=== PATIENT | female | born 1965 | race Caucasian/White ===

== ENCOUNTER 2024-08-25 13:52 | Inpatient (IN) | payer OTHER, SELFPAY ==
[2024-08-25 14:20] VITALS: BP 184/93; PULSE 92; RESP 19; TEMP 37.2; O2SAT 96
[2024-08-25 14:23] VITALS: BP 184/93; PULSE 92; RESP 20; TEMP 37.2; O2SAT 96
--- NOTE | 2024-08-25 16:59 | PC.ADMIT ---
Patient was admitted onto the unit at 14:12 on a 12b from [facility] for treatment of schizoaffective disorder. Patient initially was admitted to [facility] after reporting she had fallen at her long term (per assessment, unclear if this is true) but was notably experiencing psychosis and has not been compliant with her medications while at the long term. Per report from nurses at [facility], patient has refused all medications and has received IM Zyprexa x2 since being at their facility. Upon admission assessment, patient is occasionally oriented to self and that she is in the hospital, other times states My name is not Kate, it's jaleesa! . She presents as labile, with disorganized thought process and is nonsensical at times. When attempting to ask admission questions, patient states I'm not answering anything without my oracle manager! Stop asking me questions, it's in my chart which is probably full of lies! . Patient allowed vitals to be taken but refused to be weighed and began yelling at nurses to bring her to her room during admission assessment. Skin check completed with another nurse; patient has right leg amputation with a red rash covering the right thigh above the amputation site, along with multiple scratches on her left leg and dry, flaky skin to her bilateral arms. Patient has a prosthetic leg which she uses at home, but was given a wheelchair on the unit and has been placed on 5 minute checks.
--- NOTE | 2024-08-25 17:20 | PC.NURSE ---
Patient has refused to answer if she has received the Flu vaccine as of yet for this year, but declined when offered to her today.
[2024-08-25 20:00] VITALS: BP 183/88; PULSE 83; RESP 16; TEMP 36.6; O2SAT 96
[2024-08-26 08:00] VITALS: BP 100/56; PULSE 82; RESP 18; TEMP 36.6; O2SAT 96
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
--- NOTE | 2024-08-26 12:42 | P.CONHOSP_ITS ---
History of Present Illness Data of Consult Service Date: 08/26/24 Primary Care Provider: None Physician HPI Reason for consult: Admission H&P Pt is a 59-year-old female with a PMH significant for?HTN, spn-aemwuao-ozecumjdz type 2 diabetes, peripheral neuropathy, right AKA, GERD, and schizoaffective disorder who is admitted to [facility] for psychosis. Patient lives in a penitentiary and apparently has been noncompliant with medications and self dialogue eating for the past 2 weeks. Patient initially presented with all-over body pain secondary to fall at penitentiary, but patient was observed by staff to be sitting comfortably outside and did not fall. ED imaging negative for acute subluxation or fracture.. Medical consult for admission H&P. ?Patient seen and evaluated in her room where she appears actively psychotic and manic, initially stating her name is Joceline before eventually arriving at [facility]. Patient noted to become agitated at times during interview. Patient particularly worried about getting her correct dose of melatonin at night and gabapentin 3 times a day. Complains of chronic headache, peripheral neuropathy, and back pain, otherwise has no acute medical complaints. Review of Systems Review of Systems: Chronic headache, peripheral neuropathy, and back pain Otherwise no acute medical complaints [facility] Medical History (Updated 08/26/24 @ 14:05 by GRIFFIN Singer) Peripheral neuropathy GERD (gastroesophageal reflux disease) HTN (hypertension) Non-insulin dependent type 2 diabetes mellitus Social History Household Members: Other Household Members Other:: [facility] Housing: Other Housing Other:: [facility] Patient Tobacco Use Status: Never used Tobacco Use of substances other than those prescribed or required for medical reasons: Refusing to respond Currently Displaying Signs/Symptoms of Drug Intoxication Withdrawal: No Any prior treatment program specific to substance use: No Do you feel safe in your current relationship?: No Current Relationship Spiritual Healthcare Practices: refusing to answer [facility] Practices: refusing to answer Advance Directives: No Advance Directives Information Provided: No Do you have thoughts of harming others: None Do you have a plan to hurt others: No Plan Recently lost weight without trying: Unsure How much weight loss: Unsure Eating poorly because of decreased appetite: No Nutrition screen score: 4 Nutrition Risks: No Nutritional Risk Patient : No : No Meds Allergies Allergy/AdvReac Type Severity Reaction Status Date / Time nut - unspecified Allergy Unknown Verified 08/25/24 15:31 Active Medications: Current Medications Acetaminophen (Acetaminophen 325 Mg Tablet) 650 mg PO Q6H PRN PRN Reason: Headache/Pain Mild Scale (1-3) Al Hydroxide/Mg Hydroxide (Magnesium Hydrox/Alum Hydrox 30 Ml Oral.Susp) 30 ml PO Q6H PRN PRN Reason: Heartburn/Nausea Docusate Sodium (Docusate Sodium 100 Mg Capsule) 100 mg PO BID PRN PRN Reason: Constipation Gabapentin (Gabapentin 100 Mg Capsule) 200 mg PO BEDTIME [facility] Last Admin: 08/25/24 21:24 Dose: Not Given Gabapentin (Gabapentin 100 Mg Capsule) 200 mg PO TID PRN PRN Reason: malissa/anxiety Hydroxyzine HCl (Hydroxyzine Hcl 25 Mg Tablet) 25 mg PO Q6H PRN PRN Reason: Anxiety Magnesium Hydroxide (Milk Of Magnesia 30 Ml Oral.Susp) 30 ml PO DAILY PRN PRN Reason: Constipation Melatonin (Melatonin 3 Mg Tablet) 3 mg PO BEDTIME MRX1 [facility] Last Admin: 08/25/24 23:24 Dose: Not Given Nifedipine (Nifedipine Er 30 Mg Tab.Er.24) 30 mg PO DAILY [facility]; Protocol Last Admin: 08/26/24 09:00 Dose: Not Given Olanzapine (Olanzapine Odt 10 Mg Tab.Rapdis) 10 mg TRANSLINGU BEDTIME [facility] Last Admin: 08/25/24 21:24 Dose: Not Given Olanzapine (Olanzapine 5 Mg Tablet) 5 mg PO Q4H PRN PRN Reason: psychosis Omeprazole (Omeprazole 20 Mg Capsule.Dr) 20 mg PO BID@0630,1630 PRN PRN Reason: GERD Oxybutynin Chloride (Oxybutynin Chloride Er 5 Mg Tab.Er.24) 5 mg PO BEDTIME [facility] Last Admin: 08/25/24 21:24 Dose: Not Given Senna (Sennosides 8.6 Mg Tablet) 17.2 mg PO BEDTIME PRN PRN Reason: Constipation Home Medications ?Medication ?Instructions ?Recorded ?Confirmed ?Last Taken ?Type Colace 100 mg PO 2XD PRN Constipation 08/25/24 08/25/24 Unknown History Ditropan XL 10 mg PO BEDTIME 08/25/24 08/25/24 Unknown History Dulera 2 inhalation BID 08/25/24 Unknown History Januvia 50 mg PO DAILY 08/25/24 08/25/24 Unknown History MagOx 400 mg PO 1XD 08/25/24 08/25/24 Unknown History Nifedical XL 30 mg PO 1XD 08/25/24 08/25/24 Unknown History Protonix 20 mg PO DAILY 08/25/24 08/25/24 Unknown History Prozac 40 mg PO DAILY 08/25/24 08/25/24 Unknown History Senokot 17.2 mg PO BEDTIME PRN Constipation 08/25/24 08/25/24 Unknown History calcium carbonate 1,000 mg 2XD PRN Heartburn 08/25/24 08/25/24 Unknown History gabapentin 300 mg PO 3XD 08/25/24 08/25/24 Unknown History metformin 500 mg PO BID 08/25/24 08/25/24 Unknown History olanzapine 15 mg PO BEDTIME 08/25/24 08/25/24 Unknown History trazodone 50 mg PO BEDTIME 08/25/24 08/25/24 Unknown History Physical Exam Vital Signs and Narrative: Vital Signs: Last Vital Signs Temp 97.9 F 08/26/24 08:00 Pulse 82 08/26/24 08:00 Resp 18 08/26/24 08:00 BP 100/56 L 08/26/24 08:00 Pulse Ox 96 08/26/24 08:00 O2 Del Method Room Air 08/26/24 08:00 General: Alert, in no acute distress Resp: CTA bilaterally CVS: S1, S2, RRR GI: +BS, NT, no distention Skin: Warm, dry Neuro: Cranial nerves II-XII grossly intact bilaterally. Motor grossly intact bilaterally Extremities: No edema. Right AKA Psych: Actively manic, psychotic Assessment and Plan (1) Medical clearance for psychiatric admission: Status: Acute Plan Pt is a 59-year-old female with a PMH significant for?HTN, jyh-hyutkyj-prhsxuaoy type 2 diabetes, peripheral neuropathy, right AKA, GERD, and schizoaffective disorder who is admitted to [facility] for psychosis. Patient lives in a penitentiary and apparently has been noncompliant with medications and self dialogue eating for the past 2 weeks. Patient initially presented with all-over body pain secondary to fall at penitentiary, but patient was observed by staff to be sitting comfortably outside and did not fall. ED imaging negative for acute subluxation or fracture.. Medical consult for admission H&P. Mood disorder Plan as per Psychiatry HTN Initially hypertensive up to Continue nifedipine Pap-qjiavjq-ifxwyppnp type 2 diabetes Continue Januvia, metformin Encouraged diabetic diet and diabetic snacking Peripheral neuropathy Continue gabapentin GERD Continue PPI Thank you for allowing us to participate in the care of this patient. Signing off at this time. Please re-consult if any acute complaints or issues arise.
[2024-08-26 20:00] VITALS: BP 164/75; PULSE 84; RESP 18; TEMP 36.8; O2SAT 98
[2024-08-26] MEDS: Melatonin 3 MG TABLET PO (21:23)
--- NOTE | 2024-08-27 08:15 | P.PNPSI_ITS ---
Subjective Subjective Date of Service: 08/27/24 Reason For Visit: Schizoaffective Subjective Notes: Section 12B Interim History: The nursing staff reported that overnight she took only melatonin she wants to be called jaleesa and she had outburst she slept on and off. On admission she had a foul-smelling urine and she has not allowed to have blood work or UA. On interview the patient is grossly psychotic with labile mood. Mental Status Exam Mental Status Exam Patient Appearance: Appropriate Patient Orientation: Person Level of Consciousness: Awake Patient Behavior: Guarded and Restless Affect Description: Labile Ability to Follow Directions: Poor Speech Pattern: Impoverished Hallucinations: Auditory Delusions: Paranoid Ideation and Ideas of Reference Thought Process: Distracted Thought Content: positive for [place] and positive for Poverty of Content Judgement: Poor Diagnostics Vital Signs (24Hr): Vital Signs - 24 hr 08/26/24 20:00 Temperature 98.2 F Pulse Rate 84 Respiratory Rate 18 Blood Pressure 164/75 H Pulse Oximetry 98 Oxygen Delivery Method Room Air Medications Medications Current Medications Acetaminophen (Acetaminophen 325 Mg Tablet) 650 mg PO Q6H PRN PRN Reason: Headache/Pain Mild Scale (1-3) Al Hydroxide/Mg Hydroxide (Magnesium Hydrox/Alum Hydrox 30 Ml Oral.Susp) 30 ml PO Q6H PRN PRN Reason: Heartburn/Nausea Docusate Sodium (Docusate Sodium 100 Mg Capsule) 100 mg PO BID PRN PRN Reason: Constipation Gabapentin (Gabapentin 100 Mg Capsule) 200 mg PO BEDTIME [facility] Last Admin: 08/26/24 22:07 Dose: Not Given Gabapentin (Gabapentin 100 Mg Capsule) 200 mg PO TID PRN PRN Reason: malissa/anxiety Hydroxyzine HCl (Hydroxyzine Hcl 25 Mg Tablet) 25 mg PO Q6H PRN PRN Reason: Anxiety Magnesium Hydroxide (Milk Of Magnesia 30 Ml Oral.Susp) 30 ml PO DAILY PRN PRN Reason: Constipation Melatonin (Melatonin 3 Mg Tablet) 3 mg PO BEDTIME MRX1 [facility] Last Admin: 08/26/24 22:09 Dose: Not Given Nifedipine (Nifedipine Er 30 Mg Tab.Er.24) 30 mg PO DAILY [facility]; Protocol Last Admin: 08/26/24 09:00 Dose: Not Given Olanzapine (Olanzapine Odt 10 Mg Tab.Rapdis) 10 mg TRANSLINGU BEDTIME [facility] Last Admin: 08/26/24 22:08 Dose: Not Given Olanzapine (Olanzapine 5 Mg Tablet) 5 mg PO Q4H PRN PRN Reason: psychosis Omeprazole (Omeprazole 20 Mg Capsule.Dr) 20 mg PO BID@0630,1630 PRN PRN Reason: GERD Oxybutynin Chloride (Oxybutynin Chloride Er 5 Mg Tab.Er.24) 5 mg PO BEDTIME [facility] Last Admin: 08/26/24 22:08 Dose: Not Given Senna (Sennosides 8.6 Mg Tablet) 17.2 mg PO BEDTIME PRN PRN Reason: Constipation Allergies Allergies Allergy/AdvReac Type Severity Reaction Status Date / Time nut - unspecified Allergy Unknown Verified 08/25/24 15:31 Assessment & Plan Assessment & Plan (1) Schizoaffective disorder: Status: Acute Code(s): F25.9 - Schizoaffective disorder, unspecified Plan The patient is an elderly female with a past history of schizoaffective disorder, resident of a long-term who was admitted to the emergency room of a local hospital for exacerbation of psychosis. The patient remains grossly psychotic unable to provide any information. Plan 1. Gather collateral information. 2. Continue section 12 B. 3. We will try to gather her medication reconciliation form. On the meantime she has Zyprexa p.r.n. that it seems that it was effective as per report of the emergency room. 4. Continue 15 minute checks Reason for continued inpatient stay Substantial Risk for: inability to function, rapid decompensation and med/psych decompensation Time Spent With Patient Time: Total time managing care of this patient today __20__ minutes.
[2024-08-27 20:00] VITALS: BP 154/74; PULSE 78; RESP 18; TEMP 36.8; O2SAT 95
[2024-08-27] MEDS: Gabapentin 100 MG CAPSULE 200 MG PO (22:20)
[2024-08-27] MEDS: Melatonin 3 MG TABLET PO (22:20)
[2024-08-27] MEDS: Ibuprofen 800 MG TABLET PO (23:00)
[2024-08-28 08:36] VITALS: BP 144/78; PULSE 76; RESP 12; TEMP 36.3; O2SAT 96
[2024-08-28] MEDS: Ibuprofen 800 MG TABLET PO (09:48)
--- NOTE | 2024-08-28 13:05 | P.PNPSI_ITS ---
Subjective Subjective Date of Service: 08/28/24 Reason For Visit: Schizoaffective Subjective Notes: Section 7 and Section 8 Interim History: The nursing staff reported the patient refused all medications and care she was seen self dialogue in noncompliant and very explosive at times. The occupational therapist reported that she was doing fair on a group and suddenly she got angry and broke her walker. Today she requested her magnesium on other medications, she agreed to have blood work today. We are filing for Section 7 and 8. On interview the patient denies new symptoms she is pleasant cooperative but unpredictable. Today we get the role years order and we are putting the IM backup. Mental Status Exam Mental Status Exam Patient Appearance: Appropriate (On wheelchair, amputated) and Unkempt Patient Orientation: Person Level of Consciousness: Awake Patient Behavior: Guarded Mood Description: Withdrawn Affect Description: Labile Patient Cognition Impaired: Yes Ability to Follow Directions: Fair Speech Pattern: Clear Hallucinations: Auditory Delusions: Paranoid Ideation and Ideas of Reference Thought Process: Distracted and Slowed Thinking Thought Content: positive for [place], positive for [place] and positive for Per[place] Judgement: Poor Diagnostics Vital Signs (24Hr): Vital Signs - 24 hr 08/27/24 20:00 08/28/24 08:36 Temperature 98.2 F 97.4 F Pulse Rate 78 76 Respiratory Rate 18 12 Blood Pressure 154/74 H 144/78 H Pulse Oximetry 95 96 Oxygen Delivery Method Room Air Room Air Medications Medications Current Medications Acetaminophen (Acetaminophen 325 Mg Tablet) 650 mg PO Q6H PRN PRN Reason: Headache/Pain Mild Scale (1-3) Al Hydroxide/Mg Hydroxide (Magnesium Hydrox/Alum Hydrox 30 Ml Oral.Susp) 30 ml PO Q6H PRN PRN Reason: Heartburn/Nausea Docusate Sodium (Docusate Sodium 100 Mg Capsule) 100 mg PO BID PRN PRN Reason: Constipation Gabapentin (Gabapentin 100 Mg Capsule) 200 mg PO BEDTIME [facility] Last Admin: 08/27/24 22:20 Dose: 200 mg Gabapentin (Gabapentin 100 Mg Capsule) 200 mg PO TID PRN PRN Reason: malissa/anxiety Hydroxyzine HCl (Hydroxyzine Hcl 25 Mg Tablet) 25 mg PO Q6H PRN PRN Reason: Anxiety Ibuprofen (Ibuprofen 800 Mg Tablet) 800 mg PO Q8H PRN PRN Reason: Pain, Severe (Pain Scale 7-10) Last Admin: 08/28/24 09:48 Dose: 800 mg Magnesium Hydroxide (Milk Of Magnesia 30 Ml Oral.Susp) 30 ml PO DAILY PRN PRN Reason: Constipation Melatonin (Melatonin 3 Mg Tablet) 3 mg PO BEDTIME MRX1 [facility] Last Admin: 08/27/24 22:34 Dose: Not Given Nifedipine (Nifedipine Er 30 Mg Tab.Er.24) 30 mg PO DAILY [facility]; Protocol Last Admin: 08/28/24 09:05 Dose: Not Given Olanzapine (Olanzapine Odt 10 Mg Tab.Rapdis) 10 mg TRANSLINGU BEDTIME [facility] Last Admin: 08/27/24 22:22 Dose: Not Given Olanzapine (Olanzapine 5 Mg Tablet) 5 mg PO Q4H PRN PRN Reason: psychosis Olanzapine (Olanzapine 10 Mg Vial) 10 mg IM BEDTIME PRN PRN Reason: refusal of PO Zyprexa Omeprazole (Omeprazole 20 Mg Capsule.Dr) 20 mg PO BID@0630,1630 PRN PRN Reason: GERD Oxybutynin Chloride (Oxybutynin Chloride Er 5 Mg Tab.Er.24) 5 mg PO BEDTIME [facility] Last Admin: 08/27/24 22:22 Dose: Not Given Senna (Sennosides 8.6 Mg Tablet) 17.2 mg PO BEDTIME PRN PRN Reason: Constipation Allergies Allergies Allergy/AdvReac Type Severity Reaction Status Date / Time nut - unspecified Allergy Unknown Verified 08/25/24 15:31 Assessment & Plan Assessment & Plan (1) Schizoaffective disorder: Status: Acute Code(s): F25.9 - Schizoaffective disorder, unspecified Plan The patient is an elderly female with a past history of schizoaffective disorder, resident of a senior care who was admitted to the emergency room of a local hospital for exacerbation of psychosis. The patient remains grossly psychotic unable to provide any information. Plan 1. Gather collateral information. 2. Continue section 12 B. we have to filed for Section 7 and 8 on August 28 3. We will try to gather her medication reconciliation form. On the meantime she has Zyprexa p.r.n. that it seems that it was effective as per report of the emergency room. 4. Continue 15 minute checks. 5. We got her role years order and we are going to put IM backup. Reason for continued inpatient stay Substantial Risk for: inability to function, rapid decompensation and med/psych decompensation Time Spent With Patient Time: Total time managing care of this patient today _20___ minutes.
[2024-08-28] MEDS: Melatonin 3 MG TABLET PO (20:47)
[2024-08-29] MEDS: Gabapentin 100 MG CAPSULE 200 MG PO (19:58)
[2024-08-29] MEDS: Melatonin 3 MG TABLET PO (19:58)
[2024-08-29] MEDS: OLANZapine ODT 10 MG TAB.RAPDIS TRANSLINGU (19:59)
[2024-08-29 20:00] VITALS: BP 181/89; PULSE 75; RESP 16; TEMP 37.1; O2SAT 96
[2024-08-29] MEDS: oxyBUTYnin chloride ER 5 MG TAB.ER.24 PO (20:00)
--- NOTE | 2024-08-29 20:00 | P.PNPSI_ITS ---
Subjective Subjective Date of Service: 08/29/24 Reason For Visit: Schizoaffective Subjective Notes: Section 7 Interim History: pt pleasant in [place] with some periods of reactivity talking about magnesium, has been refusing vital signs and medication Mental Status Exam Mental Status Exam Patient Appearance: Appropriate (On wheelchair, amputated) and Unkempt Patient Orientation: Person Level of Consciousness: Awake Patient Behavior: Guarded Mood Description: Labile and Apprehensive Affect Description: Labile Patient Cognition Impaired: Yes Ability to Follow Directions: Fair Speech Pattern: Clear Hallucinations: Auditory Delusions: Paranoid Ideation and Ideas of Reference Thought Process: Distracted Thought Content: positive for [place], positive for Circumstantial and positive for Perseveration Judgement: Poor Judgement and Insight: No insight into illness need for tx Medications Medications Current Medications Acetaminophen (Acetaminophen 325 Mg Tablet) 650 mg PO Q6H PRN PRN Reason: Headache/Pain Mild Scale (1-3) Al Hydroxide/Mg Hydroxide (Magnesium Hydrox/Alum Hydrox 30 Ml Oral.Susp) 30 ml PO Q6H PRN PRN Reason: Heartburn/Nausea Docusate Sodium (Docusate Sodium 100 Mg Capsule) 100 mg PO BID PRN PRN Reason: Constipation Gabapentin (Gabapentin 100 Mg Capsule) 200 mg PO BEDTIME [facility] Last Admin: 08/28/24 20:52 Dose: Not Given Gabapentin (Gabapentin 100 Mg Capsule) 200 mg PO TID PRN PRN Reason: malissa/anxiety Hydroxyzine HCl (Hydroxyzine Hcl 25 Mg Tablet) 25 mg PO Q6H PRN PRN Reason: Anxiety Ibuprofen (Ibuprofen 800 Mg Tablet) 800 mg PO Q8H PRN PRN Reason: Pain, Severe (Pain Scale 7-10) Last Admin: 08/28/24 09:48 Dose: 800 mg Magnesium Hydroxide (Milk Of Magnesia 30 Ml Oral.Susp) 30 ml PO DAILY PRN PRN Reason: Constipation Melatonin (Melatonin 3 Mg Tablet) 3 mg PO BEDTIME MRX1 [facility] Last Admin: 08/28/24 23:57 Dose: Not Given Nifedipine (Nifedipine Er 30 Mg Tab.Er.24) 30 mg PO DAILY [facility]; Protocol Last Admin: 08/29/24 08:36 Dose: Not Given Olanzapine (Olanzapine Odt 10 Mg Tab.Rapdis) 10 mg TRANSLINGU BEDTIME [facility] Last Admin: 08/28/24 20:52 Dose: Not Given Olanzapine (Olanzapine 5 Mg Tablet) 5 mg PO Q4H PRN PRN Reason: psychosis Olanzapine (Olanzapine 10 Mg Vial) 10 mg IM BEDTIME PRN PRN Reason: refusal of PO Zyprexa Omeprazole (Omeprazole 20 Mg Capsule.Dr) 20 mg PO BID@0630,1630 PRN PRN Reason: GERD Oxybutynin Chloride (Oxybutynin Chloride Er 5 Mg Tab.Er.24) 5 mg PO BEDTIME [facility] Last Admin: 08/28/24 20:47 Dose: Not Given Senna (Sennosides 8.6 Mg Tablet) 17.2 mg PO BEDTIME PRN PRN Reason: Constipation Allergies Allergies Allergy/AdvReac Type Severity Reaction Status Date / Time nut - unspecified Allergy Unknown Verified 08/25/24 15:31 Assessment & Plan Assessment & Plan (1) Schizoaffective disorder: Status: Acute Code(s): F25.9 - Schizoaffective disorder, unspecified Plan The patient is an elderly female with a past history of schizoaffective disorder, [facility] who was admitted to the emergency room of a local hospital for exacerbation of psychosis. The patient remains grossly psychotic unable to provide any information. Plan 1. Gather collateral information. 2. Continue section 12 B. we have to filed for Section 7 and 8 on August 28 3. We will try to gather her medication reconciliation form. On the meantime she has Zyprexa p.r.n. that it seems that it was effective as per report of the emergency room. 4. Continue 15 minute checks. 5. We got her role years order and we are going to put IM backup. Reason for continued inpatient stay Substantial Risk for: inability to function and rapid decompensation Time Spent With Patient Time: Total time managing care of this patient today ____ minutes.
[2024-08-29] MEDS: Ibuprofen 800 MG TABLET PO (21:20)
[2024-08-30 08:05] VITALS: BP 181/89; PULSE 75; RESP 18; TEMP 37.1; O2SAT 96
--- NOTE | 2024-08-30 11:57 | HO.PSYCHPN ---
Subjective Subjective Date of Service: 08/30/24 Reason For Visit: Schizoaffective Subjective Notes: Section 7 and Section 8 Interim History: The nursing staff reported the patient refused vital signs yesterday. She had been nonsensical irritable unpredictable behavior. Last night she took her medications. Today on interview she was pleasant and cooperative with me she requested her magnesium back time ordering it. Apparently she has refused blood work. Mental Status Exam Mental Status Exam Patient Appearance: Appropriate Patient Orientation: Person and Situation Level of Consciousness: Awake and Appropriate Patient Behavior: Guarded and Passive Mood Description: Withdrawn Affect Description: Constricted Patient Cognition Impaired: Yes Ability to Follow Directions: Good Speech Pattern: Clear Hallucinations: Auditory Delusions: Paranoid Ideation and Ideas of Reference Thought Process: Distracted and Slowed Thinking Thought Content: positive for [place] and positive for Poverty of Content Judgement: Poor Diagnostics Vital Signs (24Hr): Vital Signs - 24 hr 08/29/24 20:00 Temperature 98.8 F Pulse Rate 75 Respiratory Rate 16 Blood Pressure 181/89 H Pulse Oximetry 96 Oxygen Delivery Method Room Air Medications Medications Current Medications Acetaminophen (Acetaminophen 325 Mg Tablet) 650 mg PO Q6H PRN PRN Reason: Headache/Pain Mild Scale (1-3) Al Hydroxide/Mg Hydroxide (Magnesium Hydrox/Alum Hydrox 30 Ml Oral.Susp) 30 ml PO Q6H PRN PRN Reason: Heartburn/Nausea Docusate Sodium (Docusate Sodium 100 Mg Capsule) 100 mg PO BID PRN PRN Reason: Constipation Gabapentin (Gabapentin 100 Mg Capsule) 200 mg PO BEDTIME [facility] Last Admin: 08/29/24 19:58 Dose: 200 mg Gabapentin (Gabapentin 100 Mg Capsule) 200 mg PO TID PRN PRN Reason: malissa/anxiety Hydroxyzine HCl (Hydroxyzine Hcl 25 Mg Tablet) 25 mg PO Q6H PRN PRN Reason: Anxiety Ibuprofen (Ibuprofen 800 Mg Tablet) 800 mg PO Q8H PRN PRN Reason: Pain, Severe (Pain Scale 7-10) Last Admin: 08/29/24 21:20 Dose: 800 mg Magnesium Hydroxide (Milk Of Magnesia 30 Ml Oral.Susp) 30 ml PO DAILY PRN PRN Reason: Constipation Melatonin (Melatonin 3 Mg Tablet) 3 mg PO BEDTIME MRX1 [facility] Last Admin: 08/29/24 23:27 Dose: Not Given Nifedipine (Nifedipine Er 30 Mg Tab.Er.24) 30 mg PO DAILY [facility]; Protocol Last Admin: 08/30/24 09:26 Dose: Not Given Olanzapine (Olanzapine Odt 10 Mg Tab.Rapdis) 10 mg TRANSLINGU BEDTIME [facility] Last Admin: 08/29/24 19:59 Dose: 10 mg Olanzapine (Olanzapine 5 Mg Tablet) 5 mg PO Q4H PRN PRN Reason: psychosis Olanzapine (Olanzapine 10 Mg Vial) 10 mg IM BEDTIME PRN PRN Reason: refusal of PO Zyprexa Omeprazole (Omeprazole 20 Mg Capsule.Dr) 20 mg PO BID@0630,1630 PRN PRN Reason: GERD Oxybutynin Chloride (Oxybutynin Chloride Er 5 Mg Tab.Er.24) 5 mg PO BEDTIME [facility] Last Admin: 08/29/24 20:00 Dose: 5 mg Senna (Sennosides 8.6 Mg Tablet) 17.2 mg PO BEDTIME PRN PRN Reason: Constipation Allergies Allergies Allergy/AdvReac Type Severity Reaction Status Date / Time nut - unspecified Allergy Unknown Verified 08/25/24 15:31 Assessment & Plan Assessment & Plan (1) Schizoaffective disorder: Status: Acute Code(s): F25.9 - Schizoaffective disorder, unspecified Plan The patient is an elderly female with a past history of schizoaffective disorder, resident of a nursing home who was admitted to the emergency room of a local hospital for exacerbation of psychosis. The patient remains grossly psychotic unable to provide any information. Plan 1. Gather collateral information. 2. Continue section 12 B. we have to filed for Section 7 and 8 on August 28 3. We will try to gather her medication reconciliation form. On the meantime she has Zyprexa p.r.n. that it seems that it was effective as per report of the emergency room. 4. Continue 15 minute checks. 5. We got her Ont[facility] order and we are going to put IM backup. Reason for continued inpatient stay Substantial Risk for: inability to function, rapid decompensation and med/psych decompensation Time Spent With Patient Time: Total time managing care of this patient today __20__ minutes.
[2024-08-30] MEDS: OLANZapine ODT 10 MG TAB.RAPDIS TRANSLINGU (19:51)
[2024-08-30] MEDS: Gabapentin 100 MG CAPSULE 200 MG PO (19:52)
[2024-08-30] MEDS: Magnesium Oxide 400 MG TABLET PO (19:53)
[2024-08-30 20:00] VITALS: BP 149/77; PULSE 86; TEMP 36.6; O2SAT 92
[2024-08-30] MEDS: Ibuprofen 800 MG TABLET PO (22:04)
[2024-08-31 08:00] VITALS: BP 165/89; PULSE 82; RESP 20; TEMP 36.6; O2SAT 95
--- NOTE | 2024-08-31 12:57 | P.PNPSI_ITS ---
Subjective Subjective Date of Service: 08/31/24 Reason For Visit: Schizoaffective Subjective Notes: Section 7 Interim History: Patient on a section 7 did take olanzapine refusing point of care refused blood pressure medication not overly aggressive Mental Status Exam Mental Status Exam Patient Appearance: Appropriate Patient Orientation: Person and Situation Level of Consciousness: Awake and Appropriate Patient Behavior: Guarded and Passive Mood Description: Withdrawn and Flat Affect Description: Constricted Patient Cognition Impaired: Yes Ability to Follow Directions: Good Speech Pattern: Clear Hallucinations: Auditory Delusions: Paranoid Ideation and Ideas of Reference Thought Process: Distracted and Slowed Thinking Thought Content: positive for [place] and positive for Poverty of Content Judgement: Poor Diagnostics Vital Signs (24Hr): Vital Signs - 24 hr 08/30/24 20:00 08/31/24 08:00 Temperature 98 F 97.8 F Pulse Rate 86 82 Respiratory Rate 20 Blood Pressure 149/77 H 165/89 H Pulse Oximetry 92 95 Oxygen Delivery Method Room Air Room Air Medications Medications Current Medications Acetaminophen (Acetaminophen 325 Mg Tablet) 650 mg PO Q6H PRN PRN Reason: Headache/Pain Mild Scale (1-3) Al Hydroxide/Mg Hydroxide (Magnesium Hydrox/Alum Hydrox 30 Ml Oral.Susp) 30 ml PO Q6H PRN PRN Reason: Heartburn/Nausea Docusate Sodium (Docusate Sodium 100 Mg Capsule) 100 mg PO BID PRN PRN Reason: Constipation Gabapentin (Gabapentin 100 Mg Capsule) 200 mg PO BEDTIME [facility] Last Admin: 08/30/24 19:52 Dose: 200 mg Gabapentin (Gabapentin 100 Mg Capsule) 200 mg PO TID PRN PRN Reason: malissa/anxiety Hydroxyzine HCl (Hydroxyzine Hcl 25 Mg Tablet) 25 mg PO Q6H PRN PRN Reason: Anxiety Ibuprofen (Ibuprofen 800 Mg Tablet) 800 mg PO Q8H PRN PRN Reason: Pain, Severe (Pain Scale 7-10) Last Admin: 08/30/24 22:04 Dose: 800 mg Magnesium Hydroxide (Milk Of Magnesia 30 Ml Oral.Susp) 30 ml PO DAILY PRN PRN Reason: Constipation Magnesium Oxide (Magnesium Oxide 400 Mg Tablet) 400 mg PO BEDTIME [facility] Last Admin: 08/30/24 19:53 Dose: 400 mg Melatonin (Melatonin 3 Mg Tablet) 3 mg PO BEDTIME MRX1 [facility] Last Admin: 08/30/24 22:10 Dose: Not Given Nifedipine (Nifedipine Er 30 Mg Tab.Er.24) 30 mg PO DAILY [facility]; Protocol Last Admin: 08/31/24 08:38 Dose: Not Given Olanzapine (Olanzapine Odt 10 Mg Tab.Rapdis) 10 mg TRANSLINGU BEDTIME [facility] Last Admin: 08/30/24 19:51 Dose: 10 mg Olanzapine (Olanzapine 5 Mg Tablet) 5 mg PO Q4H PRN PRN Reason: psychosis Olanzapine (Olanzapine 10 Mg Vial) 10 mg IM BEDTIME PRN PRN Reason: refusal of PO Zyprexa Omeprazole (Omeprazole 20 Mg Capsule.Dr) 20 mg PO BID@0630,1630 PRN PRN Reason: GERD Oxybutynin Chloride (Oxybutynin Chloride Er 5 Mg Tab.Er.24) 5 mg PO BEDTIME [facility] Last Admin: 08/30/24 19:56 Dose: Not Given Senna (Sennosides 8.6 Mg Tablet) 17.2 mg PO BEDTIME PRN PRN Reason: Constipation Allergies Allergies Allergy/AdvReac Type Severity Reaction Status Date / Time nut - unspecified Allergy Unknown Verified 08/25/24 15:31 Assessment & Plan Assessment & Plan (1) Schizoaffective disorder: Status: Acute Code(s): F25.9 - Schizoaffective disorder, unspecified Plan The patient is an elderly female with a past history of schizoaffective disorder, resident of a [facility] who was admitted to the emergency room of a local hospital for exacerbation of psychosis. The patient remains grossly psychotic unable to provide any information. Plan 1. Gather collateral information. 2. Continue section 12 B. we have to filed for Section 7 and 8 on August 28 3. We will try to gather her medication reconciliation form. On the meantime she has Zyprexa p.r.n. that it seems that it was effective as per report of the emergency room. 4. Continue 15 minute checks. 5. We got her Ontiver[facility] order and we are going to put IM backup. 08/31/2024 Continue olanzapine with IM backup monitor blood pressure and blood sugar Informed Consent: does not understand Reason for continued inpatient stay Substantial Risk for: inability to function and rapid decompensation Time Spent With Patient Time: Total time managing care of this patient today ____ minutes.
--- NOTE | 2024-08-31 12:58 | P.PNPSI_ITS ---
Subjective Subjective Reason For Visit: Schizoaffective Diagnostics Vital Signs (24Hr): Vital Signs - 24 hr 08/30/24 20:00 08/31/24 08:00 Temperature 98 F 97.8 F Pulse Rate 86 82 Respiratory Rate 20 Blood Pressure 149/77 H 165/89 H Pulse Oximetry 92 95 Oxygen Delivery Method Room Air Room Air Medications Medications Current Medications Acetaminophen (Acetaminophen 325 Mg Tablet) 650 mg PO Q6H PRN PRN Reason: Headache/Pain Mild Scale (1-3) Al Hydroxide/Mg Hydroxide (Magnesium Hydrox/Alum Hydrox 30 Ml Oral.Susp) 30 ml PO Q6H PRN PRN Reason: Heartburn/Nausea Docusate Sodium (Docusate Sodium 100 Mg Capsule) 100 mg PO BID PRN PRN Reason: Constipation Gabapentin (Gabapentin 100 Mg Capsule) 200 mg PO BEDTIME [facility] Last Admin: 08/30/24 19:52 Dose: 200 mg Gabapentin (Gabapentin 100 Mg Capsule) 200 mg PO TID PRN PRN Reason: malissa/anxiety Hydroxyzine HCl (Hydroxyzine Hcl 25 Mg Tablet) 25 mg PO Q6H PRN PRN Reason: Anxiety Ibuprofen (Ibuprofen 800 Mg Tablet) 800 mg PO Q8H PRN PRN Reason: Pain, Severe (Pain Scale 7-10) Last Admin: 08/30/24 22:04 Dose: 800 mg Magnesium Hydroxide (Milk Of Magnesia 30 Ml Oral.Susp) 30 ml PO DAILY PRN PRN Reason: Constipation Magnesium Oxide (Magnesium Oxide 400 Mg Tablet) 400 mg PO BEDTIME [facility] Last Admin: 08/30/24 19:53 Dose: 400 mg Melatonin (Melatonin 3 Mg Tablet) 3 mg PO BEDTIME MRX1 [facility] Last Admin: 08/30/24 22:10 Dose: Not Given Nifedipine (Nifedipine Er 30 Mg Tab.Er.24) 30 mg PO DAILY [facility]; Protocol Last Admin: 08/31/24 08:38 Dose: Not Given Olanzapine (Olanzapine Odt 10 Mg Tab.Rapdis) 10 mg TRANSLINGU BEDTIME [facility] Last Admin: 08/30/24 19:51 Dose: 10 mg Olanzapine (Olanzapine 5 Mg Tablet) 5 mg PO Q4H PRN PRN Reason: psychosis Olanzapine (Olanzapine 10 Mg Vial) 10 mg IM BEDTIME PRN PRN Reason: refusal of PO Zyprexa Omeprazole (Omeprazole 20 Mg Capsule.Dr) 20 mg PO BID@0630,1630 PRN PRN Reason: GERD Oxybutynin Chloride (Oxybutynin Chloride Er 5 Mg Tab.Er.24) 5 mg PO BEDTIME [facility] Last Admin: 08/30/24 19:56 Dose: Not Given Senna (Sennosides 8.6 Mg Tablet) 17.2 mg PO BEDTIME PRN PRN Reason: Constipation Allergies Allergies Allergy/AdvReac Type Severity Reaction Status Date / Time nut - unspecified Allergy Unknown Verified 08/25/24 15:31 Assessment & Plan Assessment & Plan (1) Schizoaffective disorder: Status: Acute Code(s): F25.9 - Schizoaffective disorder, unspecified Plan The patient is an elderly female with a past history of schizoaffective disorder, [facility] [place] [facility] who was admitted to the emergency room of a local hospital for exacerbation of psychosis. The patient remains grossly psychotic unable to provide any information. Plan 1. Gather collateral information. 2. Continue section 12 B. we have to filed for Section 7 and 8 on August 28 3. We will try to gather her medication reconciliation form. On the meantime she has Zapoorvaa p.r.n. that it seems that it was effective as per report of the emergency room. 4. Continue 15 minute checks. 5. We got her Ontiver[facility] order and we are going to put IM backup. Time Spent With Patient Time: Total time managing care of this patient today ____ minutes.
[2024-08-31] MEDS: Ibuprofen 800 MG TABLET PO (15:32)
[2024-08-31 19:59] VITALS: BP 166/107; PULSE 74; TEMP 36.8; O2SAT 97
[2024-08-31] MEDS: OLANZapine ODT 10 MG TAB.RAPDIS TRANSLINGU (20:44)
[2024-08-31] MEDS: Gabapentin 100 MG CAPSULE 200 MG PO (20:46)
[2024-08-31] MEDS: Magnesium Oxide 400 MG TABLET PO (20:46)
[2024-09-01] MEDS: Ibuprofen 800 MG TABLET PO (06:51)
[2024-09-01 07:05] LABS: Glucose, Whole Blood 141 mg/dL (60-115)
[2024-09-01 08:00] VITALS: BP 145/92; PULSE 80; RESP 18; TEMP 36.1; O2SAT 97
[2024-09-01 09:58] VITALS: BP 137/63
[2024-09-01 19:35] VITALS: BP 161/77; PULSE 77; RESP 18; TEMP 37.1; O2SAT 96
[2024-09-01 19:56] LABS: Glucose, Whole Blood 118 mg/dL (60-115)
[2024-09-01] MEDS: Gabapentin 100 MG CAPSULE 200 MG PO (20:04)
[2024-09-01] MEDS: Magnesium Oxide 400 MG TABLET PO (20:05)
[2024-09-01] MEDS: OLANZapine ODT 10 MG TAB.RAPDIS TRANSLINGU (20:05)
--- NOTE | 2024-09-01 20:58 | P.PNPSI_ITS ---
Subjective Subjective Date of Service: 09/01/24 Reason For Visit: Schizoaffective Subjective Notes: Section 7 Interim History: Patient on a section 7 does take olanzapine 10 mg bedtime refusing point of care refused blood pressure medication not overly aggressive somewhat isolative. Remains with psychotic preoccupation Medication Compliance: Intermittent Mental Status Exam Mental Status Exam Patient Appearance: Appropriate Patient Orientation: Person and Situation Level of Consciousness: Awake and Appropriate Patient Behavior: Appropriate Behavior Comments: Very talkative about elements of her life and music not wanting to engage regar ding treatment issues Mood Description: Withdrawn and Anxious Affect Description: Constricted and Apprehensive Patient Cognition Impaired: Yes Ability to Follow Directions: Good Speech Pattern: Clear Hallucinations: Auditory Delusions: Paranoid Ideation and Ideas of Reference Thought Process: Distracted and Rumination Thought Content: positive for [place], negative for Circumstantial, positive for Thought Blocking, negative for Suicidal Ideation or negative for Homicidal Ideation Judgement: Poor Diagnostics Vital Signs (24Hr): Vital Signs - 24 hr 09/01/24 08:00 09/01/24 09:58 09/01/24 19:35 Temperature 97.0 F 98.7 F Pulse Rate 80 77 Respiratory Rate 18 18 Blood Pressure 145/92 H 137/63 161/77 H Pulse Oximetry 97 96 Oxygen Delivery Method Room Air Room Air Labs Labs: Laboratory Results - last 48 hr 09/01/24 09/01/24 06:56 19:47 POC Glucose 141 H 118 H Medications Medications Current Medications Acetaminophen (Acetaminophen 325 Mg Tablet) 650 mg PO Q6H PRN PRN Reason: Headache/Pain Mild Scale (1-3) Al Hydroxide/Mg Hydroxide (Magnesium Hydrox/Alum Hydrox 30 Ml Oral.Susp) 30 ml PO Q6H PRN PRN Reason: Heartburn/Nausea Docusate Sodium (Docusate Sodium 100 Mg Capsule) 100 mg PO BID PRN PRN Reason: Constipation Gabapentin (Gabapentin 100 Mg Capsule) 200 mg PO BEDTIME [facility] Last Admin: 09/01/24 20:04 Dose: 200 mg Gabapentin (Gabapentin 100 Mg Capsule) 200 mg PO TID PRN PRN Reason: malissa/anxiety Hydroxyzine HCl (Hydroxyzine Hcl 25 Mg Tablet) 25 mg PO Q6H PRN PRN Reason: Anxiety Ibuprofen (Ibuprofen 800 Mg Tablet) 800 mg PO Q8H PRN PRN Reason: Pain, Severe (Pain Scale 7-10) Last Admin: 09/01/24 06:51 Dose: 800 mg Magnesium Hydroxide (Milk Of Magnesia 30 Ml Oral.Susp) 30 ml PO DAILY PRN PRN Reason: Constipation Magnesium Oxide (Magnesium Oxide 400 Mg Tablet) 400 mg PO BEDTIME [facility] Last Admin: 09/01/24 20:05 Dose: 400 mg Melatonin (Melatonin 3 Mg Tablet) 3 mg PO BEDTIME MRX1 [facility] Last Admin: 09/01/24 20:06 Dose: Not Given Nifedipine (Nifedipine Er 30 Mg Tab.Er.24) 30 mg PO DAILY [facility]; Protocol Last Admin: 09/01/24 09:58 Dose: Not Given Olanzapine (Olanzapine Odt 10 Mg Tab.Rapdis) 10 mg TRANSLINGU BEDTIME [facility] Last Admin: 09/01/24 20:05 Dose: 10 mg Olanzapine (Olanzapine 5 Mg Tablet) 5 mg PO Q4H PRN PRN Reason: psychosis Olanzapine (Olanzapine 10 Mg Vial) 10 mg IM BEDTIME PRN PRN Reason: refusal of PO Zyprexa Omeprazole (Omeprazole 20 Mg Capsule.Dr) 20 mg PO BID@0630,1630 PRN PRN Reason: GERD Oxybutynin Chloride (Oxybutynin Chloride Er 5 Mg Tab.Er.24) 5 mg PO BEDTIME [facility] Last Admin: 09/01/24 20:07 Dose: Not Given Senna (Sennosides 8.6 Mg Tablet) 17.2 mg PO BEDTIME PRN PRN Reason: Constipation Allergies Allergies Allergy/AdvReac Type Severity Reaction Status Date / Time nut - unspecified Allergy Unknown Verified 08/25/24 15:31 Assessment & Plan Assessment & Plan (1) Schizoaffective disorder: Status: Acute Code(s): F25.9 - Schizoaffective disorder, unspecified Plan The patient is an elderly female with a past history of schizoaffective disorder, resident of a [facility] who was admitted to the emergency room of a local hospital for exacerbation of psychosis. The patient remains grossly psychotic unable to provide any information. Plan 1. Gather collateral information. 2. Continue section 12 B. we have to filed for Section 7 and 8 on August 28 3. We will try to gather her medication reconciliation form. On the meantime she has Zyprexa p.r.n. that it seems that it was effective as per report of the emergency room. 4. Continue 15 minute checks. 5. We got her Ontiver[facility] order and we are going to put IM backup. 08/31/2024 Continue olanzapine with IM backup monitor blood pressure and blood sugar Informed Consent: does not understand and further education needed Reason for continued inpatient stay Substantial Risk for: inability to function and med/psych decompensation Time Spent With Patient Time: Total time managing care of this patient today ____ minutes.
--- NOTE | 2024-09-02 07:34 | HO.PSYCHPN ---
Subjective Subjective Date of Service: 09/02/24 Reason For Visit: Schizoaffective Subjective Notes: Ontiveros Order and Conditional Voluntary Interim History: Nursing staff reported the patient wants to be called jaleesa, she had been visible in the unit irritable labile denies any symptoms. Her fasting blood sugar at night was 118 but she refused today in the morning. She took her Zyprexa and slept well. On interview the patient denies new symptoms looks confused but redirectable. Mental Status Exam Mental Status Exam Patient Appearance: Appropriate Patient Orientation: Person and Situation Level of Consciousness: Awake and Appropriate Patient Behavior: Guarded Mood Description: Calm and Constricted Affect Description: Withdrawn Patient Cognition Impaired: Yes Ability to Follow Directions: Fair Speech Pattern: Clear Hallucinations: None Delusions: Paranoid Ideation and Ideas of Reference Thought Process: Distracted and Slowed Thinking Thought Content: positive for [place], positive for [place], positive for Poverty of Content and positive for Thought Blocking Judgement: Poor Diagnostics Vital Signs (24Hr): Vital Signs - 24 hr 09/01/24 08:00 09/01/24 09:58 09/01/24 19:35 Temperature 97.0 F 98.7 F Pulse Rate 80 77 Respiratory Rate 18 18 Blood Pressure 145/92 H 137/63 161/77 H Pulse Oximetry 97 96 Oxygen Delivery Method Room Air Room Air Labs 09/02/24 09:08 09/02/24 09:08 Labs: Laboratory Results - last 48 hr 09/01/24 09/01/24 06:56 19:47 POC Glucose 141 H 118 H Medications Medications Current Medications Acetaminophen (Acetaminophen 325 Mg Tablet) 650 mg PO Q6H PRN PRN Reason: Headache/Pain Mild Scale (1-3) Al Hydroxide/Mg Hydroxide (Magnesium Hydrox/Alum Hydrox 30 Ml Oral.Susp) 30 ml PO Q6H PRN PRN Reason: Heartburn/Nausea Docusate Sodium (Docusate Sodium 100 Mg Capsule) 100 mg PO BID PRN PRN Reason: Constipation Gabapentin (Gabapentin 100 Mg Capsule) 200 mg PO BEDTIME FAHAD Last Admin: 09/01/24 20:04 Dose: 200 mg Gabapentin (Gabapentin 100 Mg Capsule) 200 mg PO TID PRN PRN Reason: malissa/anxiety Hydroxyzine HCl (Hydroxyzine Hcl 25 Mg Tablet) 25 mg PO Q6H PRN PRN Reason: Anxiety Ibuprofen (Ibuprofen 800 Mg Tablet) 800 mg PO Q8H PRN PRN Reason: Pain, Severe (Pain Scale 7-10) Last Admin: 09/01/24 06:51 Dose: 800 mg Magnesium Hydroxide (Milk Of Magnesia 30 Ml Oral.Susp) 30 ml PO DAILY PRN PRN Reason: Constipation Magnesium Oxide (Magnesium Oxide 400 Mg Tablet) 400 mg PO BEDTIME FAHAD Last Admin: 09/01/24 20:05 Dose: 400 mg Melatonin (Melatonin 3 Mg Tablet) 3 mg PO BEDTIME MRX1 FAHAD Last Admin: 09/01/24 22:31 Dose: Not Given Nifedipine (Nifedipine Er 30 Mg Tab.Er.24) 30 mg PO DAILY FAHAD; Protocol Last Admin: 09/01/24 09:58 Dose: Not Given Olanzapine (Olanzapine Odt 10 Mg Tab.Rapdis) 10 mg TRANSLINGU BEDTIME FAHAD Last Admin: 09/01/24 20:05 Dose: 10 mg Olanzapine (Olanzapine 5 Mg Tablet) 5 mg PO Q4H PRN PRN Reason: psychosis Olanzapine (Olanzapine 10 Mg Vial) 10 mg IM BEDTIME PRN PRN Reason: refusal of PO Zyprexa Omeprazole (Omeprazole 20 Mg Capsule.Dr) 20 mg PO BID@0630,1630 PRN PRN Reason: GERD Oxybutynin Chloride (Oxybutynin Chloride Er 5 Mg Tab.Er.24) 5 mg PO BEDTIME FAHAD Last Admin: 09/01/24 20:07 Dose: Not Given Senna (Sennosides 8.6 Mg Tablet) 17.2 mg PO BEDTIME PRN PRN Reason: Constipation Allergies Allergies Allergy/AdvReac Type Severity Reaction Status Date / Time nut - unspecified Allergy Unknown Verified 08/25/24 15:31 Assessment & Plan Assessment & Plan (1) Schizoaffective disorder: Status: Acute Code(s): F25.9 - Schizoaffective disorder, unspecified Plan The patient is an elderly female with a past history of schizoaffective disorder, resident of a custodial who was admitted to the emergency room of a local hospital for exacerbation of psychosis. The patient remains grossly psychotic unable to provide any information. Plan 1. Gather collateral information. 2. Continue section 12 B. we have to filed for Section 7 and 8 on August 28 3. We will try to gather her medication reconciliation form. On the meantime she has Zyprexa p.r.n. that it seems that it was effective as per report of the emergency room. 4. Continue 15 minute checks. 5. We got her Ontiveros order and we are going to put IM backup. Reason for continued inpatient stay Substantial Risk for: inability to function, rapid decompensation and med/psych decompensation Time Spent With Patient Time: Total time managing care of this patient today __20__ minutes.
[2024-09-02 08:00] VITALS: BP 132/91; PULSE 83; RESP 16; TEMP 36.7; O2SAT 95
[2024-09-02] MEDS: Ibuprofen 800 MG TABLET PO ×2 (08:38→17:08)
[2024-09-02 08:39] VITALS: BP 132/91
[2024-09-02] MEDS: Gabapentin 100 MG CAPSULE 200 MG PO ×2 (08:39→20:02)
[2024-09-02] MEDS: NIFEdipine ER 30 MG TAB.ER.24 PO (08:39)
[2024-09-02 09:11] LABS: MANUAL DIFF FLAG NO
[2024-09-02 09:14] LABS: Basophils Percent Auto 0.8 % (0-2); Eosinophils Absolute Auto 0.2 X10*3/uL (0.0-0.4); Eosinophils Percent Auto 4.2 % (0-4); Hematocrit 40.1 % (37.0-47.0); Hemoglobin 13.5 g/dl (12.0-16.0); Imm Gran Abs Auto 0.01 X10*3/uL (0.00-0.03); Imm Gran Pct Auto 0.2 % (0.0-0.4); Lymphocytes Absolute Auto 2.2 X10*3/uL (1.2-4.9); Lymphocytes Percent Auto 43.1 % (20-40); Mean Corpuscular HGB Conc 33.7 g/dl (31.0-35.0); Mean Corpuscular Volume 86.1 fL (80.0-98.0); Mean Platelet Volume 9.5 fL (9.4-12.3); Monocytes Absolute Auto 0.5 X10*3/uL (0.1-1.2); Monocytes Percent Auto 9.2 % (2-11); Neutrophils Absolute Auto 2.1 x10*3/uL (2.0-8.3); Neutrophils Percent Auto 42.5 % (45-73); Platelet Count 160 X10*3/uL (160-400); Red Blood Count 4.66 X10*6/uL (4.20-5.50)
[2024-09-02 09:35] LABS: Alanine Aminotransferase 26 U/L (0-31); Albumin Level 3.7 g/dL (3.5-5.0); Alkaline Phosphatase 70 U/L (39-117); Anion Gap 10 (12-20); Aspartate Amino Transferase 26 U/L (5-31); Bilirubin Total 0.3 mg/dL (0.0-1.0); Blood Urea Nitrogen 23 mg/dL (9-16); Calcium 9.4 mg/dL (8.4-10.2); Carbon Dioxide 26 mmol/L (22-29); Chloride 109 mmol/L (96-108); Estimated Glomerular Filt Rate > 60; Glucose Fasting 153 mg/dL (60-99); Potassium 3.7 mmol/L (3.3-5.1); Sodium 141 mmol/L (135-145); Total Protein 6.9 g/dL (6.5-8.0)
[2024-09-02 09:38] LABS: Estimated Average Glucose 111 mg/dL; Hemoglobin A1C 125.4197 umol/L; Hemoglobin A1c % 5.5 % (<6.0); Total Hemoglobin (HGBA1C) 3462.5513 umol/L
[2024-09-02 09:43] LABS: Cholesterol 154 mg/dL (<200); HDL Cholesterol 34 mg/dL (>40); LDL Cholesterol Calculated 92 mg/dL (<100); Triglycerides 143 mg/dL (<150)
[2024-09-02 09:57] LABS: Free T4 (Free Thyroxine) 1.03 ng/dL (0.71-1.85); Thyroid Stimulating Hormone 1.43 uIU/mL (0.32-4.0)
[2024-09-02 10:09] LABS: Folate 7.6 ng/mL (> or = 4.0); Vitamin B12 384 pg/mL (200-900)
[2024-09-02 20:00] VITALS: BP 143/82; PULSE 85; TEMP 36.2; O2SAT 97
[2024-09-02 20:01] LABS: Glucose, Whole Blood 118 mg/dL (60-115)
[2024-09-02] MEDS: Melatonin 3 MG TABLET PO (20:02)
[2024-09-02] MEDS: OLANZapine ODT 10 MG TAB.RAPDIS TRANSLINGU (20:02)
[2024-09-02] MEDS: Magnesium Oxide 400 MG TABLET PO (20:02)
[2024-09-03] MEDS: Ibuprofen 800 MG TABLET PO (09:04)
--- NOTE | 2024-09-03 10:41 | P.PNPSI_ITS ---
Subjective Subjective Date of Service: 09/03/24 Reason For Visit: Schizoaffective Subjective Notes: [facility] Order and Conditional Voluntary Interim History: The nursing staff reported the patient had been cooperative, she had been taking medications and meals she had been responding to internal stimuli. The social worker school reported that she will contact the [facility]dc to get more information. On interview the patient reports that she is feeling fine very pleasant and cooperative but she can be unpredictable at times. Mental Status Exam Mental Status Exam Patient Appearance: Appropriate Patient Orientation: Person and Situation Level of Consciousness: Awake and Appropriate Patient Behavior: Guarded and Passive Mood Description: Withdrawn Affect Description: Constricted Patient Cognition Impaired: Yes Ability to Follow Directions: Good Speech Pattern: Clear Hallucinations: None Delusions: Not Present Thought Process: Distracted and Slowed Thinking Thought Content: positive for [place] and positive for Poverty of Content Judgement: Fair Diagnostics Vital Signs (24Hr): Vital Signs - 24 hr 09/02/24 20:00 Temperature 97.1 F Pulse Rate 85 Blood Pressure 143/82 H Pulse Oximetry 97 Oxygen Delivery Method Room Air Labs 09/02/24 09:08 09/02/24 09:08 Labs: Laboratory Results - last 48 hr 09/01/24 09/02/24 09/02/24 19:47 09:08 19:50 WBC 5.0 RBC 4.66 Hgb 13.5 Hct 40.1 MCV 86.1 MCH 29.0 MCHC 33.7 RDW 14.0 Plt Count 160 MPV 9.5 Immature Gran % (Auto) 0.2 Neut % (Auto) 42.5 L Lymph % (Auto) 43.1 H [place] % (Auto) 9.2 Eos % (Auto) 4.2 H Baso % (Auto) 0.8 Lymph # (Auto) 2.2 [place] # (Auto) 0.5 Eos # (Auto) 0.2 Baso # (Auto) 0.0 Abs Immat Gran (auto) 0.01 Absolute Neuts (auto) 2.1 Absolute Nucleated RBC 0.000 Nucleated RBC % (auto) 0.0 Sodium 141 Potassium 3.7 Chloride 109 H Carbon Dioxide 26 Anion Gap 10 L BUN 23 H Creatinine 0.72 Estim Creat Clear Calc TNP Estimated GFR > 60 POC Glucose 118 H 118 H Fasting Glucose 153 H Estimat Average Glucose 111 Hemoglobin A1c % 5.5 Calcium 9.4 Total Bilirubin 0.3 AST 26 ALT 26 Alkaline Phosphatase 70 Total Protein 6.9 Albumin 3.7 Triglycerides 143 Cholesterol 154 LDL Cholesterol, Calc 92 HDL Cholesterol 34 L Vitamin B12 384 Folate 7.6 TSH 1.43 Free T4 1.03 Medications Medications Current Medications Acetaminophen (Acetaminophen 325 Mg Tablet) 650 mg PO Q6H PRN PRN Reason: Headache/Pain Mild Scale (1-3) Al Hydroxide/Mg Hydroxide (Magnesium Hydrox/Alum Hydrox 30 Ml Oral.Susp) 30 ml PO Q6H PRN PRN Reason: Heartburn/Nausea Docusate Sodium (Docusate Sodium 100 Mg Capsule) 100 mg PO BID PRN PRN Reason: Constipation Gabapentin (Gabapentin 100 Mg Capsule) 200 mg PO BEDTIME FAHAD Last Admin: 09/02/24 20:02 Dose: 200 mg Gabapentin (Gabapentin 100 Mg Capsule) 200 mg PO TID PRN PRN Reason: malissa/anxiety Last Admin: 09/02/24 08:39 Dose: 200 mg Hydroxyzine HCl (Hydroxyzine Hcl 25 Mg Tablet) 25 mg PO Q6H PRN PRN Reason: Anxiety Ibuprofen (Ibuprofen 800 Mg Tablet) 800 mg PO Q8H PRN PRN Reason: Pain, Severe (Pain Scale 7-10) Last Admin: 09/03/24 09:04 Dose: 800 mg Magnesium Hydroxide (Milk Of Magnesia 30 Ml Oral.Susp) 30 ml PO DAILY PRN PRN Reason: Constipation Magnesium Oxide (Magnesium Oxide 400 Mg Tablet) 400 mg PO BEDTIME [facility] Last Admin: 09/02/24 20:02 Dose: 400 mg Melatonin (Melatonin 3 Mg Tablet) 3 mg PO BEDTIME MRX1 [facility] Last Admin: 09/02/24 22:59 Dose: Not Given Nifedipine (Nifedipine Er 30 Mg Tab.Er.24) 30 mg PO DAILY FAHAD; Protocol Last Admin: 09/03/24 08:34 Dose: Not Given Olanzapine (Olanzapine Odt 10 Mg Tab.Rapdis) 10 mg TRANSLINGU BEDTIME FAHAD Last Admin: 09/02/24 20:02 Dose: 10 mg Olanzapine (Olanzapine 5 Mg Tablet) 5 mg PO Q4H PRN PRN Reason: psychosis Olanzapine (Olanzapine 10 Mg Vial) 10 mg IM BEDTIME PRN PRN Reason: refusal of PO Zyprexa Omeprazole (Omeprazole 20 Mg Capsule.Dr) 20 mg PO BID@0630,1630 PRN PRN Reason: GERD Oxybutynin Chloride (Oxybutynin Chloride Er 5 Mg Tab.Er.24) 5 mg PO BEDTIME FAHAD Last Admin: 09/02/24 20:07 Dose: Not Given Senna (Sennosides 8.6 Mg Tablet) 17.2 mg PO BEDTIME PRN PRN Reason: Constipation Allergies Allergies Allergy/AdvReac Type Severity Reaction Status Date / Time nut - unspecified Allergy Unknown Verified 08/25/24 15:31 Assessment & Plan Assessment & Plan (1) Schizoaffective disorder: Status: Acute Code(s): F25.9 - Schizoaffective disorder, unspecified Plan The patient is an elderly female with a past history of schizoaffective disorder, resident of a fdc who was admitted to the emergency room of a local hospital for exacerbation of psychosis. The patient remains grossly psychotic unable to provide any information. Plan 1. Gather collateral information. 2. Continue section 12 B. we have to filed for Section 7 and 8 on August 28 3. We will try to gather her medication reconciliation form. On the meantime she has Zapoorvaa p.r.n. that it seems that it was effective as per report of the emergency room. 4. Continue 15 minute checks. 5. We got her Ontiver[facility] order and we are going to put IM backup. Reason for continued inpatient stay Substantial Risk for: inability to function, rapid decompensation and med/psych decompensation Time Spent With Patient Time: Total time managing care of this patient today _20___ minutes.
[2024-09-03 20:00] VITALS: PULSE 94; RESP 16; TEMP 36.9; O2SAT 96
[2024-09-03] MEDS: OLANZapine ODT 10 MG TAB.RAPDIS TRANSLINGU (20:24)
[2024-09-03] MEDS: Magnesium Oxide 400 MG TABLET PO (20:24)
[2024-09-03] MEDS: Gabapentin 100 MG CAPSULE 200 MG PO (20:25)
[2024-09-03 20:35] LABS: Glucose, Whole Blood 153 mg/dL (60-115)
--- NOTE | 2024-09-04 07:50 | P.PNPSI_ITS ---
Subjective Subjective Date of Service: 09/04/24 Reason For Visit: Schizoaffective Subjective Notes: [place] Order, Section 7 and Section 8 Interim History: The nursing staff reported the patient had been more pleasant in the afternoon. His fasting blood sugars a night was 133 and today in the morning she refused it. She slept 8 hours. On interview the patient denies new symptoms she states that she is feeling much better. Mental Status Exam Mental Status Exam Patient Appearance: Appropriate Patient Orientation: Person and Situation Level of Consciousness: Awake and Appropriate Patient Behavior: Guarded and Passive Mood Description: Withdrawn Affect Description: Constricted Patient Cognition Impaired: Yes Ability to Follow Directions: Fair Speech Pattern: Clear Hallucinations: None Delusions: Paranoid Ideation and Ideas of Reference Thought Process: Distracted and Slowed Thinking Thought Content: positive for [place] and positive for Poverty of Content Judgement: Fair Diagnostics Vital Signs (24Hr): Vital Signs - 24 hr 09/03/24 20:00 Temperature 98.4 F Pulse Rate 94 Respiratory Rate 16 Pulse Oximetry 96 Oxygen Delivery Method Room Air Labs 09/02/24 09:08 09/02/24 09:08 Labs: Laboratory Results - last 48 hr 09/02/24 09/02/24 09/03/24 09:08 19:50 20:23 WBC 5.0 RBC 4.66 Hgb 13.5 Hct 40.1 MCV 86.1 MCH 29.0 MCHC 33.7 RDW 14.0 Plt Count 160 MPV 9.5 Immature Gran % (Auto) 0.2 Neut % (Auto) 42.5 L Lymph % (Auto) 43.1 H [place] % (Auto) 9.2 Eos % (Auto) 4.2 H Baso % (Auto) 0.8 Lymph # (Auto) 2.2 [place] # (Auto) 0.5 Eos # (Auto) 0.2 Baso # (Auto) 0.0 Abs Immat Gran (auto) 0.01 Absolute Neuts (auto) 2.1 Absolute Nucleated RBC 0.000 Nucleated RBC % (auto) 0.0 Sodium 141 Potassium 3.7 Chloride 109 H Carbon Dioxide 26 Anion Gap 10 L BUN 23 H Creatinine 0.72 Estim Creat Clear Calc TNP Estimated GFR > 60 POC Glucose 118 H 153 H Fasting Glucose 153 H Estimat Average Glucose 111 Hemoglobin A1c % 5.5 Calcium 9.4 Total Bilirubin 0.3 AST 26 ALT 26 Alkaline Phosphatase 70 Total Protein 6.9 Albumin 3.7 Triglycerides 143 Cholesterol 154 LDL Cholesterol, Calc 92 HDL Cholesterol 34 L Vitamin B12 384 Folate 7.6 TSH 1.43 Free T4 1.03 Medications Medications Current Medications Acetaminophen (Acetaminophen 325 Mg Tablet) 650 mg PO Q6H PRN PRN Reason: Headache/Pain Mild Scale (1-3) Al Hydroxide/Mg Hydroxide (Magnesium Hydrox/Alum Hydrox 30 Ml Oral.Susp) 30 ml PO Q6H PRN PRN Reason: Heartburn/Nausea Docusate Sodium (Docusate Sodium 100 Mg Capsule) 100 mg PO BID PRN PRN Reason: Constipation Gabapentin (Gabapentin 100 Mg Capsule) 200 mg PO BEDTIME FAHAD Last Admin: 09/03/24 20:25 Dose: 200 mg Gabapentin (Gabapentin 100 Mg Capsule) 200 mg PO TID PRN PRN Reason: malissa/anxiety Last Admin: 09/02/24 08:39 Dose: 200 mg Hydroxyzine HCl (Hydroxyzine Hcl 25 Mg Tablet) 25 mg PO Q6H PRN PRN Reason: Anxiety Ibuprofen (Ibuprofen 800 Mg Tablet) 800 mg PO Q8H PRN PRN Reason: Pain, Severe (Pain Scale 7-10) Last Admin: 09/03/24 09:04 Dose: 800 mg Magnesium Hydroxide (Milk Of Magnesia 30 Ml Oral.Susp) 30 ml PO DAILY PRN PRN Reason: Constipation Magnesium Oxide (Magnesium Oxide 400 Mg Tablet) 400 mg PO BEDTIME FAHAD Last Admin: 09/03/24 20:24 Dose: 400 mg Melatonin (Melatonin 3 Mg Tablet) 3 mg PO BEDTIME MRX1 FAHAD Last Admin: 09/03/24 22:25 Dose: Not Given Nifedipine (Nifedipine Er 30 Mg Tab.Er.24) 30 mg PO DAILY FAHAD; Protocol Last Admin: 09/03/24 08:34 Dose: Not Given Olanzapine (Olanzapine Odt 10 Mg Tab.Rapdis) 10 mg TRANSLINGU BEDTIME FAHAD Last Admin: 09/03/24 20:24 Dose: 10 mg Olanzapine (Olanzapine 5 Mg Tablet) 5 mg PO Q4H PRN PRN Reason: psychosis Olanzapine (Olanzapine 10 Mg Vial) 10 mg IM BEDTIME PRN PRN Reason: refusal of PO Zyprexa Omeprazole (Omeprazole 20 Mg Capsule.Dr) 20 mg PO BID@0630,1630 PRN PRN Reason: GERD Oxybutynin Chloride (Oxybutynin Chloride Er 5 Mg Tab.Er.24) 5 mg PO BEDTIME FAHAD Last Admin: 09/03/24 21:17 Dose: Not Given Senna (Sennosides 8.6 Mg Tablet) 17.2 mg PO BEDTIME PRN PRN Reason: Constipation Allergies Allergies Allergy/AdvReac Type Severity Reaction Status Date / Time nut - unspecified Allergy Unknown Verified 08/25/24 15:31 Assessment & Plan Assessment & Plan (1) Schizoaffective disorder: Status: Acute Code(s): F25.9 - Schizoaffective disorder, unspecified Plan The patient is an elderly female with a past history of schizoaffective disorder, resident [facility] a [facility] who was admitted to the emergency room of a local hospital for exacerbation of psychosis. The patient remains grossly psychotic unable to provide any information on admission. Plan 1. Gather collateral information. 2. Continue section 12 B. we have to filed for Section 7 and 8 on August 28 3. We will try to gather her medication reconciliation form. On the meantime she has Zyprexa p.r.n. that it seems that it was effective as per report of the emergency room. 4. Continue 15 minute checks. 5. We got her Ontiveros order and we are going to put IM backup. So far the patient had been compliant with psychiatric treatment. Reason for continued inpatient stay Substantial Risk for: inability to function, rapid decompensation and med/psych decompensation Time Spent With Patient Time: Total time managing care of this patient today _20___ minutes.
[2024-09-04] MEDS: Ibuprofen 800 MG TABLET PO ×2 (09:00→20:20)
[2024-09-04 20:00] VITALS: BP 172/82; PULSE 84; RESP 18; TEMP 36.6; O2SAT 94
[2024-09-04] MEDS: Gabapentin 100 MG CAPSULE 200 MG PO (20:20)
[2024-09-04] MEDS: Magnesium Oxide 400 MG TABLET PO (20:20)
[2024-09-04] MEDS: Magnesium Hydrox/Alum Hydrox 30 ML ORAL.SUSP PO (20:21)
[2024-09-04] MEDS: OLANZapine ODT 10 MG TAB.RAPDIS 15 MG TRANSLINGU (20:21)
[2024-09-04] MEDS: Melatonin 3 MG TABLET PO ×2 (22:53)
[2024-09-05] MEDS: Ibuprofen 800 MG TABLET PO ×2 (06:45→20:02)
[2024-09-05 08:00] VITALS: RESP 16
--- NOTE | 2024-09-05 11:53 | HO.PSYCHPN ---
Subjective Subjective Date of Service: 09/05/24 Reason For Visit: Schizoaffective Subjective Notes: Section 7, Section 8 and Section 12B Interim History: Nursing staff reported the patient is less irritable, she slept 8 hours. On interview the patient denies new symptoms. Today we were skilled to have the hearing for the Section 7 and 8 but we are going to continue it and most likely discharge her early next week. Mental Status Exam Mental Status Exam Patient Appearance: Well Grooomed and Appropriate Patient Orientation: Person and Situation Level of Consciousness: Awake and Appropriate Patient Behavior: Guarded and Passive Mood Description: Withdrawn Affect Description: Constricted Patient Cognition Impaired: Yes Ability to Follow Directions: Good Speech Pattern: Clear Hallucinations: None Delusions: Paranoid Ideation and Ideas of Reference Thought Process: Distracted and Slowed Thinking Thought Content: positive for [place] and positive for Poverty of Content Judgement: Poor Diagnostics Vital Signs (24Hr): Vital Signs - 24 hr 09/04/24 20:00 09/05/24 08:00 Temperature 97.8 F Pulse Rate 84 Respiratory Rate 18 16 Blood Pressure 172/82 H Pulse Oximetry 94 Oxygen Delivery Method Room Air Labs 09/02/24 09:08 09/02/24 09:08 Labs: Laboratory Results - last 48 hr 09/03/24 20:23 POC Glucose 153 H Medications Medications Current Medications Acetaminophen (Acetaminophen 325 Mg Tablet) 650 mg PO Q6H PRN PRN Reason: Headache/Pain Mild Scale (1-3) Al Hydroxide/Mg Hydroxide (Magnesium Hydrox/Alum Hydrox 30 Ml Oral.Susp) 30 ml PO Q6H PRN PRN Reason: Heartburn/Nausea Last Admin: 09/04/24 20:21 Dose: 30 ml Docusate Sodium (Docusate Sodium 100 Mg Capsule) 100 mg PO BID PRN PRN Reason: Constipation Gabapentin (Gabapentin 100 Mg Capsule) 200 mg PO BEDTIME FAHAD Last Admin: 09/04/24 20:20 Dose: 200 mg Gabapentin (Gabapentin 100 Mg Capsule) 200 mg PO TID PRN PRN Reason: malissa/anxiety Last Admin: 09/02/24 08:39 Dose: 200 mg Hydroxyzine HCl (Hydroxyzine Hcl 25 Mg Tablet) 25 mg PO Q6H PRN PRN Reason: Anxiety Ibuprofen (Ibuprofen 800 Mg Tablet) 800 mg PO Q8H PRN PRN Reason: Pain, Severe (Pain Scale 7-10) Last Admin: 09/05/24 06:45 Dose: 800 mg Magnesium Hydroxide (Milk Of Magnesia 30 Ml Oral.Susp) 30 ml PO DAILY PRN PRN Reason: Constipation Magnesium Oxide (Magnesium Oxide 400 Mg Tablet) 400 mg PO BEDTIME FAHAD Last Admin: 09/04/24 20:20 Dose: 400 mg Melatonin (Melatonin 3 Mg Tablet) 3 mg PO BEDTIME MRX1 FAHAD Last Admin: 09/04/24 22:53 Dose: 3 mg Nifedipine (Nifedipine Er 30 Mg Tab.Er.24) 30 mg PO DAILY FAHAD; Protocol Last Admin: 09/05/24 10:03 Dose: Not Given Olanzapine (Olanzapine 5 Mg Tablet) 5 mg PO Q4H PRN PRN Reason: psychosis Olanzapine (Olanzapine 10 Mg Vial) 10 mg IM BEDTIME PRN PRN Reason: refusal of PO Zyprexa Olanzapine (Olanzapine Odt 10 Mg Tab.Rapdis) 15 mg TRANSLINGU BEDTIME FAHAD Last Admin: 09/04/24 20:21 Dose: 15 mg Omeprazole (Omeprazole 20 Mg Capsule.Dr) 20 mg PO BID@0630,1630 PRN PRN Reason: GERD Oxybutynin Chloride (Oxybutynin Chloride Er 5 Mg Tab.Er.24) 5 mg PO BEDTIME FAHAD Last Admin: 09/04/24 20:24 Dose: Not Given Senna (Sennosides 8.6 Mg Tablet) 17.2 mg PO BEDTIME PRN PRN Reason: Constipation Allergies Allergies Allergy/AdvReac Type Severity Reaction Status Date / Time nut - unspecified Allergy Unknown Verified 08/25/24 15:31 Assessment & Plan Assessment & Plan (1) Schizoaffective disorder: Status: Acute Code(s): F25.9 - Schizoaffective disorder, unspecified Plan The patient is an elderly female with a past history of schizoaffective disorder, resident of a senior care who was admitted to the emergency room of a local hospital for exacerbation of psychosis. The patient remains grossly psychotic unable to provide any information on admission. Plan 1. Gather collateral information. 2. Continue section 12 B. we have to filed for Section 7 and 8 on August 28, the case was continued for next week in the hopes of discharging her early next week. 3. We will try to gather her medication reconciliation form. On the meantime she has Christa p.r.n. that it seems that it was effective as per report of the emergency room. 4. Continue 15 minute checks. 5. We got her Ontiveros order and we are going to put IM backup. So far the patient had been compliant with psychiatric treatment. 6. Zyprexa was increased up to 15 mg p.o. q.h.s. on September 03. She started responding and she looks much better. Reason for continued inpatient stay Substantial Risk for: inability to function, rapid decompensation and med/psych decompensation Time Spent With Patient Time: Total time managing care of this patient today __20__ minutes.
[2024-09-05] MEDS: Gabapentin 100 MG CAPSULE 200 MG PO (19:58)
[2024-09-05] MEDS: OLANZapine ODT 10 MG TAB.RAPDIS 15 MG TRANSLINGU (19:58)
[2024-09-05] MEDS: Magnesium Oxide 400 MG TABLET PO (19:58)
[2024-09-05] MEDS: Magnesium Hydrox/Alum Hydrox 30 ML ORAL.SUSP PO (19:58)
[2024-09-05 20:00] VITALS: BP 165/84; PULSE 93; RESP 18; TEMP 36.7; O2SAT 96
[2024-09-05 20:06] LABS: Glucose, Whole Blood 147 mg/dL (60-115)
[2024-09-05] MEDS: Melatonin 3 MG TABLET PO (23:55)
--- NOTE | 2024-09-06 07:38 | HO.PSYCHPN ---
Subjective Subjective Date of Service: 09/06/24 Reason For Visit: Schizoaffective Subjective Notes: Section 7, Section 8 and Section 12B Interim History: The nursing staff reported the patient had been compliant with treatment. No changes in her mental status she was seen in the common areas. On interview the patient reports that she is feeling better, we are expecting to discharge her next Monday. Chronic psychotic irritable at times. Mental Status Exam Mental Status Exam Patient Appearance: Appropriate Patient Orientation: Person and Situation Level of Consciousness: Awake and Appropriate Patient Behavior: Guarded and Passive Mood Description: Withdrawn Affect Description: Constricted Patient Cognition Impaired: Yes Ability to Follow Directions: Good Speech Pattern: Clear Hallucinations: None Delusions: Ideas of Reference Thought Process: Distracted and Slowed Thinking Thought Content: positive for [place] and positive for Poverty of Content Judgement: Fair Diagnostics Vital Signs (24Hr): Vital Signs - 24 hr 09/05/24 08:00 09/05/24 20:00 Temperature 98.1 F Pulse Rate 93 Respiratory Rate 16 18 Blood Pressure 165/84 H Pulse Oximetry 96 Oxygen Delivery Method Room Air Labs 09/02/24 09:08 09/02/24 09:08 Labs: Laboratory Results - last 48 hr 09/05/24 20:01 POC Glucose 147 H Medications Medications Current Medications Acetaminophen (Acetaminophen 325 Mg Tablet) 650 mg PO Q6H PRN PRN Reason: Headache/Pain Mild Scale (1-3) Al Hydroxide/Mg Hydroxide (Magnesium Hydrox/Alum Hydrox 30 Ml Oral.Susp) 30 ml PO Q6H PRN PRN Reason: Heartburn/Nausea Last Admin: 09/05/24 19:58 Dose: 30 ml Docusate Sodium (Docusate Sodium 100 Mg Capsule) 100 mg PO BID PRN PRN Reason: Constipation Gabapentin (Gabapentin 100 Mg Capsule) 200 mg PO BEDTIME [facility] Last Admin: 09/05/24 19:58 Dose: 200 mg Gabapentin (Gabapentin 100 Mg Capsule) 200 mg PO TID PRN PRN Reason: malissa/anxiety Last Admin: 09/02/24 08:39 Dose: 200 mg Hydroxyzine HCl (Hydroxyzine Hcl 25 Mg Tablet) 25 mg PO Q6H PRN PRN Reason: Anxiety Ibuprofen (Ibuprofen 800 Mg Tablet) 800 mg PO Q8H PRN PRN Reason: Pain, Severe (Pain Scale 7-10) Last Admin: 09/05/24 20:02 Dose: 800 mg Magnesium Hydroxide (Milk Of Magnesia 30 Ml Oral.Susp) 30 ml PO DAILY PRN PRN Reason: Constipation Magnesium Oxide (Magnesium Oxide 400 Mg Tablet) 400 mg PO BEDTIME [facility] Last Admin: 09/05/24 19:58 Dose: 400 mg Melatonin (Melatonin 3 Mg Tablet) 3 mg PO BEDTIME MRX1 [facility] Last Admin: 09/05/24 23:55 Dose: 3 mg Nifedipine (Nifedipine Er 30 Mg Tab.Er.24) 30 mg PO DAILY [facility]; Protocol Last Admin: 09/05/24 10:03 Dose: Not Given Olanzapine (Olanzapine 5 Mg Tablet) 5 mg PO Q4H PRN PRN Reason: psychosis Olanzapine (Olanzapine 10 Mg Vial) 10 mg IM BEDTIME PRN PRN Reason: refusal of PO Zyprexa Olanzapine (Olanzapine Odt 10 Mg Tab.Rapdis) 15 mg TRANSLINGU BEDTIME [facility] Last Admin: 09/05/24 19:58 Dose: 15 mg Omeprazole (Omeprazole 20 Mg Capsule.Dr) 20 mg PO BID@0630,1630 PRN PRN Reason: GERD Oxybutynin Chloride (Oxybutynin Chloride Er 5 Mg Tab.Er.24) 5 mg PO BEDTIME [facility] Last Admin: 09/05/24 20:00 Dose: Not Given Senna (Sennosides 8.6 Mg Tablet) 17.2 mg PO BEDTIME PRN PRN Reason: Constipation Allergies Allergies Allergy/AdvReac Type Severity Reaction Status Date / Time nut - unspecified Allergy Unknown Verified 08/25/24 15:31 Assessment & Plan Assessment & Plan (1) Schizoaffective disorder: Status: Acute Code(s): F25.9 - Schizoaffective disorder, unspecified Plan The patient is an elderly female with a past history of schizoaffective disorder, resident of a custodial who was admitted to the emergency room of a local hospital for exacerbation of psychosis. The patient remains grossly psychotic unable to provide any information on admission. Plan 1. Gather collateral information. 2. Continue section 12 B. we have to filed for Section 7 and 8 on August 28, the case was continued for next week in the hopes of discharging her early next week. 3. We will try to gather her medication reconciliation form. On the meantime she has Zjamesrexa p.r.n. that it seems that it was effective as per report of the emergency room. 4. Continue 15 minute checks. 5. We got her Ontiveros order and we are going to put IM backup. So far the patient had been compliant with psychiatric treatment. 6. Zyprexa was increased up to 15 mg p.o. q.h.s. on September 03. She started responding and she looks much better. 7. We are expecting discharge next Monday to her custodial. Reason for continued inpatient stay Substantial Risk for: inability to function, rapid decompensation and med/psych decompensation Time Spent With Patient Time: Total time managing care of this patient today _20___ minutes.
[2024-09-06 09:36] VITALS: BP 183/86; PULSE 90; RESP 20; TEMP 36.6; O2SAT 97
[2024-09-06] MEDS: OLANZapine 5 MG TABLET PO (09:40)
[2024-09-06] MEDS: Ibuprofen 800 MG TABLET PO ×2 (09:40→20:22)
[2024-09-06] MEDS: NIFEdipine ER 30 MG TAB.ER.24 PO (09:41)
[2024-09-06] MEDS: Magnesium Oxide 400 MG TABLET PO ×2 (09:41→20:19)
[2024-09-06] MEDS: Magnesium Hydrox/Alum Hydrox 30 ML ORAL.SUSP PO (20:18)
[2024-09-06] MEDS: OLANZapine 10 MG VIAL IM (20:30)
[2024-09-06] MEDS: Gabapentin 100 MG CAPSULE 200 MG PO (20:36)
--- NOTE | 2024-09-07 07:59 | P.PNPSI_ITS ---
Subjective Subjective Date of Service: 09/07/24 Reason For Visit: Schizoaffective Subjective Notes: Section 7 Interim History: did require IM medication last night. Believes that she is here because she murdered somebody. With tag writer she is very guarded. Stated she did not know what her name was and made a comment that she committed murder. Was very clear she did not want to interact with tag writer. She clearly did know what her name was when she responded when other staff called her by this. Interaction did appear to be driven by paranoia and psychosis. Medication Compliance: Yes ( Court ordered) Side effects from medications: No Attending Groups: No Review of Systems Acute medical concerns: No Review of Systems Review of Systems Yes Unobtainable due to mental status Mental Status Exam Mental Status Exam Narrative: in wheelchair. Very irritable with tag writer and guarded. Stated she does not want know what her name was, however did respond when called by her name. Interaction did appear driven by psychosis and paranoia Diagnostics Vital Signs (24Hr): Vital Signs - 24 hr 09/06/24 09:36 Temperature 97.8 F Pulse Rate 90 Respiratory Rate 20 Blood Pressure 183/86 H Pulse Oximetry 97 Oxygen Delivery Method Room Air Labs 09/02/24 09:08 09/02/24 09:08 Labs: Laboratory Results - last 48 hr 09/05/24 20:01 POC Glucose 147 H Medications Medications Current Medications Acetaminophen (Acetaminophen 325 Mg Tablet) 650 mg PO Q6H PRN PRN Reason: Headache/Pain Mild Scale (1-3) Al Hydroxide/Mg Hydroxide (Magnesium Hydrox/Alum Hydrox 30 Ml Oral.Susp) 30 ml PO Q6H PRN PRN Reason: Heartburn/Nausea Last Admin: 09/06/24 20:18 Dose: 30 ml Docusate Sodium (Docusate Sodium 100 Mg Capsule) 100 mg PO BID PRN PRN Reason: Constipation Gabapentin (Gabapentin 100 Mg Capsule) 200 mg PO BEDTIME [facility] Last Admin: 09/06/24 20:36 Dose: 200 mg Gabapentin (Gabapentin 100 Mg Capsule) 200 mg PO TID PRN PRN Reason: malissa/anxiety Last Admin: 09/02/24 08:39 Dose: 200 mg Hydroxyzine HCl (Hydroxyzine Hcl 25 Mg Tablet) 25 mg PO Q6H PRN PRN Reason: Anxiety Ibuprofen (Ibuprofen 800 Mg Tablet) 800 mg PO Q8H PRN PRN Reason: Pain, Severe (Pain Scale 7-10) Last Admin: 09/06/24 20:22 Dose: 800 mg Magnesium Hydroxide (Milk Of Magnesia 30 Ml Oral.Susp) 30 ml PO DAILY PRN PRN Reason: Constipation Magnesium Oxide (Magnesium Oxide 400 Mg Tablet) 400 mg PO BID [facility] Last Admin: 09/06/24 20:19 Dose: 400 mg Melatonin (Melatonin 3 Mg Tablet) 3 mg PO BEDTIME MRX1 [facility] Last Admin: 09/06/24 22:15 Dose: Not Given Nifedipine (Nifedipine Er 30 Mg Tab.Er.24) 30 mg PO DAILY [facility]; Protocol Last Admin: 09/06/24 09:41 Dose: 30 mg Olanzapine (Olanzapine 5 Mg Tablet) 5 mg PO Q4H PRN PRN Reason: psychosis Last Admin: 09/06/24 09:40 Dose: 5 mg Olanzapine (Olanzapine 10 Mg Vial) 10 mg IM BEDTIME PRN PRN Reason: refusal of PO Zyprexa Last Admin: 09/06/24 20:30 Dose: 10 mg Olanzapine (Olanzapine Odt 10 Mg Tab.Rapdis) 15 mg TRANSLINGU BEDTIME [facility] Last Admin: 09/06/24 20:38 Dose: Not Given Omeprazole (Omeprazole 20 Mg Capsule.Dr) 20 mg PO BID@0630,1630 PRN PRN Reason: GERD Oxybutynin Chloride (Oxybutynin Chloride Er 5 Mg Tab.Er.24) 5 mg PO BEDTIME [facility] Last Admin: 09/06/24 20:39 Dose: Not Given Senna (Sennosides 8.6 Mg Tablet) 17.2 mg PO BEDTIME PRN PRN Reason: Constipation Allergies Allergies Allergy/AdvReac Type Severity Reaction Status Date / Time nut - unspecified Allergy Unknown Verified 08/25/24 15:31 Assessment & Plan Assessment & Plan (1) Schizoaffective disorder: Status: Acute Code(s): F25.9 - Schizoaffective disorder, unspecified Plan The patient is an elderly female with a past history of schizoaffective disorder, resident of a assisted who was admitted to the emergency room of a local hospital for exacerbation of psychosis. The patient remains grossly psychotic unable to provide any information on admission. Plan 1. Gather collateral information. 2. Continue section 12 B. we have to filed for Section 7 and 8 on August 28, the case was continued for next week in the hopes of discharging her early next week. 3. We will try to gather her medication reconciliation form. On the meantime she has Zyprexa p.r.n. that it seems that it was effective as per report of the emergency room. 4. Continue 15 minute checks. 5. We got her Ontiveros order and we are going to put IM backup. So far the patient had been compliant with psychiatric treatment. 6. Zyprexa was increased up to 15 mg p.o. q.h.s. on September 03. She started responding and she looks much better. 7. We are expecting discharge next Monday to her assisted. 09/07/2024: Continue medications In team working on appropriate disposition plan to ensure her ability to care for self with appropriate supports. Reason for continued inpatient stay Substantial Risk for: inability to function and rapid decompensation Time Spent With Patient Time: Total time managing care of this patient today ____ minutes.
[2024-09-07] MEDS: Ibuprofen 800 MG TABLET PO ×2 (14:35→20:16)
[2024-09-07 20:00] VITALS: BP 141/78; PULSE 87; RESP 16; TEMP 36.4; O2SAT 98
[2024-09-07] MEDS: Gabapentin 100 MG CAPSULE 200 MG PO (20:17)
[2024-09-07] MEDS: Magnesium Oxide 400 MG TABLET PO (20:18)
[2024-09-07] MEDS: OLANZapine 10 MG VIAL IM (20:27)
[2024-09-07 22:58] LABS: Glucose, Whole Blood 134 mg/dL (60-115)
--- NOTE | 2024-09-08 10:06 | P.PNPSI_ITS ---
Subjective Subjective Date of Service: 09/08/24 Reason For Visit: Schizoaffective Interim History: Requesting IM medications ie prefers same. Still believes that she is here because she murdered somebody and telling patients about her [place] [facility] status . With group underwriter she is very guarded and would not talk I wont say anything . Interaction did appear to be driven by paranoia and psychosis. Medication Compliance: Intermittent Side effects from medications: No Attending Groups: Intermittent Review of Systems Acute medical concerns: No Review of Systems Review of Systems Yes Unobtainable due to mental status Mental Status Exam Mental Status Exam Narrative: in wheelchair. Very irritable with group underwriter and guarded. Stated she would not talk with group underwriter. Over heard talking about her [place] [facility] status with other patients. No evidence of SI. Insight and judgment poor. Diagnostics Vital Signs (24Hr): Vital Signs - 24 hr 09/07/24 20:00 Temperature 97.5 F Pulse Rate 87 Respiratory Rate 16 Blood Pressure 141/78 H Pulse Oximetry 98 Oxygen Delivery Method Room Air Labs 09/02/24 09:08 09/02/24 09:08 Labs: Laboratory Results - last 48 hr 09/07/24 20:25 POC Glucose 134 H Medications Medications Current Medications Acetaminophen (Acetaminophen 325 Mg Tablet) 650 mg PO Q6H PRN PRN Reason: Headache/Pain Mild Scale (1-3) Al Hydroxide/Mg Hydroxide (Magnesium Hydrox/Alum Hydrox 30 Ml Oral.Susp) 30 ml PO Q6H PRN PRN Reason: Heartburn/Nausea Last Admin: 09/06/24 20:18 Dose: 30 ml Docusate Sodium (Docusate Sodium 100 Mg Capsule) 100 mg PO BID PRN PRN Reason: Constipation Gabapentin (Gabapentin 100 Mg Capsule) 200 mg PO BEDTIME [facility] Last Admin: 09/07/24 20:17 Dose: 200 mg Gabapentin (Gabapentin 100 Mg Capsule) 200 mg PO TID PRN PRN Reason: malissa/anxiety Last Admin: 09/02/24 08:39 Dose: 200 mg Hydroxyzine HCl (Hydroxyzine Hcl 25 Mg Tablet) 25 mg PO Q6H PRN PRN Reason: Anxiety Ibuprofen (Ibuprofen 800 Mg Tablet) 800 mg PO Q8H PRN PRN Reason: Pain, Severe (Pain Scale 7-10) Last Admin: 09/07/24 20:16 Dose: 800 mg Magnesium Hydroxide (Milk Of Magnesia 30 Ml Oral.Susp) 30 ml PO DAILY PRN PRN Reason: Constipation Magnesium Oxide (Magnesium Oxide 400 Mg Tablet) 400 mg PO BID [facility] Last Admin: 09/08/24 08:24 Dose: Not Given Melatonin (Melatonin 3 Mg Tablet) 3 mg PO BEDTIME MRX1 [facility] Last Admin: 09/07/24 22:00 Dose: Not Given Nifedipine (Nifedipine Er 30 Mg Tab.Er.24) 30 mg PO DAILY [facility]; Protocol Last Admin: 09/08/24 08:24 Dose: Not Given Olanzapine (Olanzapine 5 Mg Tablet) 5 mg PO Q4H PRN PRN Reason: psychosis Last Admin: 09/06/24 09:40 Dose: 5 mg Olanzapine (Olanzapine 10 Mg Vial) 10 mg IM BEDTIME PRN PRN Reason: refusal of PO Zyprexa Last Admin: 09/07/24 20:27 Dose: 10 mg Olanzapine (Olanzapine Odt 10 Mg Tab.Rapdis) 15 mg TRANSLINGU BEDTIME [facility] Last Admin: 09/07/24 20:30 Dose: Not Given Omeprazole (Omeprazole 20 Mg Capsule.Dr) 20 mg PO BID@0630,1630 PRN PRN Reason: GERD Oxybutynin Chloride (Oxybutynin Chloride Er 5 Mg Tab.Er.24) 5 mg PO BEDTIME [facility] Last Admin: 09/07/24 20:21 Dose: Not Given Senna (Sennosides 8.6 Mg Tablet) 17.2 mg PO BEDTIME PRN PRN Reason: Constipation Allergies Allergies Allergy/AdvReac Type Severity Reaction Status Date / Time nut - unspecified Allergy Unknown Verified 08/25/24 15:31 Assessment & Plan Assessment & Plan (1) Schizoaffective disorder: Status: Acute Code(s): F25.9 - Schizoaffective disorder, unspecified Plan The patient is an elderly female with a past history of schizoaffective disorder, resident of a [place] [facility] who was admitted to the emergency room of a local hospital for exacerbation of psychosis. The patient remains grossly psychotic unable to provide any information on admission. Plan 1. Gather collateral information. 2. Continue section 12 B. we have to filed for Section 7 and 8 on August 28, the case was continued for next week in the hopes of discharging her early next week. 3. We will try to gather her medication reconciliation form. On the meantime she has Zyprexa p.r.n. that it seems that it was effective as per report of the emergency room. 4. Continue 15 minute checks. 5. We got her Ontiveros order and we are going to put IM backup. So far the patient had been compliant with psychiatric treatment. 6. Zyprexa was increased up to 15 mg p.o. q.h.s. on September 03. She started responding and she looks much better. 7. We are expecting discharge next Monday to her [place] [facility]. 09/08/2024: Continue medications and team working on appropriate disposition plan to ensure her ability to care for self with appropriate supports. Reason for continued inpatient stay Substantial Risk for: inability to function and rapid decompensation Time Spent With Patient Time: Total time managing care of this patient today ____ minutes.
[2024-09-08] MEDS: Ibuprofen 800 MG TABLET PO ×2 (11:03→20:32)
[2024-09-08 20:00] VITALS: BP 167/85; PULSE 73; RESP 18; TEMP 36.9; O2SAT 97
[2024-09-08] MEDS: Gabapentin 100 MG CAPSULE 200 MG PO (20:32)
[2024-09-08] MEDS: OLANZapine ODT 10 MG TAB.RAPDIS 15 MG TRANSLINGU (20:32)
[2024-09-08] MEDS: Magnesium Oxide 400 MG TABLET PO (20:33)
[2024-09-08] MEDS: Melatonin 3 MG TABLET PO (20:34)
[2024-09-09 08:00] VITALS: RESP 16
--- NOTE | 2024-09-09 09:59 | PC.NURSE ---
Kate declined morning medicine, vital signs, and POC despite education and encouragement. Dr. Fish notified.
[2024-09-09] MEDS: Ibuprofen 800 MG TABLET PO ×2 (10:58→20:49)
[2024-09-09] MEDS: Magnesium Oxide 400 MG TABLET PO ×2 (14:28→20:50)
--- NOTE | 2024-09-09 14:43 | P.PNPSI_ITS ---
Subjective Subjective Date of Service: 09/09/24 Reason For Visit: Schizoaffective Subjective Notes: Ontiveros Order, Section 7 and Section 8 Guardianship: Yes Interim History: The nursing staff reported that she refused vital signs today in the morning. She had been compliant with medications as per court order. Today she wanted to have the Section 7 and 8 and we have a hearing, the pet food deboner committed her into the hospital. So far she remains psychotic tolerating the titration of Zyprexa we are increasing up to 20 mg tonight. Mental Status Exam Mental Status Exam Patient Appearance: Appropriate Patient Orientation: Person and Situation Level of Consciousness: Awake and Appropriate Patient Behavior: Guarded and Passive Mood Description: Withdrawn Affect Description: Constricted Patient Cognition Impaired: Yes Ability to Follow Directions: Good Speech Pattern: Clear Hallucinations: None Delusions: Not Present Thought Process: Distracted and Slowed Thinking Thought Content: positive for [place] and positive for Poverty of Content Judgement: Fair Diagnostics Vital Signs (24Hr): Vital Signs - 24 hr 09/08/24 20:00 09/09/24 08:00 Temperature 98.4 F Pulse Rate 73 Respiratory Rate 18 16 Blood Pressure 167/85 H Pulse Oximetry 97 Oxygen Delivery Method Room Air Labs 09/02/24 09:08 09/02/24 09:08 Labs: Laboratory Results - last 48 hr 09/07/24 20:25 POC Glucose 134 H Medications Medications Current Medications Acetaminophen (Acetaminophen 325 Mg Tablet) 650 mg PO Q6H PRN PRN Reason: Headache/Pain Mild Scale (1-3) Al Hydroxide/Mg Hydroxide (Magnesium Hydrox/Alum Hydrox 30 Ml Oral.Susp) 30 ml PO Q6H PRN PRN Reason: Heartburn/Nausea Last Admin: 09/06/24 20:18 Dose: 30 ml Docusate Sodium (Docusate Sodium 100 Mg Capsule) 100 mg PO BID PRN PRN Reason: Constipation Gabapentin (Gabapentin 100 Mg Capsule) 200 mg PO BEDTIME [facility] Last Admin: 09/08/24 20:32 Dose: 200 mg Gabapentin (Gabapentin 100 Mg Capsule) 200 mg PO TID PRN PRN Reason: malissa/anxiety Last Admin: 09/02/24 08:39 Dose: 200 mg Hydroxyzine HCl (Hydroxyzine Hcl 25 Mg Tablet) 25 mg PO Q6H PRN PRN Reason: Anxiety Ibuprofen (Ibuprofen 800 Mg Tablet) 800 mg PO Q8H PRN PRN Reason: Pain, Severe (Pain Scale 7-10) Last Admin: 09/09/24 10:58 Dose: 800 mg Magnesium Hydroxide (Milk Of Magnesia 30 Ml Oral.Susp) 30 ml PO DAILY PRN PRN Reason: Constipation Magnesium Oxide (Magnesium Oxide 400 Mg Tablet) 400 mg PO BID [facility] Last Admin: 09/09/24 14:28 Dose: 400 mg Melatonin (Melatonin 3 Mg Tablet) 3 mg PO BEDTIME MRX1 [facility] Last Admin: 09/08/24 21:32 Dose: Not Given Nifedipine (Nifedipine Er 30 Mg Tab.Er.24) 30 mg PO DAILY [facility]; Protocol Last Admin: 09/09/24 09:41 Dose: Not Given Olanzapine (Olanzapine 5 Mg Tablet) 5 mg PO Q4H PRN PRN Reason: psychosis Last Admin: 09/06/24 09:40 Dose: 5 mg Olanzapine (Olanzapine Odt 10 Mg Tab.Rapdis) 20 mg TRANSLINGU BEDTIME [facility] Olanzapine (Olanzapine 10 Mg Vial) 20 mg IM BEDTIME PRN PRN Reason: refusal of PO Zyprexa Omeprazole (Omeprazole 20 Mg Capsule.Dr) 20 mg PO BID@0630,1630 PRN PRN Reason: GERD Oxybutynin Chloride (Oxybutynin Chloride Er 5 Mg Tab.Er.24) 5 mg PO BEDTIME [facility] Last Admin: 09/08/24 20:36 Dose: Not Given Senna (Sennosides 8.6 Mg Tablet) 17.2 mg PO BEDTIME PRN PRN Reason: Constipation Allergies Allergies Allergy/AdvReac Type Severity Reaction Status Date / Time nut - unspecified Allergy Unknown Verified 08/25/24 15:31 Assessment & Plan Assessment & Plan (1) Schizoaffective disorder: Status: Acute Code(s): F25.9 - Schizoaffective disorder, unspecified Plan The patient is an elderly female with a past history of schizoaffective disorder, resident of a correction who was admitted to the emergency room of a local hospital for exacerbation of psychosis. The patient remains grossly psychotic unable to provide any information on admission. Plan 1. Gather collateral information. 2. Continue section 12 B. we have to filed for Section 7 and 8 on August 28, the case was continued for next week in the hopes of discharging her early next week. 3. We will try to gather her medication reconciliation form. On the meantime she has Zyprexa p.r.n. that it seems that it was effective as per report of the emergency room. 4. Continue 15 minute checks. 5. We got her Ontiveros order and we are going to put IM backup. So far the patient had been compliant with psychiatric treatment. 6. Zyprexa was increased up to 15 mg p.o. q.h.s. on September 03. She started responding and she looks much better. 7. We are expecting discharge next Monday to her correction. 09/08/2024: Continue medications and team working on appropriate disposition plan to ensure her ability to care for self with appropriate supports. Reason for continued inpatient stay Substantial Risk for: inability to function, rapid decompensation and med/psych decompensation Time Spent With Patient Time: Total time managing care of this patient today _20___ minutes.
[2024-09-09 20:00] VITALS: BP 178/79; PULSE 81; RESP 18; TEMP 36.1; O2SAT 94
[2024-09-09] MEDS: OLANZapine 10 MG VIAL 20 MG IM (20:45)
[2024-09-09] MEDS: Gabapentin 100 MG CAPSULE 200 MG PO (20:49)
[2024-09-09] MEDS: Magnesium Hydrox/Alum Hydrox 30 ML ORAL.SUSP PO (20:50)
[2024-09-09 21:34] LABS: Glucose, Whole Blood 139 mg/dL (60-115)
--- NOTE | 2024-09-10 10:50 | P.PNPSI_ITS ---
Subjective Subjective Date of Service: 09/10/24 Reason For Visit: Schizoaffective Subjective Notes: [facility] Order, Section 7 and Section 8 Interim History: The nursing staff reported the patient had been compliant with treatment as per court order. Yesterday she was committed here. On interview the patient denies new symptoms she looks upset. We are continue with the titration of Zyprexa. Mental Status Exam Mental Status Exam Patient Appearance: Appropriate and Unkempt Patient Orientation: Person and Situation Level of Consciousness: Awake and Appropriate Patient Behavior: Guarded and Passive Mood Description: Withdrawn Affect Description: Constricted Patient Cognition Impaired: Yes Ability to Follow Directions: Fair Speech Pattern: Clear Hallucinations: None Delusions: Paranoid Ideation and Ideas of Reference Thought Process: Distracted and Slowed Thinking Thought Content: positive for [place] and positive for Poverty of Content Judgement: Fair Diagnostics Vital Signs (24Hr): Vital Signs - 24 hr 09/09/24 20:00 Temperature 97 F Pulse Rate 81 Respiratory Rate 18 Blood Pressure 178/79 H Pulse Oximetry 94 Oxygen Delivery Method Room Air Labs 09/02/24 09:08 09/02/24 09:08 Labs: Laboratory Results - last 48 hr 09/09/24 20:42 POC Glucose 139 H Medications Medications Current Medications Acetaminophen (Acetaminophen 325 Mg Tablet) 650 mg PO Q6H PRN PRN Reason: Headache/Pain Mild Scale (1-3) Al Hydroxide/Mg Hydroxide (Magnesium Hydrox/Alum Hydrox 30 Ml Oral.Susp) 30 ml PO Q6H PRN PRN Reason: Heartburn/Nausea Last Admin: 09/09/24 20:50 Dose: 30 ml Docusate Sodium (Docusate Sodium 100 Mg Capsule) 100 mg PO BID PRN PRN Reason: Constipation Gabapentin (Gabapentin 100 Mg Capsule) 200 mg PO BEDTIME [facility] Last Admin: 09/09/24 20:49 Dose: 200 mg Gabapentin (Gabapentin 100 Mg Capsule) 200 mg PO TID PRN PRN Reason: malissa/anxiety Last Admin: 09/02/24 08:39 Dose: 200 mg Hydroxyzine HCl (Hydroxyzine Hcl 25 Mg Tablet) 25 mg PO Q6H PRN PRN Reason: Anxiety Ibuprofen (Ibuprofen 800 Mg Tablet) 800 mg PO Q8H PRN PRN Reason: Pain, Severe (Pain Scale 7-10) Last Admin: 09/09/24 20:49 Dose: 800 mg Magnesium Hydroxide (Milk Of Magnesia 30 Ml Oral.Susp) 30 ml PO DAILY PRN PRN Reason: Constipation Magnesium Oxide (Magnesium Oxide 400 Mg Tablet) 400 mg PO BID [facility] Last Admin: 09/10/24 10:24 Dose: Not Given Melatonin (Melatonin 3 Mg Tablet) 3 mg PO BEDTIME MRX1 [facility] Last Admin: 09/09/24 22:06 Dose: Not Given Nifedipine (Nifedipine Er 30 Mg Tab.Er.24) 30 mg PO DAILY [facility]; Protocol Last Admin: 09/10/24 10:24 Dose: Not Given Olanzapine (Olanzapine 5 Mg Tablet) 5 mg PO Q4H PRN PRN Reason: psychosis Last Admin: 09/06/24 09:40 Dose: 5 mg Olanzapine (Olanzapine Odt 10 Mg Tab.Rapdis) 20 mg TRANSLINGU BEDTIME [facility] Last Admin: 09/09/24 20:54 Dose: Not Given Olanzapine (Olanzapine 10 Mg Vial) 20 mg IM BEDTIME PRN PRN Reason: refusal of PO Zyprexa Last Admin: 09/09/24 20:45 Dose: 20 mg Omeprazole (Omeprazole 20 Mg Capsule.Dr) 20 mg PO BID@0630,1630 PRN PRN Reason: GERD Oxybutynin Chloride (Oxybutynin Chloride Er 5 Mg Tab.Er.24) 5 mg PO BEDTIME [facility] Last Admin: 09/09/24 20:55 Dose: Not Given Senna (Sennosides 8.6 Mg Tablet) 17.2 mg PO BEDTIME PRN PRN Reason: Constipation Allergies Allergies Allergy/AdvReac Type Severity Reaction Status Date / Time nut - unspecified Allergy Unknown Verified 08/25/24 15:31 Assessment & Plan Assessment & Plan (1) Schizoaffective disorder: Status: Acute Code(s): F25.9 - Schizoaffective disorder, unspecified Plan The patient is an elderly female with a past history of schizoaffective disorder, resident of a [place] [facility] [place] who was admitted to the emergency room of a local hospital for exacerbation of psychosis. The patient remains grossly psychotic unable to provide any information on admission. Plan 1. Gather collateral information. 2. Continue section 12 B. we have to filed for Section 7 and 8 on August 28, the case was continued for next week in the hopes of discharging her early next week Unfortunately, we went to court on 09/09 and she was committed. 3. We will try to gather her medication reconciliation form. On the meantime she has Zyprexa p.r.n. that it seems that it was effective as per report of the emergency room. 4. Continue 15 minute checks. 5. We got her [facility] order and we are going to put IM backup. So far the patient had been compliant with psychiatric treatment. 6. Zyprexa was increased up to 15 mg p.o. q.h.s. on September 03. She started responding and she looks much better. 7. We are expecting discharge next Monday to [place] [facility] [place]. Reason for continued inpatient stay Substantial Risk for: inability to function, rapid decompensation and med/psych decompensation Time Spent With Patient Time: Total time managing care of this patient today __20__ minutes.
[2024-09-10 11:01] VITALS: BP 151/85; PULSE 88; RESP 18; TEMP 36.6; O2SAT 95
[2024-09-10] MEDS: NIFEdipine ER 30 MG TAB.ER.24 PO (11:02)
[2024-09-10] MEDS: OLANZapine 5 MG TABLET PO (11:02)
[2024-09-10] MEDS: Magnesium Oxide 400 MG TABLET PO ×2 (11:02→20:48)
[2024-09-10] MEDS: Ibuprofen 800 MG TABLET PO ×2 (11:02→20:47)
[2024-09-10] MEDS: Magnesium Hydrox/Alum Hydrox 30 ML ORAL.SUSP PO (12:20)
[2024-09-10 20:00] VITALS: BP 150/80; PULSE 85; RESP 16; TEMP 36.9; O2SAT 97
[2024-09-10] MEDS: Gabapentin 100 MG CAPSULE 200 MG PO (20:48)
[2024-09-10] MEDS: OLANZapine ODT 10 MG TAB.RAPDIS 20 MG TRANSLINGU (20:48)
[2024-09-10] MEDS: Melatonin 3 MG TABLET PO ×2 (20:48→21:01)
[2024-09-11] MEDS: Ibuprofen 800 MG TABLET PO ×2 (05:08→14:42)
[2024-09-11 08:00] LABS: Glucose, Whole Blood 140 mg/dL (60-115)
[2024-09-11 08:03] VITALS: RESP 17
[2024-09-11] MEDS: Magnesium Hydrox/Alum Hydrox 30 ML ORAL.SUSP PO (09:43)
[2024-09-11] MEDS: Magnesium Oxide 400 MG TABLET PO ×3 (09:43→20:27)
[2024-09-11] MEDS: Acetaminophen 325 MG TABLET 650 MG PO (09:44)
--- NOTE | 2024-09-11 11:41 | P.PNPSI_ITS ---
Subjective Subjective Date of Service: 09/11/24 Reason For Visit: Schizoaffective Subjective Notes: [facility] Order, Section 7 and Section 8 Interim History: The nursing staff reported the patient had been a little less aggressive than yesterday, the staff reported that yesterday she stated that she wants to kill the [facility]. She took her medications as per court order. Today she attended the groups and she was less irritable. On interview the patient denies new symptoms, no over-sedation with increase of Zyprexa. Mental Status Exam Mental Status Exam Patient Appearance: Appropriate Patient Orientation: Person and Situation Level of Consciousness: Awake and Appropriate Patient Behavior: Guarded and Passive Mood Description: Calm Affect Description: Constricted Patient Cognition Impaired: Yes Ability to Follow Directions: Good Speech Pattern: Clear Hallucinations: None Delusions: Paranoid Ideation and Ideas of Reference Thought Process: Distracted and Slowed Thinking Thought Content: positive for [place] and positive for Poverty of Content Judgement: Fair Diagnostics Vital Signs (24Hr): Vital Signs - 24 hr 09/10/24 20:00 09/11/24 08:03 Temperature 98.4 F Pulse Rate 85 Respiratory Rate 16 17 Blood Pressure 150/80 H Pulse Oximetry 97 Oxygen Delivery Method Room Air Labs 09/02/24 09:08 09/02/24 09:08 Labs: Laboratory Results - last 48 hr 09/09/24 09/11/24 20:42 06:52 POC Glucose 139 H 140 H Medications Medications Current Medications Acetaminophen (Acetaminophen 325 Mg Tablet) 650 mg PO Q6H PRN PRN Reason: Headache/Pain Mild Scale (1-3) Last Admin: 09/11/24 09:44 Dose: 650 mg Al Hydroxide/Mg Hydroxide (Magnesium Hydrox/Alum Hydrox 30 Ml Oral.Susp) 30 ml PO Q6H PRN PRN Reason: Heartburn/Nausea Last Admin: 09/11/24 09:43 Dose: 30 ml Docusate Sodium (Docusate Sodium 100 Mg Capsule) 100 mg PO BID PRN PRN Reason: Constipation Gabapentin (Gabapentin 100 Mg Capsule) 200 mg PO BEDTIME [facility] Last Admin: 09/10/24 20:48 Dose: 200 mg Gabapentin (Gabapentin 100 Mg Capsule) 200 mg PO TID PRN PRN Reason: malissa/anxiety Last Admin: 09/02/24 08:39 Dose: 200 mg Hydroxyzine HCl (Hydroxyzine Hcl 25 Mg Tablet) 25 mg PO Q6H PRN PRN Reason: Anxiety Ibuprofen (Ibuprofen 800 Mg Tablet) 800 mg PO Q8H PRN PRN Reason: Pain, Severe (Pain Scale 7-10) Last Admin: 09/11/24 05:08 Dose: 800 mg Magnesium Hydroxide (Milk Of Magnesia 30 Ml Oral.Susp) 30 ml PO DAILY PRN PRN Reason: Constipation Magnesium Oxide (Magnesium Oxide 400 Mg Tablet) 400 mg PO BID [facility] Last Admin: 09/11/24 09:43 Dose: 400 mg Melatonin (Melatonin 3 Mg Tablet) 3 mg PO BEDTIME MRX1 [facility] Last Admin: 09/10/24 21:01 Dose: 3 mg Nifedipine (Nifedipine Er 30 Mg Tab.Er.24) 30 mg PO DAILY [facility]; Protocol Last Admin: 09/11/24 08:02 Dose: Not Given Olanzapine (Olanzapine 5 Mg Tablet) 5 mg PO Q4H PRN PRN Reason: psychosis Last Admin: 09/10/24 11:02 Dose: 5 mg Olanzapine (Olanzapine Odt 10 Mg Tab.Rapdis) 20 mg TRANSLINGU BEDTIME [facility] Last Admin: 09/10/24 20:48 Dose: 20 mg Olanzapine (Olanzapine 10 Mg Vial) 20 mg IM BEDTIME PRN PRN Reason: refusal of PO Zyprexa Last Admin: 09/09/24 20:45 Dose: 20 mg Omeprazole (Omeprazole 20 Mg Capsule.Dr) 20 mg PO BID@0630,1630 PRN PRN Reason: GERD Oxybutynin Chloride (Oxybutynin Chloride Er 5 Mg Tab.Er.24) 5 mg PO BEDTIME [facility] Last Admin: 09/10/24 20:51 Dose: Not Given Senna (Sennosides 8.6 Mg Tablet) 17.2 mg PO BEDTIME PRN PRN Reason: Constipation Allergies Allergies Allergy/AdvReac Type Severity Reaction Status Date / Time nut - unspecified Allergy Unknown Verified 08/25/24 15:31 Assessment & Plan Assessment & Plan (1) Schizoaffective disorder: Status: Acute Code(s): F25.9 - Schizoaffective disorder, unspecified Plan The patient is an elderly female with a past history of schizoaffective disorder, resident of a [facility] who was admitted to the emergency room of a local hospital for exacerbation of psychosis. The patient remains grossly psychotic unable to provide any information on admission. Plan 1. Gather collateral information. 2. Continue section 12 B. we have to filed for Section 7 and 8 on August 28, the case was continued for next week in the hopes of discharging her early next week Unfortunately, we went to court on 09/09 and she was committed. 3. We will try to gather her medication reconciliation form. On the meantime she has Zyprexa p.r.n. that it seems that it was effective as per report of the emergency room. 4. Continue 15 minute checks. 5. We got her [facility] order and we are going to put IM backup. So far the patient had been compliant with psychiatric treatment. 6. Zyprexa was increased up to 15 mg p.o. q.h.s. on September 03. She started responding and she looks much better. Her Zyprexa was increased up to 20 mg p.o. q.h.s. on September 10 due to exacerbation of psychosis Reason for continued inpatient stay Substantial Risk for: inability to function, rapid decompensation and med/psych decompensation Time Spent With Patient Time: Total time managing care of this patient today __20__ minutes.
[2024-09-11] MEDS: OLANZapine ODT 10 MG TAB.RAPDIS 20 MG TRANSLINGU (19:36)
[2024-09-12 06:24] LABS: Glucose, Whole Blood 106 mg/dL (60-115)
[2024-09-12] MEDS: Ibuprofen 800 MG TABLET PO (11:24)
--- NOTE | 2024-09-12 15:48 | HO.PSYCHPN ---
Subjective Subjective Date of Service: 09/12/24 Reason For Visit: Schizoaffective Subjective Notes: [facility] Order, Section 7 and Section 8 Interim History: The nursing staff reported that she has been compliant with medications as per court order, she was seen self-dialoguing. The OT has noticed that she is more clam and the SW will contact the residential for a reassessment. On interview, she denied new symptoms. Mental Status Exam Mental Status Exam Patient Appearance: Appropriate Patient Orientation: Person and Situation Level of Consciousness: Awake and Appropriate Patient Behavior: Guarded and Passive Mood Description: Withdrawn Affect Description: Constricted Patient Cognition Impaired: Yes Ability to Follow Directions: Good Speech Pattern: Clear Hallucinations: Auditory Delusions: Paranoid Ideation Thought Process: Distracted and Slowed Thinking Thought Content: positive for [place], positive for [place] and positive for Poverty of Content Judgement: Poor Diagnostics Labs 09/02/24 09:08 09/02/24 09:08 Labs: Laboratory Results - last 48 hr 09/11/24 09/12/24 06:52 05:35 POC Glucose 140 H 106 Medications Medications Current Medications Acetaminophen (Acetaminophen 325 Mg Tablet) 650 mg PO Q6H PRN PRN Reason: Headache/Pain Mild Scale (1-3) Last Admin: 09/11/24 09:44 Dose: 650 mg Al Hydroxide/Mg Hydroxide (Magnesium Hydrox/Alum Hydrox 30 Ml Oral.Susp) 30 ml PO Q6H PRN PRN Reason: Heartburn/Nausea Last Admin: 09/11/24 09:43 Dose: 30 ml Docusate Sodium (Docusate Sodium 100 Mg Capsule) 100 mg PO BID PRN PRN Reason: Constipation Gabapentin (Gabapentin 100 Mg Capsule) 200 mg PO BEDTIME [facility] Last Admin: 09/11/24 19:36 Dose: Not Given Gabapentin (Gabapentin 100 Mg Capsule) 200 mg PO TID PRN PRN Reason: malissa/anxiety Last Admin: 09/02/24 08:39 Dose: 200 mg Hydroxyzine HCl (Hydroxyzine Hcl 25 Mg Tablet) 25 mg PO Q6H PRN PRN Reason: Anxiety Ibuprofen (Ibuprofen 800 Mg Tablet) 800 mg PO Q8H PRN PRN Reason: Pain, Severe (Pain Scale 7-10) Last Admin: 09/12/24 11:24 Dose: 800 mg Magnesium Hydroxide (Milk Of Magnesia 30 Ml Oral.Susp) 30 ml PO DAILY PRN PRN Reason: Constipation Magnesium Oxide (Magnesium Oxide 400 Mg Tablet) 400 mg PO BID [facility] Last Admin: 09/12/24 08:41 Dose: Not Given Melatonin (Melatonin 3 Mg Tablet) 3 mg PO BEDTIME MRX1 [facility] Last Admin: 09/11/24 19:48 Dose: Not Given Nifedipine (Nifedipine Er 30 Mg Tab.Er.24) 30 mg PO DAILY [facility]; Protocol Last Admin: 09/12/24 08:41 Dose: Not Given Olanzapine (Olanzapine 5 Mg Tablet) 5 mg PO Q4H PRN PRN Reason: psychosis Last Admin: 09/10/24 11:02 Dose: 5 mg Olanzapine (Olanzapine Odt 10 Mg Tab.Rapdis) 20 mg TRANSLINGU BEDTIME [facility] Last Admin: 09/11/24 19:36 Dose: 20 mg Olanzapine (Olanzapine 10 Mg Vial) 20 mg IM BEDTIME PRN PRN Reason: refusal of PO Zyprexa Last Admin: 09/09/24 20:45 Dose: 20 mg Omeprazole (Omeprazole 20 Mg Capsule.Dr) 20 mg PO BID@0630,1630 PRN PRN Reason: GERD Oxybutynin Chloride (Oxybutynin Chloride Er 5 Mg Tab.Er.24) 5 mg PO BEDTIME [facility] Last Admin: 09/11/24 19:37 Dose: Not Given Senna (Sennosides 8.6 Mg Tablet) 17.2 mg PO BEDTIME PRN PRN Reason: Constipation Allergies Allergies Allergy/AdvReac Type Severity Reaction Status Date / Time nut - unspecified Allergy Unknown Verified 08/25/24 15:31 Assessment & Plan Assessment & Plan (1) Schizoaffective disorder: Status: Acute Code(s): F25.9 - Schizoaffective disorder, unspecified Plan The patient is an elderly female with a past history of schizoaffective disorder, resident of a residential who was admitted to the emergency room of a local hospital for exacerbation of psychosis. The patient remains grossly psychotic unable to provide any information on admission. Plan 1. Gather collateral information. 2. Continue section 12 B. we have to filed for Section 7 and 8 on August 28, the case was continued for next week in the hopes of discharging her early next week Unfortunately, we went to court on 09/09 and she was committed. 3. We will try to gather her medication reconciliation form. On the meantime she has Zyprexa p.r.n. that it seems that it was effective as per report of the emergency room. 4. Continue 15 minute checks. 5. We got her [facility] order and we are going to put IM backup. So far the patient had been compliant with psychiatric treatment. 6. Zyprexa was increased up to 15 mg p.o. q.h.s. on September 03. She started responding and she looks much better. Her Zyprexa was increased up to 20 mg p.o. q.h.s. on September 10 due to exacerbation of psychosis Reason for continued inpatient stay Substantial Risk for: inability to function, rapid decompensation and med/psych decompensation Time Spent With Patient Time: Total time managing care of this patient today __20__ minutes.
[2024-09-12 20:00] VITALS: BP 178/76; PULSE 81; RESP 16; TEMP 36.9; O2SAT 99
[2024-09-12] MEDS: Gabapentin 100 MG CAPSULE 200 MG PO (20:03)
[2024-09-12] MEDS: OLANZapine 10 MG VIAL 20 MG IM (20:03)
[2024-09-12] MEDS: Magnesium Oxide 400 MG TABLET PO (20:03)
[2024-09-13 06:55] LABS: Glucose, Whole Blood 112 mg/dL (60-115)
[2024-09-13 08:15] VITALS: BP 156/84; PULSE 78; RESP 16; TEMP 36.8; O2SAT 94
[2024-09-13] MEDS: Magnesium Hydrox/Alum Hydrox 30 ML ORAL.SUSP PO (09:17)
[2024-09-13] MEDS: Ibuprofen 800 MG TABLET PO ×2 (15:16→20:26)
--- NOTE | 2024-09-13 16:20 | HO.PSYCHPN ---
Subjective Subjective Date of Service: 09/13/24 Reason For Visit: Schizoaffective Subjective Notes: Conditional Voluntary Interim History: The nursing staff reported the patient had been seen talking to herself refused her vital signs. The health and social care teacher reported that we have next week a family meeting with her [facility] staff to see if she has improved. On interview the patient had been sedated at night. No changes in her mental status. Mental Status Exam Mental Status Exam Patient Appearance: Well Grooomed and Appropriate Patient Orientation: Person and Situation Level of Consciousness: Awake and Appropriate Patient Behavior: Guarded and Passive Mood Description: Withdrawn Affect Description: Constricted Patient Cognition Impaired: Yes Ability to Follow Directions: Good Speech Pattern: Clear Hallucinations: Auditory Delusions: Paranoid Ideation and Ideas of Reference Thought Process: Illogical and Distracted Thought Content: positive for [place] and positive for Poverty of Content Judgement: Fair Diagnostics Vital Signs (24Hr): Vital Signs - 24 hr 09/12/24 20:00 09/13/24 08:15 Temperature 98.5 F 98.3 F Pulse Rate 81 78 Respiratory Rate 16 16 Blood Pressure 178/76 H 156/84 H Pulse Oximetry 99 94 Oxygen Delivery Method Room Air Room Air Labs 09/02/24 09:08 09/02/24 09:08 Labs: Laboratory Results - last 48 hr 09/12/24 09/13/24 05:35 06:26 POC Glucose 106 112 Medications Medications Current Medications Acetaminophen (Acetaminophen 325 Mg Tablet) 650 mg PO Q6H PRN PRN Reason: Headache/Pain Mild Scale (1-3) Last Admin: 09/11/24 09:44 Dose: 650 mg Al Hydroxide/Mg Hydroxide (Magnesium Hydrox/Alum Hydrox 30 Ml Oral.Susp) 30 ml PO Q6H PRN PRN Reason: Heartburn/Nausea Last Admin: 09/13/24 09:17 Dose: 30 ml Docusate Sodium (Docusate Sodium 100 Mg Capsule) 100 mg PO BID PRN PRN Reason: Constipation Gabapentin (Gabapentin 100 Mg Capsule) 200 mg PO BEDTIME [facility] Last Admin: 09/12/24 20:03 Dose: 200 mg Gabapentin (Gabapentin 100 Mg Capsule) 200 mg PO TID PRN PRN Reason: malissa/anxiety Last Admin: 09/02/24 08:39 Dose: 200 mg Hydroxyzine HCl (Hydroxyzine Hcl 25 Mg Tablet) 25 mg PO Q6H PRN PRN Reason: Anxiety Ibuprofen (Ibuprofen 800 Mg Tablet) 800 mg PO Q8H PRN PRN Reason: Pain, Severe (Pain Scale 7-10) Last Admin: 09/13/24 15:16 Dose: 800 mg Magnesium Hydroxide (Milk Of Magnesia 30 Ml Oral.Susp) 30 ml PO DAILY PRN PRN Reason: Constipation Magnesium Oxide (Magnesium Oxide 400 Mg Tablet) 400 mg PO BID [facility] Last Admin: 09/13/24 08:56 Dose: Not Given Melatonin (Melatonin 3 Mg Tablet) 3 mg PO BEDTIME MRX1 [facility] Last Admin: 09/12/24 23:53 Dose: Not Given Nifedipine (Nifedipine Er 30 Mg Tab.Er.24) 30 mg PO DAILY [facility]; Protocol Last Admin: 09/13/24 08:56 Dose: Not Given Olanzapine (Olanzapine 5 Mg Tablet) 5 mg PO Q4H PRN PRN Reason: psychosis Last Admin: 09/10/24 11:02 Dose: 5 mg Olanzapine (Olanzapine Odt 10 Mg Tab.Rapdis) 20 mg TRANSLINGU BEDTIME [facility] Last Admin: 09/12/24 20:08 Dose: Not Given Olanzapine (Olanzapine 10 Mg Vial) 20 mg IM BEDTIME PRN PRN Reason: refusal of PO Zyprexa Last Admin: 09/12/24 20:03 Dose: 20 mg Omeprazole (Omeprazole 20 Mg Capsule.Dr) 20 mg PO BID@0630,1630 PRN PRN Reason: GERD Oxybutynin Chloride (Oxybutynin Chloride Er 5 Mg Tab.Er.24) 5 mg PO BEDTIME [facility] Last Admin: 09/12/24 20:10 Dose: Not Given Senna (Sennosides 8.6 Mg Tablet) 17.2 mg PO BEDTIME PRN PRN Reason: Constipation Allergies Allergies Allergy/AdvReac Type Severity Reaction Status Date / Time nut - unspecified Allergy Unknown Verified 08/25/24 15:31 Assessment & Plan Assessment & Plan (1) Schizoaffective disorder: Status: Acute Code(s): F25.9 - Schizoaffective disorder, unspecified Plan The patient is an elderly female with a past history of schizoaffective disorder, resident of a [facility] who was admitted to the emergency room of a local hospital for exacerbation of psychosis. The patient remains grossly psychotic unable to provide any information on admission. Plan 1. Gather collateral information. 2. Continue section 12 B. we have to filed for Section 7 and 8 on August 28, the case was continued for next week in the hopes of discharging her early next week Unfortunately, we went to court on 09/09 and she was committed. 3. We will try to gather her medication reconciliation form. On the meantime she has Zyprexa p.r.n. that it seems that it was effective as per report of the emergency room. 4. Continue 15 minute checks. 5. We got her [facility] order and we are going to put IM backup. So far the patient had been compliant with psychiatric treatment. 6. Zyprexa was increased up to 15 mg p.o. q.h.s. on September 03. She started responding and she looks much better. Her Zyprexa was increased up to 20 mg p.o. q.h.s. on September 10 due to exacerbation of psychosis Reason for continued inpatient stay Substantial Risk for: inability to function, rapid decompensation and med/psych decompensation Time Spent With Patient Time: Total time managing care of this patient today __20__ minutes.
[2024-09-13 20:00] VITALS: BP 177/77; PULSE 80; RESP 15; TEMP 36.1; O2SAT 94
[2024-09-13] MEDS: Magnesium Oxide 400 MG TABLET PO (20:27)
[2024-09-13] MEDS: OLANZapine 10 MG VIAL 20 MG IM (20:29)
[2024-09-13] MEDS: Acetaminophen 325 MG TABLET 650 MG PO (22:01)
[2024-09-14 06:28] LABS: Glucose, Whole Blood 97 mg/dL (60-115)
--- NOTE | 2024-09-14 06:58 | P.PNPSI_ITS ---
Subjective Subjective Date of Service: 09/14/24 Reason For Visit: Schizoaffective Subjective Notes: [facility] Order, Section 7 and Section 8 Healthcare Proxy: Yes Guardianship: Yes Interim History: The nursing staff reported the patient had been compliant with treatment as per court order. On interview the patient had been more irritable and angry, she asked for IM Zyprexa. we will have a family meeting with his team next for discharge planning. Mental Status Exam Mental Status Exam Patient Appearance: Appropriate Patient Orientation: Person and Situation Level of Consciousness: Awake and Appropriate Patient Behavior: Guarded and Passive Mood Description: Withdrawn Affect Description: Constricted Patient Cognition Impaired: Yes Ability to Follow Directions: Good Speech Pattern: Clear Hallucinations: None Delusions: Not Present Thought Process: Distracted and Slowed Thinking Thought Content: positive for [place] and positive for Poverty of Content Judgement: Poor Diagnostics Vital Signs (24Hr): Vital Signs - 24 hr 09/13/24 08:15 09/13/24 20:00 Temperature 98.3 F 96.9 F Pulse Rate 78 80 Respiratory Rate 16 15 Blood Pressure 156/84 H 177/77 H Pulse Oximetry 94 94 Oxygen Delivery Method Room Air Room Air Labs 09/02/24 09:08 09/02/24 09:08 Labs: Laboratory Results - last 48 hr 09/13/24 09/14/24 06:26 06:22 POC Glucose 112 97 Medications Medications Current Medications Acetaminophen (Acetaminophen 325 Mg Tablet) 650 mg PO Q6H PRN PRN Reason: Headache/Pain Mild Scale (1-3) Last Admin: 09/13/24 22:01 Dose: 650 mg Al Hydroxide/Mg Hydroxide (Magnesium Hydrox/Alum Hydrox 30 Ml Oral.Susp) 30 ml PO Q6H PRN PRN Reason: Heartburn/Nausea Last Admin: 09/13/24 09:17 Dose: 30 ml Docusate Sodium (Docusate Sodium 100 Mg Capsule) 100 mg PO BID PRN PRN Reason: Constipation Gabapentin (Gabapentin 100 Mg Capsule) 200 mg PO BEDTIME FAHAD Last Admin: 09/13/24 20:35 Dose: Not Given Gabapentin (Gabapentin 100 Mg Capsule) 200 mg PO TID PRN PRN Reason: malissa/anxiety Last Admin: 09/02/24 08:39 Dose: 200 mg Hydroxyzine HCl (Hydroxyzine Hcl 25 Mg Tablet) 25 mg PO Q6H PRN PRN Reason: Anxiety Ibuprofen (Ibuprofen 800 Mg Tablet) 800 mg PO Q8H PRN PRN Reason: Pain, Severe (Pain Scale 7-10) Last Admin: 09/13/24 20:26 Dose: 800 mg Magnesium Hydroxide (Milk Of Magnesia 30 Ml Oral.Susp) 30 ml PO DAILY PRN PRN Reason: Constipation Magnesium Oxide (Magnesium Oxide 400 Mg Tablet) 400 mg PO BID [facility] Last Admin: 09/13/24 20:27 Dose: 400 mg Melatonin (Melatonin 3 Mg Tablet) 3 mg PO BEDTIME MRX1 [facility] Last Admin: 09/13/24 20:35 Dose: Not Given Nifedipine (Nifedipine Er 30 Mg Tab.Er.24) 30 mg PO DAILY [facility]; Protocol Last Admin: 09/13/24 08:56 Dose: Not Given Olanzapine (Olanzapine 5 Mg Tablet) 5 mg PO Q4H PRN PRN Reason: psychosis Last Admin: 09/10/24 11:02 Dose: 5 mg Olanzapine (Olanzapine Odt 10 Mg Tab.Rapdis) 20 mg TRANSLINGU BEDTIME [facility] Last Admin: 09/13/24 20:27 Dose: Not Given Olanzapine (Olanzapine 10 Mg Vial) 20 mg IM BEDTIME PRN PRN Reason: refusal of PO Zyprexa Last Admin: 09/13/24 20:29 Dose: 20 mg Omeprazole (Omeprazole 20 Mg Capsule.Dr) 20 mg PO BID@0630,1630 PRN PRN Reason: GERD Oxybutynin Chloride (Oxybutynin Chloride Er 5 Mg Tab.Er.24) 5 mg PO BEDTIME [facility] Last Admin: 09/13/24 20:35 Dose: Not Given Senna (Sennosides 8.6 Mg Tablet) 17.2 mg PO BEDTIME PRN PRN Reason: Constipation Allergies Allergies Allergy/AdvReac Type Severity Reaction Status Date / Time nut - unspecified Allergy Unknown Verified 08/25/24 15:31 Assessment & Plan Assessment & Plan (1) Schizoaffective disorder: Status: Acute Code(s): F25.9 - Schizoaffective disorder, unspecified Plan The patient is an elderly female with a past history of schizoaffective disorder, resident of a long-term who was admitted to the emergency room of a local hospital for exacerbation of psychosis. The patient remains grossly psychotic unable to provide any information on admission. Plan 1. Gather collateral information. 2. Continue section 12 B. we have to filed for Section 7 and 8 on August 28, the case was continued for next week in the hopes of discharging her early next week Unfortunately, we went to court on 09/09 and she was committed. 3. We will try to gather her medication reconciliation form. On the meantime she has Zyprexa p.r.n. that it seems that it was effective as per report of the emergency room. 4. Continue 15 minute checks. 5. We got her [facility] order and we are going to put IM backup. So far the patient had been compliant with psychiatric treatment. 6. Zyprexa was increased up to 15 mg p.o. q.h.s. on September 03. She started responding and she looks much better. Her Zyprexa was increased up to 20 mg p.o. q.h.s. on September 10 due to exacerbation of psychosis. On 09/14 we are adding Zyprexa 5 mg at AM Reason for continued inpatient stay Substantial Risk for: inability to function, rapid decompensation and med/psych decompensation Time Spent With Patient Time: Total time managing care of this patient today __20__ minutes.
[2024-09-14 08:00] VITALS: RESP 16
[2024-09-14] MEDS: Ibuprofen 800 MG TABLET PO ×2 (13:04→21:00)
[2024-09-14] MEDS: hydrOXYzine HCL 25 MG TABLET PO (13:08)
[2024-09-14] MEDS: Magnesium Oxide 400 MG TABLET PO (21:01)
[2024-09-14] MEDS: OLANZapine ODT 10 MG TAB.RAPDIS 20 MG TRANSLINGU (21:08)
[2024-09-14 21:12] VITALS: BP 177/81; PULSE 73; RESP 16; TEMP 36.6; O2SAT 96
[2024-09-15 06:14] LABS: Glucose, Whole Blood 99 mg/dL (60-115)
--- NOTE | 2024-09-15 06:59 | HO.PSYCHPN ---
Subjective Subjective Date of Service: 09/15/24 Reason For Visit: Schizoaffective Subjective Notes: [facility] Order, Section 7 and Section 8 Interim History: The nursing staff reported the patient had been compliant as per court order. Yesterday increased a little more Zyprexa since she a patient was been more irritable and disorganized. Today the patient reported that she wants to be discharged and move out to [place], still very psychotic slept well last night. Mental Status Exam Mental Status Exam Patient Appearance: Appropriate Patient Orientation: Person and Situation Level of Consciousness: Awake Patient Behavior: Guarded and Passive Mood Description: Withdrawn Affect Description: Constricted Patient Cognition Impaired: Yes Ability to Follow Directions: Fair Speech Pattern: Clear Hallucinations: Auditory Delusions: Paranoid Ideation and Ideas of Reference Thought Process: Distracted and Slowed Thinking Thought Content: positive for [place] and positive for Poverty of Content Judgement: Poor Diagnostics Vital Signs (24Hr): Vital Signs - 24 hr 09/14/24 08:00 09/14/24 21:12 Temperature 98 F Pulse Rate 73 Respiratory Rate 16 16 Blood Pressure 177/81 H Pulse Oximetry 96 Labs 09/02/24 09:08 09/02/24 09:08 Labs: Laboratory Results - last 48 hr 09/14/24 09/15/24 06:22 06:06 POC Glucose 97 99 Medications Medications Current Medications Acetaminophen (Acetaminophen 325 Mg Tablet) 650 mg PO Q6H PRN PRN Reason: Headache/Pain Mild Scale (1-3) Last Admin: 09/13/24 22:01 Dose: 650 mg Al Hydroxide/Mg Hydroxide (Magnesium Hydrox/Alum Hydrox 30 Ml Oral.Susp) 30 ml PO Q6H PRN PRN Reason: Heartburn/Nausea Last Admin: 09/13/24 09:17 Dose: 30 ml Docusate Sodium (Docusate Sodium 100 Mg Capsule) 100 mg PO BID PRN PRN Reason: Constipation Gabapentin (Gabapentin 100 Mg Capsule) 200 mg PO BEDTIME FAHAD Last Admin: 09/14/24 21:19 Dose: Not Given Gabapentin (Gabapentin 100 Mg Capsule) 200 mg PO TID PRN PRN Reason: malissa/anxiety Last Admin: 09/02/24 08:39 Dose: 200 mg Hydroxyzine HCl (Hydroxyzine Hcl 25 Mg Tablet) 25 mg PO Q6H PRN PRN Reason: Anxiety Last Admin: 09/14/24 13:08 Dose: 25 mg Ibuprofen (Ibuprofen 800 Mg Tablet) 800 mg PO Q8H PRN PRN Reason: Pain, Severe (Pain Scale 7-10) Last Admin: 09/14/24 21:00 Dose: 800 mg Magnesium Hydroxide (Milk Of Magnesia 30 Ml Oral.Susp) 30 ml PO DAILY PRN PRN Reason: Constipation Magnesium Oxide (Magnesium Oxide 400 Mg Tablet) 400 mg PO BID [facility] Last Admin: 09/14/24 21:01 Dose: 400 mg Melatonin (Melatonin 3 Mg Tablet) 3 mg PO BEDTIME MRX1 [facility] Last Admin: 09/14/24 21:19 Dose: Not Given Nifedipine (Nifedipine Er 30 Mg Tab.Er.24) 30 mg PO DAILY [facility]; Protocol Last Admin: 09/14/24 10:38 Dose: Not Given Olanzapine (Olanzapine 5 Mg Tablet) 5 mg PO Q4H PRN PRN Reason: psychosis Last Admin: 09/10/24 11:02 Dose: 5 mg Olanzapine (Olanzapine Odt 10 Mg Tab.Rapdis) 20 mg TRANSLINGU BEDTIME [facility] Last Admin: 09/14/24 21:08 Dose: 20 mg Olanzapine (Olanzapine 10 Mg Vial) 20 mg IM BEDTIME PRN PRN Reason: refusal of PO Zyprexa Last Admin: 09/13/24 20:29 Dose: 20 mg Olanzapine (Olanzapine 5 Mg Tablet) 5 mg PO DAILY [facility] Omeprazole (Omeprazole 20 Mg Capsule.Dr) 20 mg PO BID@0630,1630 PRN PRN Reason: GERD Oxybutynin Chloride (Oxybutynin Chloride Er 5 Mg Tab.Er.24) 5 mg PO BEDTIME [facility] Last Admin: 09/14/24 20:59 Dose: Not Given Senna (Sennosides 8.6 Mg Tablet) 17.2 mg PO BEDTIME PRN PRN Reason: Constipation Allergies Allergies Allergy/AdvReac Type Severity Reaction Status Date / Time nut - unspecified Allergy Unknown Verified 08/25/24 15:31 Assessment & Plan Assessment & Plan (1) Schizoaffective disorder: Status: Acute Code(s): F25.9 - Schizoaffective disorder, unspecified Plan The patient is an elderly female with a past history of schizoaffective disorder, resident of a fdc who was admitted to the emergency room of a local hospital for exacerbation of psychosis. The patient remains grossly psychotic unable to provide any information on admission. Plan 1. Gather collateral information. 2. Continue section 12 B. we have to filed for Section 7 and 8 on August 28, the case was continued for next week in the hopes of discharging her early next week Unfortunately, we went to court on 09/09 and she was committed. 3. We will try to gather her medication reconciliation form. On the meantime she has Zyprexa p.r.n. that it seems that it was effective as per report of the emergency room. 4. Continue 15 minute checks. 5. We got her [facility] order and we are going to put IM backup. So far the patient had been compliant with psychiatric treatment. 6. Zyprexa was increased up to 15 mg p.o. q.h.s. on September 03. She started responding and she looks much better. Her Zyprexa was increased up to 20 mg p.o. q.h.s. on September 10 due to exacerbation of psychosis. On 09/14 we are adding Zyprexa 5 mg at AM Reason for continued inpatient stay Substantial Risk for: inability to function, rapid decompensation and med/psych decompensation Time Spent With Patient Time: Total time managing care of this patient today _20___ minutes.
[2024-09-15 08:00] VITALS: BP 152/72; PULSE 66; RESP 16; TEMP 36.2; O2SAT 97
[2024-09-15] MEDS: Magnesium Oxide 400 MG TABLET PO ×2 (08:43→19:24)
[2024-09-15] MEDS: OLANZapine 5 MG TABLET PO (08:43)
[2024-09-15 08:45] VITALS: BP 152/72
[2024-09-15] MEDS: NIFEdipine ER 30 MG TAB.ER.24 PO (08:45)
[2024-09-15] MEDS: Gabapentin 100 MG CAPSULE 200 MG PO (10:39)
[2024-09-15] MEDS: Ibuprofen 800 MG TABLET PO ×2 (10:40→19:23)
[2024-09-15] MEDS: OLANZapine ODT 10 MG TAB.RAPDIS 20 MG TRANSLINGU (19:24)
[2024-09-15 20:50] VITALS: BP 133/74; PULSE 72; RESP 16; TEMP 36.2; O2SAT 98
[2024-09-16 05:51] LABS: Glucose, Whole Blood 108 mg/dL (60-115)
[2024-09-16] MEDS: Ibuprofen 800 MG TABLET PO ×3 (06:03→20:26)
[2024-09-16] MEDS: Magnesium Oxide 400 MG TABLET PO ×2 (08:41→20:18)
[2024-09-16] MEDS: OLANZapine 5 MG TABLET PO (08:41)
--- NOTE | 2024-09-16 14:17 | HO.PSYCHPN ---
Subjective Subjective Date of Service: 09/16/24 Reason For Visit: Schizoaffective Subjective Notes: Conditional Voluntary Interim History: The nursing staff reported the patient had been compliant with medications irritable at times mostly in the afternoon she eating well and she slept 6 hours. On interview the patient reported that she wants to be discharged and move out to [place] she does not want to go back to her detention. We increased her Zyprexa up to 5 mg in the morning and 20 at night. Mental Status Exam Mental Status Exam Patient Appearance: Appropriate Patient Orientation: Person and Situation Level of Consciousness: Awake and Appropriate Patient Behavior: Guarded and Passive Mood Description: Withdrawn Affect Description: Constricted Patient Cognition Impaired: Yes Ability to Follow Directions: Good Speech Pattern: Clear Hallucinations: Auditory Delusions: Paranoid Ideation and Ideas of Reference Thought Process: Distracted and Slowed Thinking Thought Content: positive for [place] and positive for Poverty of Content Judgement: Poor Diagnostics Vital Signs (24Hr): Vital Signs - 24 hr 09/15/24 20:50 Temperature 97.2 F Pulse Rate 72 Respiratory Rate 16 Blood Pressure 133/74 Pulse Oximetry 98 Oxygen Delivery Method Room Air Labs 09/02/24 09:08 09/02/24 09:08 Labs: Laboratory Results - last 48 hr 09/15/24 09/16/24 06:06 05:46 POC Glucose 99 108 Medications Medications Current Medications Acetaminophen (Acetaminophen 325 Mg Tablet) 650 mg PO Q6H PRN PRN Reason: Headache/Pain Mild Scale (1-3) Last Admin: 09/13/24 22:01 Dose: 650 mg Al Hydroxide/Mg Hydroxide (Magnesium Hydrox/Alum Hydrox 30 Ml Oral.Susp) 30 ml PO Q6H PRN PRN Reason: Heartburn/Nausea Last Admin: 09/13/24 09:17 Dose: 30 ml Docusate Sodium (Docusate Sodium 100 Mg Capsule) 100 mg PO BID PRN PRN Reason: Constipation Gabapentin (Gabapentin 100 Mg Capsule) 200 mg PO BEDTIME [facility]HAD Last Admin: 09/15/24 19:33 Dose: Not Given Gabapentin (Gabapentin 100 Mg Capsule) 200 mg PO TID PRN PRN Reason: malissa/anxiety Last Admin: 09/15/24 10:39 Dose: 200 mg Hydroxyzine HCl (Hydroxyzine Hcl 25 Mg Tablet) 25 mg PO Q6H PRN PRN Reason: Anxiety Last Admin: 09/14/24 13:08 Dose: 25 mg Ibuprofen (Ibuprofen 800 Mg Tablet) 800 mg PO Q8H PRN PRN Reason: Pain, Severe (Pain Scale 7-10) Last Admin: 09/16/24 06:03 Dose: 800 mg Magnesium Hydroxide (Milk Of Magnesia 30 Ml Oral.Susp) 30 ml PO DAILY PRN PRN Reason: Constipation Magnesium Oxide (Magnesium Oxide 400 Mg Tablet) 400 mg PO BID [facility] Last Admin: 09/16/24 08:41 Dose: 400 mg Melatonin (Melatonin 3 Mg Tablet) 3 mg PO BEDTIME MRX1 [facility] Last Admin: 09/15/24 19:33 Dose: Not Given Nifedipine (Nifedipine Er 30 Mg Tab.Er.24) 30 mg PO DAILY [facility]; Protocol Last Admin: 09/16/24 08:46 Dose: Not Given Olanzapine (Olanzapine 5 Mg Tablet) 5 mg PO Q4H PRN PRN Reason: psychosis Last Admin: 09/10/24 11:02 Dose: 5 mg Olanzapine (Olanzapine Odt 10 Mg Tab.Rapdis) 20 mg TRANSLINGU BEDTIME [facility] Last Admin: 09/15/24 19:24 Dose: 20 mg Olanzapine (Olanzapine 10 Mg Vial) 20 mg IM BEDTIME PRN PRN Reason: refusal of PO Zyprexa Last Admin: 09/13/24 20:29 Dose: 20 mg Olanzapine (Olanzapine 5 Mg Tablet) 5 mg PO DAILY [facility] Last Admin: 09/16/24 08:41 Dose: 5 mg Omeprazole (Omeprazole 20 Mg Capsule.Dr) 20 mg PO BID@0630,1630 PRN PRN Reason: GERD Oxybutynin Chloride (Oxybutynin Chloride Er 5 Mg Tab.Er.24) 5 mg PO BEDTIME [facility] Last Admin: 09/15/24 19:33 Dose: Not Given Senna (Sennosides 8.6 Mg Tablet) 17.2 mg PO BEDTIME PRN PRN Reason: Constipation Allergies Allergies Allergy/AdvReac Type Severity Reaction Status Date / Time nut - unspecified Allergy Unknown Verified 08/25/24 15:31 Assessment & Plan Assessment & Plan (1) Schizoaffective disorder: Status: Acute Code(s): F25.9 - Schizoaffective disorder, unspecified Plan The patient is an elderly female with a past history of schizoaffective disorder, resident of a detention who was admitted to the emergency room of a local hospital for exacerbation of psychosis. The patient remains grossly psychotic unable to provide any information on admission. Plan 1. Gather collateral information. 2. Continue section 12 B. we have to filed for Section 7 and 8 on August 28, the case was continued for next week in the hopes of discharging her early next week Unfortunately, we went to court on 09/09 and she was committed. 3. We will try to gather her medication reconciliation form. On the meantime she has Zyprexa p.r.n. that it seems that it was effective as per report of the emergency room. 4. Continue 15 minute checks. 5. We got her [facility] order and we are going to put IM backup. So far the patient had been compliant with psychiatric treatment. 6. Zyprexa was increased up to 15 mg p.o. q.h.s. on September 03. She started responding and she looks much better. Her Zyprexa was increased up to 20 mg p.o. q.h.s. on September 10 due to exacerbation of psychosis. On 09/14 we are adding Zyprexa 5 mg at AM Reason for continued inpatient stay Substantial Risk for: inability to function, rapid decompensation and med/psych decompensation Time Spent With Patient Time: Total time managing care of this patient today __20__ minutes.
[2024-09-16] MEDS: Magnesium Hydrox/Alum Hydrox 30 ML ORAL.SUSP PO (18:16)
[2024-09-16 20:00] VITALS: BP 174/79; PULSE 86; RESP 16; TEMP 37.2; O2SAT 98
[2024-09-16] MEDS: Gabapentin 100 MG CAPSULE 200 MG PO (20:19)
[2024-09-16] MEDS: oxyBUTYnin chloride ER 5 MG TAB.ER.24 PO (20:20)
[2024-09-16] MEDS: OLANZapine ODT 10 MG TAB.RAPDIS 20 MG TRANSLINGU (20:21)
[2024-09-17 11:00] VITALS: BP 148/88; PULSE 94; RESP 16; O2SAT 96
[2024-09-17 11:09] VITALS: BP 148/88
[2024-09-17] MEDS: NIFEdipine ER 30 MG TAB.ER.24 PO (11:09)
[2024-09-17] MEDS: Magnesium Oxide 400 MG TABLET PO ×2 (11:09→20:33)
[2024-09-17] MEDS: OLANZapine 5 MG TABLET PO ×3 (11:10→23:58)
[2024-09-17] MEDS: Ibuprofen 800 MG TABLET PO ×2 (11:15→20:33)
--- NOTE | 2024-09-17 16:38 | P.PNPSI_ITS ---
Subjective Subjective Date of Service: 09/17/24 Reason For Visit: Schizoaffective Subjective Notes: [place] Order, Section 7 and Section 8 Interim History: The nursing staff reported that she has refused vital signs she had been self dialogue in labile slept 6 hours. On interview the patient reported that she is going back to [place], delusional. Mental Status Exam Mental Status Exam Patient Appearance: Appropriate Patient Orientation: Person and Situation Level of Consciousness: Awake and Appropriate Patient Behavior: Guarded and Passive Mood Description: Withdrawn Affect Description: Labile Patient Cognition Impaired: Yes Ability to Follow Directions: Good Speech Pattern: Clear Hallucinations: Auditory Delusions: Paranoid Ideation and Ideas of Reference Thought Process: Illogical and Distracted Thought Content: positive for [place] and positive for Loose Associations Judgement: Poor Diagnostics Vital Signs (24Hr): Vital Signs - 24 hr 09/16/24 20:00 09/17/24 11:00 09/17/24 11:09 Temperature 98.9 F Pulse Rate 86 94 Respiratory Rate 16 16 Blood Pressure 174/79 H 148/88 H 148/88 H Pulse Oximetry 98 96 Oxygen Delivery Method Room Air Room Air Labs 09/02/24 09:08 09/02/24 09:08 Labs: Laboratory Results - last 48 hr 09/16/24 05:46 POC Glucose 108 Medications Medications Current Medications Acetaminophen (Acetaminophen 325 Mg Tablet) 650 mg PO Q6H PRN PRN Reason: Headache/Pain Mild Scale (1-3) Last Admin: 09/13/24 22:01 Dose: 650 mg Al Hydroxide/Mg Hydroxide (Magnesium Hydrox/Alum Hydrox 30 Ml Oral.Susp) 30 ml PO Q6H PRN PRN Reason: Heartburn/Nausea Last Admin: 09/16/24 18:16 Dose: 30 ml Docusate Sodium (Docusate Sodium 100 Mg Capsule) 100 mg PO BID PRN PRN Reason: Constipation Gabapentin (Gabapentin 100 Mg Capsule) 200 mg PO BEDTIME [facility]HAD Last Admin: 09/16/24 20:19 Dose: 200 mg Gabapentin (Gabapentin 100 Mg Capsule) 200 mg PO TID PRN PRN Reason: malissa/anxiety Last Admin: 09/15/24 10:39 Dose: 200 mg Hydroxyzine HCl (Hydroxyzine Hcl 25 Mg Tablet) 25 mg PO Q6H PRN PRN Reason: Anxiety Last Admin: 09/14/24 13:08 Dose: 25 mg Ibuprofen (Ibuprofen 800 Mg Tablet) 800 mg PO Q8H PRN PRN Reason: Pain, Severe (Pain Scale 7-10) Last Admin: 09/17/24 11:15 Dose: 800 mg Magnesium Hydroxide (Milk Of Magnesia 30 Ml Oral.Susp) 30 ml PO DAILY PRN PRN Reason: Constipation Magnesium Oxide (Magnesium Oxide 400 Mg Tablet) 400 mg PO BID [facility] Last Admin: 09/17/24 11:09 Dose: 400 mg Melatonin (Melatonin 3 Mg Tablet) 3 mg PO BEDTIME MRX1 [facility] Last Admin: 09/16/24 22:50 Dose: Not Given Nifedipine (Nifedipine Er 30 Mg Tab.Er.24) 30 mg PO DAILY [facility]; Protocol Last Admin: 09/17/24 11:09 Dose: 30 mg Olanzapine (Olanzapine 5 Mg Tablet) 5 mg PO Q4H PRN PRN Reason: psychosis Last Admin: 09/10/24 11:02 Dose: 5 mg Olanzapine (Olanzapine Odt 10 Mg Tab.Rapdis) 20 mg TRANSLINGU BEDTIME [facility] Last Admin: 09/16/24 20:21 Dose: 20 mg Olanzapine (Olanzapine 10 Mg Vial) 20 mg IM BEDTIME PRN PRN Reason: refusal of PO Zyprexa Last Admin: 09/13/24 20:29 Dose: 20 mg Olanzapine (Olanzapine 5 Mg Tablet) 5 mg PO DAILY [facility] Last Admin: 09/17/24 11:10 Dose: 5 mg Omeprazole (Omeprazole 20 Mg Capsule.Dr) 20 mg PO BID@0630,1630 PRN PRN Reason: GERD Oxybutynin Chloride (Oxybutynin Chloride Er 5 Mg Tab.Er.24) 5 mg PO BEDTIME [facility] Last Admin: 09/16/24 20:20 Dose: 5 mg Senna (Sennosides 8.6 Mg Tablet) 17.2 mg PO BEDTIME PRN PRN Reason: Constipation Allergies Allergies Allergy/AdvReac Type Severity Reaction Status Date / Time nut - unspecified Allergy Unknown Verified 08/25/24 15:31 Assessment & Plan Assessment & Plan (1) Schizoaffective disorder: Status: Acute Code(s): F25.9 - Schizoaffective disorder, unspecified Plan The patient is an elderly female with a past history of schizoaffective disorder, resident of a jail who was admitted to the emergency room of a local hospital for exacerbation of psychosis. The patient remains grossly psychotic unable to provide any information on admission. Plan 1. Gather collateral information. 2. Continue section 12 B. we have to filed for Section 7 and 8 on August 28, the case was continued for next week in the hopes of discharging her early next week Unfortunately, we went to court on 09/09 and she was committed. 3. We will try to gather her medication reconciliation form. On the meantime she has Zyprexa p.r.n. that it seems that it was effective as per report of the emergency room. 4. Continue 15 minute checks. 5. We got her [facility] order and we are going to put IM backup. So far the patient had been compliant with psychiatric treatment. 6. Zyprexa was increased up to 15 mg p.o. q.h.s. on September 03. She started responding and she looks much better. Her Zyprexa was increased up to 20 mg p.o. q.h.s. on September 10 due to exacerbation of psychosis. On 09/14 we are adding Zyprexa 5 mg at AM Reason for continued inpatient stay Substantial Risk for: inability to function, rapid decompensation and med/psych decompensation Time Spent With Patient Time: Total time managing care of this patient today __20__ minutes.
[2024-09-17] MEDS: Acetaminophen 325 MG TABLET 650 MG PO (18:02)
[2024-09-17] MEDS: hydrOXYzine HCL 25 MG TABLET PO (18:03)
[2024-09-17 20:00] VITALS: BP 128/69; PULSE 91; RESP 18; TEMP 36.6; O2SAT 92
[2024-09-17] MEDS: OLANZapine 10 MG VIAL 20 MG IM (20:16)
[2024-09-17] MEDS: Melatonin 3 MG TABLET PO ×2 (20:31→21:55)
[2024-09-17] MEDS: Gabapentin 100 MG CAPSULE 200 MG PO (20:32)
[2024-09-17] MEDS: oxyBUTYnin chloride ER 5 MG TAB.ER.24 PO (20:33)
[2024-09-17] MEDS: Magnesium Hydrox/Alum Hydrox 30 ML ORAL.SUSP PO (20:35)
[2024-09-18] MEDS: Acetaminophen 325 MG TABLET 650 MG PO ×2 (02:43→13:14)
[2024-09-18] MEDS: Gabapentin 100 MG CAPSULE 200 MG PO ×3 (06:06→20:41)
[2024-09-18 06:41] LABS: Glucose, Whole Blood 165 mg/dL (60-115)
[2024-09-18 08:00] VITALS: BP 145/69; PULSE 89; RESP 18; TEMP 36.2; O2SAT 96
[2024-09-18] MEDS: OLANZapine 5 MG TABLET PO ×3 (08:49→13:13)
[2024-09-18] MEDS: Magnesium Oxide 400 MG TABLET PO ×2 (08:50→20:43)
[2024-09-18] MEDS: Ibuprofen 800 MG TABLET PO ×2 (08:50→20:41)
[2024-09-18] MEDS: NIFEdipine ER 30 MG TAB.ER.24 PO (08:50)
--- NOTE | 2024-09-18 13:52 | HO.PSYCHPN ---
Subjective Subjective Date of Service: 09/18/24 Reason For Visit: Schizoaffective Subjective Notes: [facility] Order, Section 7 and Section 8 Interim History: The nursing staff reported the patient had been labile guarded she received Zyprexa IM last night. She slept 2 hours. She reported to the nurse that she wants to have Clozaril but her court order only authorized Zyprexa to 30 mg a day that we are maximizing today. The social worker masters reported that we are going to have a meeting tomorrow. On interview the patient denies new symptoms still psychotic still willing to go to [place] leave the [facility] Mental Status Exam Mental Status Exam Patient Appearance: Appropriate Patient Orientation: Person Level of Consciousness: Restless Patient Behavior: Appropriate Mood Description: Calm Affect Description: Constricted Patient Cognition Impaired: Yes Ability to Follow Directions: Good Speech Pattern: Clear Hallucinations: Auditory Delusions: Paranoid Ideation and Ideas of Reference Thought Process: Distracted and Slowed Thinking Thought Content: positive for [place] and positive for Poverty of Content Judgement: Poor Diagnostics Vital Signs (24Hr): Vital Signs - 24 hr 09/17/24 20:00 Temperature 97.8 F Pulse Rate 91 Respiratory Rate 18 Blood Pressure 128/69 Pulse Oximetry 92 Oxygen Delivery Method Room Air Labs 09/02/24 09:08 09/02/24 09:08 Labs: Laboratory Results - last 48 hr 09/18/24 06:04 POC Glucose 165 H Medications Medications Current Medications Acetaminophen (Acetaminophen 325 Mg Tablet) 650 mg PO Q6H PRN PRN Reason: Headache/Pain Mild Scale (1-3) Last Admin: 09/18/24 13:14 Dose: 650 mg Al Hydroxide/Mg Hydroxide (Magnesium Hydrox/Alum Hydrox 30 Ml Oral.Susp) 30 ml PO Q6H PRN PRN Reason: Heartburn/Nausea Last Admin: 09/17/24 20:35 Dose: 30 ml Docusate Sodium (Docusate Sodium 100 Mg Capsule) 100 mg PO BID PRN PRN Reason: Constipation Gabapentin (Gabapentin 100 Mg Capsule) 200 mg PO BEDTIME [facility] Last Admin: 09/17/24 20:32 Dose: 200 mg Gabapentin (Gabapentin 100 Mg Capsule) 200 mg PO TID PRN PRN Reason: malissa/anxiety Last Admin: 09/18/24 13:13 Dose: 200 mg Hydroxyzine HCl (Hydroxyzine Hcl 25 Mg Tablet) 25 mg PO Q6H PRN PRN Reason: Anxiety Last Admin: 09/17/24 18:03 Dose: 25 mg Ibuprofen (Ibuprofen 800 Mg Tablet) 800 mg PO Q8H PRN PRN Reason: Pain, Severe (Pain Scale 7-10) Last Admin: 09/18/24 08:50 Dose: 800 mg Magnesium Hydroxide (Milk Of Magnesia 30 Ml Oral.Susp) 30 ml PO DAILY PRN PRN Reason: Constipation Magnesium Oxide (Magnesium Oxide 400 Mg Tablet) 400 mg PO BID [facility] Last Admin: 09/18/24 08:50 Dose: 400 mg Melatonin (Melatonin 3 Mg Tablet) 3 mg PO BEDTIME MRX1 [facility] Last Admin: 09/17/24 21:55 Dose: 3 mg Nifedipine (Nifedipine Er 30 Mg Tab.Er.24) 30 mg PO DAILY [facility]; Protocol Last Admin: 09/18/24 08:50 Dose: 30 mg Olanzapine (Olanzapine 5 Mg Tablet) 5 mg PO Q4H PRN PRN Reason: psychosis Last Admin: 09/18/24 08:49 Dose: 5 mg Olanzapine (Olanzapine Odt 10 Mg Tab.Rapdis) 20 mg TRANSLINGU BEDTIME [facility] Last Admin: 09/17/24 20:34 Dose: Not Given Olanzapine (Olanzapine 10 Mg Vial) 20 mg IM BEDTIME PRN PRN Reason: refusal of PO Zyprexa Last Admin: 09/17/24 20:16 Dose: 20 mg Olanzapine (Olanzapine 5 Mg Tablet) 5 mg PO BID@0830,1330 [facility] Last Admin: 09/18/24 13:13 Dose: 5 mg Omeprazole (Omeprazole 20 Mg Capsule.Dr) 20 mg PO BID@0630,1630 PRN PRN Reason: GERD Oxybutynin Chloride (Oxybutynin Chloride Er 5 Mg Tab.Er.24) 5 mg PO BEDTIME [facility] Last Admin: 09/17/24 20:33 Dose: 5 mg Senna (Sennosides 8.6 Mg Tablet) 17.2 mg PO BEDTIME PRN PRN Reason: Constipation Allergies Allergies Allergy/AdvReac Type Severity Reaction Status Date / Time nut - unspecified Allergy Unknown Verified 08/25/24 15:31 Assessment & Plan Assessment & Plan (1) Schizoaffective disorder: Status: Acute Code(s): F25.9 - Schizoaffective disorder, unspecified Plan The patient is an elderly female with a past history of schizoaffective disorder, resident of a long term who was admitted to the emergency room of a local hospital for exacerbation of psychosis. The patient remains grossly psychotic unable to provide any information on admission. Plan 1. Gather collateral information. 2. Continue section 12 B. we have to filed for Section 7 and 8 on August 28, the case was continued for next week in the hopes of discharging her early next week Unfortunately, we went to court on 09/09 and she was committed. 3. We will try to gather her medication reconciliation form. On the meantime she has Zyprexa p.r.n. that it seems that it was effective as per report of the emergency room. 4. Continue 15 minute checks. 5. We got her Ontiveros order and we are going to put IM backup. So far the patient had been compliant with psychiatric treatment. 6. Zyprexa was increased up to 15 mg p.o. q.h.s. on September 03. She started responding and she looks much better. Her Zyprexa was increased up to 20 mg p.o. q.h.s. on September 10 due to exacerbation of psychosis. On 09/14 we are adding Zyprexa 5 mg at AM Reason for continued inpatient stay Substantial Risk for: inability to function, rapid decompensation and med/psych decompensation Time Spent With Patient Time: Total time managing care of this patient today __20__ minutes.
[2024-09-18 19:35] VITALS: BP 114/59; PULSE 88; TEMP 36.2; O2SAT 95
[2024-09-18] MEDS: OLANZapine ODT 10 MG TAB.RAPDIS 20 MG TRANSLINGU (20:43)
[2024-09-18] MEDS: traZODone HCL 100 MG TABLET PO (20:43)
[2024-09-18] MEDS: oxyBUTYnin chloride ER 5 MG TAB.ER.24 PO (20:43)
[2024-09-18] MEDS: Melatonin 3 MG TABLET PO (20:44)
[2024-09-19 07:55] VITALS: BP 107/63; PULSE 75; RESP 18; TEMP 36.8; O2SAT 95
--- NOTE | 2024-09-19 08:44 | HO.PSYCHPN ---
Subjective Subjective Date of Service: 09/19/24 Reason For Visit: Schizoaffective Subjective Notes: Conditional Voluntary Interim History: Pt slept through the night. She is somewhat irritable when meeting with this consumer loan underwriter. She denies any concerns and states she just want to rest and this consumer loan underwriter preventing her from doing so. She denies SI/HI. She suspicious, paranoid but no overt delusional content reported while meeting with me. She has reported to nursing , taking medications. Medication Compliance: Yes Diagnostics Vital Signs (24Hr): Vital Signs - 24 hr 09/18/24 19:35 Temperature 97.2 F Pulse Rate 88 Blood Pressure 114/59 L Pulse Oximetry 95 Oxygen Delivery Method Room Air Labs 09/02/24 09:08 09/02/24 09:08 Labs: Laboratory Results - last 48 hr 09/18/24 06:04 POC Glucose 165 H Medications Medications Current Medications Acetaminophen (Acetaminophen 325 Mg Tablet) 650 mg PO Q6H PRN PRN Reason: Headache/Pain Mild Scale (1-3) Last Admin: 09/18/24 13:14 Dose: 650 mg Al Hydroxide/Mg Hydroxide (Magnesium Hydrox/Alum Hydrox 30 Ml Oral.Susp) 30 ml PO Q6H PRN PRN Reason: Heartburn/Nausea Last Admin: 09/17/24 20:35 Dose: 30 ml Docusate Sodium (Docusate Sodium 100 Mg Capsule) 100 mg PO BID PRN PRN Reason: Constipation Gabapentin (Gabapentin 100 Mg Capsule) 200 mg PO BEDTIME [facility] Last Admin: 09/18/24 20:41 Dose: 200 mg Gabapentin (Gabapentin 100 Mg Capsule) 200 mg PO TID PRN PRN Reason: malissa/anxiety Last Admin: 09/18/24 13:13 Dose: 200 mg Hydroxyzine HCl (Hydroxyzine Hcl 25 Mg Tablet) 25 mg PO Q6H PRN PRN Reason: Anxiety Last Admin: 09/17/24 18:03 Dose: 25 mg Ibuprofen (Ibuprofen 800 Mg Tablet) 800 mg PO Q8H PRN PRN Reason: Pain, Severe (Pain Scale 7-10) Last Admin: 09/18/24 20:41 Dose: 800 mg Magnesium Hydroxide (Milk Of Magnesia 30 Ml Oral.Susp) 30 ml PO DAILY PRN PRN Reason: Constipation Magnesium Oxide (Magnesium Oxide 400 Mg Tablet) 400 mg PO BID [facility] Last Admin: 09/18/24 20:43 Dose: 400 mg Melatonin (Melatonin 3 Mg Tablet) 3 mg PO BEDTIME MRX1 [facility] Last Admin: 09/19/24 03:02 Dose: Not Given Nifedipine (Nifedipine Er 30 Mg Tab.Er.24) 30 mg PO DAILY [facility]; Protocol Last Admin: 09/18/24 08:50 Dose: 30 mg Olanzapine (Olanzapine 5 Mg Tablet) 5 mg PO Q4H PRN PRN Reason: psychosis Last Admin: 09/18/24 08:49 Dose: 5 mg Olanzapine (Olanzapine Odt 10 Mg Tab.Rapdis) 20 mg TRANSLINGU BEDTIME [facility] Last Admin: 09/18/24 20:43 Dose: 20 mg Olanzapine (Olanzapine 10 Mg Vial) 20 mg IM BEDTIME PRN PRN Reason: refusal of PO Zyprexa Last Admin: 09/17/24 20:16 Dose: 20 mg Olanzapine (Olanzapine 5 Mg Tablet) 5 mg PO BID@0830,1330 [facility] Last Admin: 09/18/24 13:13 Dose: 5 mg Omeprazole (Omeprazole 20 Mg Capsule.Dr) 20 mg PO BID@0630,1630 PRN PRN Reason: GERD Oxybutynin Chloride (Oxybutynin Chloride Er 5 Mg Tab.Er.24) 5 mg PO BEDTIME [facility] Last Admin: 09/18/24 20:43 Dose: 5 mg Senna (Sennosides 8.6 Mg Tablet) 17.2 mg PO BEDTIME PRN PRN Reason: Constipation Trazodone HCl (Trazodone Hcl 100 Mg Tablet) 100 mg PO BEDTIME [facility] Last Admin: 09/18/24 20:43 Dose: 100 mg Allergies Allergies Allergy/AdvReac Type Severity Reaction Status Date / Time nut - unspecified Allergy Unknown Verified 08/25/24 15:31 Assessment & Plan Assessment & Plan (1) Schizoaffective disorder: Status: Acute Code(s): F25.9 - Schizoaffective disorder, unspecified Plan The patient is an elderly female with a past history of schizoaffective disorder, resident of a skilled nursing who was admitted to the emergency room of a local hospital for exacerbation of psychosis. The patient remains grossly psychotic unable to provide any information on admission. Plan 09/19/24 continue tx. Reason for continued inpatient stay Substantial Risk for: inability to function Time Spent With Patient Time: Total time managing care of this patient today ____ minutes.
[2024-09-19] MEDS: OLANZapine 5 MG TABLET PO ×2 (09:54→13:34)
[2024-09-19] MEDS: Magnesium Oxide 400 MG TABLET PO ×2 (09:54→20:19)
[2024-09-19] MEDS: Ibuprofen 800 MG TABLET PO ×2 (09:55→20:19)
[2024-09-19] MEDS: NIFEdipine ER 30 MG TAB.ER.24 PO (09:55)
[2024-09-19 19:15] VITALS: BP 121/74; PULSE 90; TEMP 37.4; O2SAT 94
[2024-09-19] MEDS: OLANZapine ODT 10 MG TAB.RAPDIS 20 MG TRANSLINGU (20:19)
[2024-09-19] MEDS: Magnesium Hydrox/Alum Hydrox 30 ML ORAL.SUSP PO (20:23)
[2024-09-20] MEDS: OLANZapine 5 MG TABLET PO ×3 (00:20→12:45)
[2024-09-20] MEDS: Gabapentin 100 MG CAPSULE 200 MG PO ×2 (00:20→19:46)
[2024-09-20 06:25] LABS: Glucose, Whole Blood 107 mg/dL (60-115)
[2024-09-20 08:00] VITALS: BP 144/70; PULSE 90; RESP 18; TEMP 36.3; O2SAT 94
[2024-09-20] MEDS: Magnesium Oxide 400 MG TABLET PO ×2 (10:39→19:44)
[2024-09-20] MEDS: NIFEdipine ER 30 MG TAB.ER.24 PO (10:40)
[2024-09-20] MEDS: Ibuprofen 800 MG TABLET PO ×2 (12:43→19:52)
--- NOTE | 2024-09-20 13:48 | HO.PSYCHPN ---
Subjective Subjective Date of Service: 09/20/24 Reason For Visit: Schizoaffective Subjective Notes: [place] Order, Section 7 and Section 8 Interim History: The nursing staff reported the patient remains elusive agitated at times. The occupational therapist reported that even though that she has elusive she is more organized on groups. The manager social work reported they had a meeting with the [facility] and she walked away. On interview the patient reports that she wants to go to a [facility] home. Mental Status Exam Mental Status Exam Patient Appearance: Unkempt Patient Orientation: Person and Situation Level of Consciousness: Awake and Appropriate Patient Behavior: Guarded and Passive Mood Description: Suspicious Affect Description: Withdrawn Patient Cognition Impaired: Yes Ability to Follow Directions: Good Speech Pattern: Clear and Impoverished Hallucinations: Auditory Delusions: Paranoid Ideation and Ideas of Reference Thought Process: Distracted and Slowed Thinking Thought Content: positive for [place] and positive for Poverty of Content Judgement: Fair Diagnostics Vital Signs (24Hr): Vital Signs - 24 hr 09/19/24 19:15 09/20/24 08:00 Temperature 99.3 F 97.3 F Pulse Rate 90 90 Respiratory Rate 18 Blood Pressure 121/74 144/70 H Pulse Oximetry 94 94 Oxygen Delivery Method Room Air Room Air Labs 09/02/24 09:08 09/02/24 09:08 Labs: Laboratory Results - last 48 hr 09/20/24 05:49 POC Glucose 107 Medications Medications Current Medications Acetaminophen (Acetaminophen 325 Mg Tablet) 650 mg PO Q6H PRN PRN Reason: Headache/Pain Mild Scale (1-3) Last Admin: 09/18/24 13:14 Dose: 650 mg Al Hydroxide/Mg Hydroxide (Magnesium Hydrox/Alum Hydrox 30 Ml Oral.Susp) 30 ml PO Q6H PRN PRN Reason: Heartburn/Nausea Last Admin: 09/19/24 20:23 Dose: 30 ml Docusate Sodium (Docusate Sodium 100 Mg Capsule) 100 mg PO BID PRN PRN Reason: Constipation Gabapentin (Gabapentin 100 Mg Capsule) 200 mg PO BEDTIME [facility] Last Admin: 09/19/24 20:23 Dose: Not Given Gabapentin (Gabapentin 100 Mg Capsule) 200 mg PO TID PRN PRN Reason: malissa/anxiety Last Admin: 09/20/24 00:20 Dose: 200 mg Hydroxyzine HCl (Hydroxyzine Hcl 25 Mg Tablet) 25 mg PO Q6H PRN PRN Reason: Anxiety Last Admin: 09/17/24 18:03 Dose: 25 mg Ibuprofen (Ibuprofen 800 Mg Tablet) 800 mg PO Q8H PRN PRN Reason: Pain, Severe (Pain Scale 7-10) Last Admin: 09/20/24 12:43 Dose: 800 mg Magnesium Hydroxide (Milk Of Magnesia 30 Ml Oral.Susp) 30 ml PO DAILY PRN PRN Reason: Constipation Magnesium Oxide (Magnesium Oxide 400 Mg Tablet) 400 mg PO BID [facility] Last Admin: 09/20/24 10:39 Dose: 400 mg Melatonin (Melatonin 3 Mg Tablet) 3 mg PO BEDTIME MRX1 [facility] Last Admin: 09/19/24 20:23 Dose: Not Given Nifedipine (Nifedipine Er 30 Mg Tab.Er.24) 30 mg PO DAILY [facility]; Protocol Last Admin: 09/20/24 10:40 Dose: 30 mg Olanzapine (Olanzapine 5 Mg Tablet) 5 mg PO Q4H PRN PRN Reason: psychosis Last Admin: 09/20/24 00:20 Dose: 5 mg Olanzapine (Olanzapine Odt 10 Mg Tab.Rapdis) 20 mg TRANSLINGU BEDTIME [facility] Last Admin: 09/19/24 20:19 Dose: 20 mg Olanzapine (Olanzapine 10 Mg Vial) 20 mg IM BEDTIME PRN PRN Reason: refusal of PO Zyprexa Last Admin: 09/17/24 20:16 Dose: 20 mg Olanzapine (Olanzapine 5 Mg Tablet) 5 mg PO BID@0830,1330 [facility] Last Admin: 09/20/24 12:45 Dose: 5 mg Omeprazole (Omeprazole 20 Mg Capsule.Dr) 20 mg PO BID@0630,1630 PRN PRN Reason: GERD Oxybutynin Chloride (Oxybutynin Chloride Er 5 Mg Tab.Er.24) 5 mg PO BEDTIME [facility] Last Admin: 09/19/24 20:23 Dose: Not Given Senna (Sennosides 8.6 Mg Tablet) 17.2 mg PO BEDTIME PRN PRN Reason: Constipation Trazodone HCl (Trazodone Hcl 100 Mg Tablet) 100 mg PO BEDTIME [facility] Last Admin: 09/19/24 20:26 Dose: Not Given Allergies Allergies Allergy/AdvReac Type Severity Reaction Status Date / Time nut - unspecified Allergy Unknown Verified 08/25/24 15:31 Assessment & Plan Assessment & Plan (1) Schizoaffective disorder: Status: Acute Code(s): F25.9 - Schizoaffective disorder, unspecified Plan The patient is an elderly female with a past history of schizoaffective disorder, resident of a [facility] who was admitted to the emergency room of a local hospital for exacerbation of psychosis. The patient remains grossly psychotic unable to provide any information on admission. Plan 09/19/24 continue tx. 09/20 continue same treatment Reason for continued inpatient stay Substantial Risk for: inability to function, rapid decompensation and med/psych decompensation Time Spent With Patient Time: Total time managing care of this patient today __20__ minutes.
[2024-09-20] MEDS: Acetaminophen 325 MG TABLET 650 MG PO (14:55)
[2024-09-20] MEDS: oxyBUTYnin chloride ER 5 MG TAB.ER.24 PO (19:44)
[2024-09-20] MEDS: traZODone HCL 100 MG TABLET PO (19:46)
[2024-09-20] MEDS: Melatonin 3 MG TABLET PO (19:47)
[2024-09-20] MEDS: OLANZapine ODT 10 MG TAB.RAPDIS 20 MG TRANSLINGU (19:52)
[2024-09-20] MEDS: Magnesium Hydrox/Alum Hydrox 30 ML ORAL.SUSP PO (19:52)
[2024-09-20 20:00] VITALS: BP 132/71; PULSE 89; RESP 16; TEMP 36.9; O2SAT 95
[2024-09-21 07:00] LABS: Glucose, Whole Blood 123 mg/dL (60-115)
[2024-09-21 10:45] VITALS: BP 161/78; PULSE 86; RESP 18; TEMP 37.1; O2SAT 97
[2024-09-21] MEDS: Ibuprofen 800 MG TABLET PO ×2 (10:46→20:19)
[2024-09-21] MEDS: Magnesium Oxide 400 MG TABLET PO ×2 (10:47→20:20)
[2024-09-21] MEDS: NIFEdipine ER 30 MG TAB.ER.24 PO (10:48)
[2024-09-21] MEDS: OLANZapine 5 MG TABLET PO (10:48)
--- NOTE | 2024-09-21 14:30 | P.PNPSI_ITS ---
Subjective Subjective Date of Service: 09/21/24 Reason For Visit: Schizoaffective Subjective Notes: Conditional Voluntary Interim History: Patient was seen and discussed in rounds today. Records and plans were reviewed. She has been taking her medications selectively. She does have IM coverage for nighttime refusals. She continues to be disorganized and confused. She was asking about her discharge on ?Monday?. I am not sure that is the plan. No changes were made today Review of Systems Review of Systems Yes all other systems are reviewed and are negative Mental Status Exam Mental Status Exam Patient Appearance: Unkempt Patient Orientation: Person and Situation Level of Consciousness: Awake and Appropriate Patient Behavior: Guarded and Passive Mood Description: Suspicious Affect Description: Withdrawn Patient Cognition Impaired: Yes Ability to Follow Directions: Good Speech Pattern: Clear and Impoverished Hallucinations: Auditory Delusions: Paranoid Ideation and Ideas of Reference Thought Process: Distracted and Slowed Thinking Thought Content: positive for [place] and positive for Poverty of Content Judgement: Fair Diagnostics Vital Signs (24Hr): Vital Signs - 24 hr 09/20/24 20:00 09/21/24 10:45 Temperature 98.4 F 98.8 F Pulse Rate 89 86 Respiratory Rate 16 18 Blood Pressure 132/71 161/78 H Pulse Oximetry 95 97 Oxygen Delivery Method Room Air Room Air Labs 09/02/24 09:08 09/02/24 09:08 Labs: Laboratory Results - last 48 hr 09/20/24 09/21/24 05:49 06:53 POC Glucose 107 123 H Medications Medications Current Medications Acetaminophen (Acetaminophen 325 Mg Tablet) 650 mg PO Q6H PRN PRN Reason: Headache/Pain Mild Scale (1-3) Last Admin: 09/20/24 14:55 Dose: 650 mg Al Hydroxide/Mg Hydroxide (Magnesium Hydrox/Alum Hydrox 30 Ml Oral.Susp) 30 ml PO Q6H PRN PRN Reason: Heartburn/Nausea Last Admin: 09/20/24 19:52 Dose: 30 ml Docusate Sodium (Docusate Sodium 100 Mg Capsule) 100 mg PO BID PRN PRN Reason: Constipation Gabapentin (Gabapentin 100 Mg Capsule) 200 mg PO BEDTIME [facility] Last Admin: 09/20/24 19:46 Dose: 200 mg Gabapentin (Gabapentin 100 Mg Capsule) 200 mg PO TID PRN PRN Reason: malissa/anxiety Last Admin: 09/20/24 00:20 Dose: 200 mg Hydroxyzine HCl (Hydroxyzine Hcl 25 Mg Tablet) 25 mg PO Q6H PRN PRN Reason: Anxiety Last Admin: 09/17/24 18:03 Dose: 25 mg Ibuprofen (Ibuprofen 800 Mg Tablet) 800 mg PO Q8H PRN PRN Reason: Pain, Severe (Pain Scale 7-10) Last Admin: 09/21/24 10:46 Dose: 800 mg Magnesium Hydroxide (Milk Of Magnesia 30 Ml Oral.Susp) 30 ml PO DAILY PRN PRN Reason: Constipation Magnesium Oxide (Magnesium Oxide 400 Mg Tablet) 400 mg PO BID [facility] Last Admin: 09/21/24 10:47 Dose: 400 mg Melatonin (Melatonin 3 Mg Tablet) 3 mg PO BEDTIME MRX1 [facility] Last Admin: 09/21/24 00:46 Dose: Not Given Nifedipine (Nifedipine Er 30 Mg Tab.Er.24) 30 mg PO DAILY [facility]; Protocol Last Admin: 09/21/24 10:48 Dose: 30 mg Olanzapine (Olanzapine 5 Mg Tablet) 5 mg PO Q4H PRN PRN Reason: psychosis Last Admin: 09/20/24 00:20 Dose: 5 mg Olanzapine (Olanzapine Odt 10 Mg Tab.Rapdis) 20 mg TRANSLINGU BEDTIME [facility] Last Admin: 09/20/24 19:52 Dose: 20 mg Olanzapine (Olanzapine 10 Mg Vial) 20 mg IM BEDTIME PRN PRN Reason: refusal of PO Zyprexa Last Admin: 09/17/24 20:16 Dose: 20 mg Olanzapine (Olanzapine 5 Mg Tablet) 5 mg PO BID@0830,1330 [facility] Last Admin: 09/21/24 13:07 Dose: Not Given Omeprazole (Omeprazole 20 Mg Capsule.Dr) 20 mg PO BID@0630,1630 PRN PRN Reason: GERD Oxybutynin Chloride (Oxybutynin Chloride Er 5 Mg Tab.Er.24) 5 mg PO BEDTIME [facility] Last Admin: 09/20/24 19:44 Dose: 5 mg Senna (Sennosides 8.6 Mg Tablet) 17.2 mg PO BEDTIME PRN PRN Reason: Constipation Trazodone HCl (Trazodone Hcl 100 Mg Tablet) 100 mg PO BEDTIME [facility] Last Admin: 09/20/24 19:46 Dose: 100 mg Allergies Allergies Allergy/AdvReac Type Severity Reaction Status Date / Time nut - unspecified Allergy Unknown Verified 08/25/24 15:31 Assessment & Plan Assessment & Plan (1) Schizoaffective disorder: Status: Acute Code(s): F25.9 - Schizoaffective disorder, unspecified Plan The patient is an elderly female with a past history of schizoaffective disorder, resident of a custodial who was admitted to the emergency room of a local hospital for exacerbation of psychosis. The patient remains grossly psychotic unable to provide any information on admission. Plan 09/19/24 continue tx. 09/20 continue same treatment 09/21: Continue current regimen and plans Reason for continued inpatient stay Substantial Risk for: inability to function and med/psych decompensation Time Spent With Patient Time: Total time managing care of this patient today ____ minutes.
[2024-09-21 20:00] VITALS: BP 171/90; PULSE 97; RESP 18; TEMP 37.4; O2SAT 98
[2024-09-21] MEDS: OLANZapine 10 MG VIAL 20 MG IM (20:16)
[2024-09-21] MEDS: traZODone HCL 100 MG TABLET PO (20:20)
[2024-09-21] MEDS: oxyBUTYnin chloride ER 5 MG TAB.ER.24 PO (20:21)
[2024-09-21] MEDS: Melatonin 3 MG TABLET PO (20:21)
[2024-09-21] MEDS: Gabapentin 100 MG CAPSULE 200 MG PO (20:23)
[2024-09-21] MEDS: Magnesium Hydrox/Alum Hydrox 30 ML ORAL.SUSP PO (20:42)
[2024-09-22] MEDS: Ibuprofen 800 MG TABLET PO ×2 (10:59→21:27)
[2024-09-22] MEDS: Magnesium Oxide 400 MG TABLET PO ×2 (11:00→21:20)
[2024-09-22] MEDS: OLANZapine 5 MG TABLET PO (11:01)
--- NOTE | 2024-09-22 11:25 | HO.PSYCHPN ---
Subjective Subjective Date of Service: 09/22/24 Reason For Visit: Schizoaffective Subjective Notes: Conditional Voluntary Interim History: Patient was seen and discussed in rounds today. Records and plans were reviewed. She would not acknowledge that she was Kate and would go by another name. She was laying in bed. Acknowledges my presence. No behavioral issues otherwise. No complaints or side effects. No dangerous behaviors. No changes were made today Review of Systems Review of Systems Yes Unobtainable due to mental status Mental Status Exam Mental Status Exam Narrative: In today's visit she is alert, responsive and states that she is doing well. She would not respond to other questions. No acute signs of psychosis. No dangerous behaviors reported. Diagnostics Vital Signs (24Hr): Vital Signs - 24 hr 09/21/24 20:00 Temperature 99.3 F Pulse Rate 97 Respiratory Rate 18 Blood Pressure 171/90 H Pulse Oximetry 98 Oxygen Delivery Method Room Air Labs 09/02/24 09:08 09/02/24 09:08 Labs: Laboratory Results - last 48 hr 09/21/24 06:53 POC Glucose 123 H Medications Medications Current Medications Acetaminophen (Acetaminophen 325 Mg Tablet) 650 mg PO Q6H PRN PRN Reason: Headache/Pain Mild Scale (1-3) Last Admin: 09/20/24 14:55 Dose: 650 mg Al Hydroxide/Mg Hydroxide (Magnesium Hydrox/Alum Hydrox 30 Ml Oral.Susp) 30 ml PO Q6H PRN PRN Reason: Heartburn/Nausea Last Admin: 09/21/24 20:42 Dose: 30 ml Docusate Sodium (Docusate Sodium 100 Mg Capsule) 100 mg PO BID PRN PRN Reason: Constipation Gabapentin (Gabapentin 100 Mg Capsule) 200 mg PO BEDTIME [facility] Last Admin: 09/21/24 20:23 Dose: 200 mg Gabapentin (Gabapentin 100 Mg Capsule) 200 mg PO TID PRN PRN Reason: malissa/anxiety Last Admin: 09/20/24 00:20 Dose: 200 mg Hydroxyzine HCl (Hydroxyzine Hcl 25 Mg Tablet) 25 mg PO Q6H PRN PRN Reason: Anxiety Last Admin: 09/17/24 18:03 Dose: 25 mg Ibuprofen (Ibuprofen 800 Mg Tablet) 800 mg PO Q8H PRN PRN Reason: Pain, Severe (Pain Scale 7-10) Last Admin: 09/22/24 10:59 Dose: 800 mg Magnesium Hydroxide (Milk Of Magnesia 30 Ml Oral.Susp) 30 ml PO DAILY PRN PRN Reason: Constipation Magnesium Oxide (Magnesium Oxide 400 Mg Tablet) 400 mg PO BID [facility] Last Admin: 09/22/24 11:00 Dose: 400 mg Melatonin (Melatonin 3 Mg Tablet) 3 mg PO BEDTIME MRX1 [facility] Last Admin: 09/21/24 21:56 Dose: Not Given Nifedipine (Nifedipine Er 30 Mg Tab.Er.24) 30 mg PO DAILY [facility]; Protocol Last Admin: 09/22/24 11:00 Dose: Not Given Olanzapine (Olanzapine 5 Mg Tablet) 5 mg PO Q4H PRN PRN Reason: psychosis Last Admin: 09/20/24 00:20 Dose: 5 mg Olanzapine (Olanzapine Odt 10 Mg Tab.Rapdis) 20 mg TRANSLINGU BEDTIME [facility] Last Admin: 09/21/24 21:19 Dose: Not Given Olanzapine (Olanzapine 10 Mg Vial) 20 mg IM BEDTIME PRN PRN Reason: refusal of PO Zyprexa Last Admin: 09/21/24 20:16 Dose: 20 mg Olanzapine (Olanzapine 5 Mg Tablet) 5 mg PO BID@0830,1330 [facility] Last Admin: 09/22/24 11:01 Dose: 5 mg Omeprazole (Omeprazole 20 Mg Capsule.Dr) 20 mg PO BID@0630,1630 PRN PRN Reason: GERD Oxybutynin Chloride (Oxybutynin Chloride Er 5 Mg Tab.Er.24) 5 mg PO BEDTIME [facility] Last Admin: 09/21/24 20:21 Dose: 5 mg Senna (Sennosides 8.6 Mg Tablet) 17.2 mg PO BEDTIME PRN PRN Reason: Constipation Trazodone HCl (Trazodone Hcl 100 Mg Tablet) 100 mg PO BEDTIME [facility] Last Admin: 09/21/24 20:20 Dose: 100 mg Allergies Allergies Allergy/AdvReac Type Severity Reaction Status Date / Time nut - unspecified Allergy Unknown Verified 08/25/24 15:31 Assessment & Plan Assessment & Plan (1) Schizoaffective disorder: Status: Acute Code(s): F25.9 - Schizoaffective disorder, unspecified Plan The patient is an elderly female with a past history of schizoaffective disorder, resident of a [facility] who was admitted to the emergency room of a local hospital for exacerbation of psychosis. The patient remains grossly psychotic unable to provide any information on admission. Plan 09/19/24 continue tx. 09/20 continue same treatment 09/21: Continue current regimen and plans 09/22: Continue current regimen and plans Reason for continued inpatient stay Substantial Risk for: med/psych decompensation Time Spent With Patient Time: Total time managing care of this patient today ____ minutes.
[2024-09-22 20:00] VITALS: BP 137/71; PULSE 96; RESP 16; TEMP 36.3; O2SAT 96
[2024-09-22] MEDS: OLANZapine ODT 10 MG TAB.RAPDIS 20 MG TRANSLINGU (21:20)
[2024-09-22] MEDS: Gabapentin 100 MG CAPSULE 200 MG PO (21:20)
[2024-09-22] MEDS: traZODone HCL 100 MG TABLET PO (21:20)
[2024-09-22] MEDS: oxyBUTYnin chloride ER 5 MG TAB.ER.24 PO (21:21)
[2024-09-23 09:20] VITALS: BP 128/61
[2024-09-23] MEDS: NIFEdipine ER 30 MG TAB.ER.24 PO (09:20)
[2024-09-23] MEDS: Magnesium Oxide 400 MG TABLET PO ×2 (09:20→21:14)
[2024-09-23] MEDS: OLANZapine 5 MG TABLET PO ×2 (09:20→15:18)
[2024-09-23] MEDS: Gabapentin 100 MG CAPSULE 200 MG PO ×2 (09:20→21:13)
[2024-09-23] MEDS: Ibuprofen 800 MG TABLET PO ×2 (09:21→21:18)
[2024-09-23 09:26] VITALS: BP 128/61; PULSE 71; RESP 16; TEMP 36.4; O2SAT 95
--- NOTE | 2024-09-23 15:10 | HO.PSYCHPN ---
Subjective Subjective Date of Service: 09/23/24 Reason For Visit: Schizoaffective Subjective Notes: [place] Order, Section 7 and Section 8 Interim History: The nursing staff reported that she had been guarded irritable at times she is better in the evening. She slept 6 hours. The perinatal social worker reported that we are going to give a meeting next with her senior care. On interview the patient reports that she is doing okay still paranoid. Mental Status Exam Mental Status Exam Patient Appearance: Well Grooomed and Appropriate Patient Orientation: Person and Situation Level of Consciousness: Awake Patient Behavior: Cooperative Mood Description: Calm Affect Description: Constricted and Labile Patient Cognition Impaired: Yes Ability to Follow Directions: Good Speech Pattern: Clear Hallucinations: None Delusions: Paranoid Ideation and Ideas of Reference Thought Process: Racing and Illogical Thought Content: positive for [place] and positive for Circumstantial Judgement: Poor Diagnostics Vital Signs (24Hr): Vital Signs - 24 hr 09/22/24 20:00 09/23/24 09:20 09/23/24 09:26 Temperature 97.4 F 97.5 F Pulse Rate 96 71 Respiratory Rate 16 16 Blood Pressure 137/71 128/61 128/61 Pulse Oximetry 96 95 Oxygen Delivery Method Room Air Room Air Labs 09/02/24 09:08 09/02/24 09:08 Medications Medications Current Medications Acetaminophen (Acetaminophen 325 Mg Tablet) 650 mg PO Q6H PRN PRN Reason: Headache/Pain Mild Scale (1-3) Last Admin: 09/20/24 14:55 Dose: 650 mg Al Hydroxide/Mg Hydroxide (Magnesium Hydrox/Alum Hydrox 30 Ml Oral.Susp) 30 ml PO Q6H PRN PRN Reason: Heartburn/Nausea Last Admin: 09/21/24 20:42 Dose: 30 ml Docusate Sodium (Docusate Sodium 100 Mg Capsule) 100 mg PO BID PRN PRN Reason: Constipation Gabapentin (Gabapentin 100 Mg Capsule) 200 mg PO BEDTIME [facility]HAD Last Admin: 09/22/24 21:20 Dose: 200 mg Gabapentin (Gabapentin 100 Mg Capsule) 200 mg PO TID PRN PRN Reason: malissa/anxiety Last Admin: 09/23/24 09:20 Dose: 200 mg Hydroxyzine HCl (Hydroxyzine Hcl 25 Mg Tablet) 25 mg PO Q6H PRN PRN Reason: Anxiety Last Admin: 09/17/24 18:03 Dose: 25 mg Ibuprofen (Ibuprofen 800 Mg Tablet) 800 mg PO Q8H PRN PRN Reason: Pain, Severe (Pain Scale 7-10) Last Admin: 09/23/24 09:21 Dose: 800 mg Magnesium Hydroxide (Milk Of Magnesia 30 Ml Oral.Susp) 30 ml PO DAILY PRN PRN Reason: Constipation Magnesium Oxide (Magnesium Oxide 400 Mg Tablet) 400 mg PO BID [facility] Last Admin: 09/23/24 09:20 Dose: 400 mg Melatonin (Melatonin 3 Mg Tablet) 3 mg PO BEDTIME MRX1 [facility] Last Admin: 09/22/24 23:26 Dose: Not Given Nifedipine (Nifedipine Er 30 Mg Tab.Er.24) 30 mg PO DAILY [facility]; Protocol Last Admin: 09/23/24 09:20 Dose: 30 mg Olanzapine (Olanzapine 5 Mg Tablet) 5 mg PO Q4H PRN PRN Reason: psychosis Last Admin: 09/20/24 00:20 Dose: 5 mg Olanzapine (Olanzapine Odt 10 Mg Tab.Rapdis) 20 mg TRANSLINGU BEDTIME [facility] Last Admin: 09/22/24 21:20 Dose: 20 mg Olanzapine (Olanzapine 10 Mg Vial) 20 mg IM BEDTIME PRN PRN Reason: refusal of PO Zyprexa Last Admin: 09/21/24 20:16 Dose: 20 mg Olanzapine (Olanzapine 5 Mg Tablet) 5 mg PO BID@0830,1330 [facility] Last Admin: 09/23/24 14:30 Dose: Not Given Omeprazole (Omeprazole 20 Mg Capsule.Dr) 20 mg PO BID@0630,1630 PRN PRN Reason: GERD Oxybutynin Chloride (Oxybutynin Chloride Er 5 Mg Tab.Er.24) 5 mg PO BEDTIME [facility] Last Admin: 09/22/24 21:21 Dose: 5 mg Senna (Sennosides 8.6 Mg Tablet) 17.2 mg PO BEDTIME PRN PRN Reason: Constipation Trazodone HCl (Trazodone Hcl 100 Mg Tablet) 100 mg PO BEDTIME [facility] Last Admin: 09/22/24 21:20 Dose: 100 mg Allergies Allergies Allergy/AdvReac Type Severity Reaction Status Date / Time nut - unspecified Allergy Unknown Verified 08/25/24 15:31 Assessment & Plan Assessment & Plan (1) Schizoaffective disorder: Status: Acute Code(s): F25.9 - Schizoaffective disorder, unspecified Plan The patient is an elderly female with a past history of schizoaffective disorder, resident of a senior care who was admitted to the emergency room of a local hospital for exacerbation of psychosis. The patient remains grossly psychotic unable to provide any information on admission. Plan 09/19/24 continue tx. 09/20 continue same treatment 09/21: Continue current regimen and plans 09/22: Continue current regimen and plans 07/24 continue same treatment Reason for continued inpatient stay Substantial Risk for: inability to function, rapid decompensation and med/psych decompensation Time Spent With Patient Time: Total time managing care of this patient today __20__ minutes.
[2024-09-23 20:00] VITALS: BP 142/81; PULSE 80; RESP 18; TEMP 36.6; O2SAT 94
[2024-09-23] MEDS: traZODone HCL 100 MG TABLET PO (21:13)
[2024-09-23] MEDS: Melatonin 3 MG TABLET PO (21:14)
[2024-09-23] MEDS: OLANZapine ODT 10 MG TAB.RAPDIS 20 MG TRANSLINGU (21:15)
[2024-09-23] MEDS: oxyBUTYnin chloride ER 5 MG TAB.ER.24 PO (21:15)
[2024-09-24] MEDS: Ibuprofen 800 MG TABLET PO (06:07)
[2024-09-24 06:49] LABS: Glucose, Whole Blood 135 mg/dL (60-115)
[2024-09-24] MEDS: Magnesium Oxide 400 MG TABLET PO ×2 (10:24→20:39)
[2024-09-24] MEDS: Magnesium Hydrox/Alum Hydrox 30 ML ORAL.SUSP PO (12:43)
[2024-09-24] MEDS: OLANZapine 5 MG TABLET PO (12:43)
--- NOTE | 2024-09-24 13:10 | P.PNPSI_ITS ---
Subjective Subjective Date of Service: 09/24/24 Reason For Visit: Schizoaffective Subjective Notes: [place] Order, Section 7 and Section 8 Interim History: The nursing staff reported that she still psychotic, irritable at times. We put backup Zyprexa IM only at night since she was initially on Zyprexa at HS. We are not putting Zyprexa backup IM during the day because it over-sedated her. On interview the patient reported that she prefers to have IM. We are going to other backup IM in the morning Mental Status Exam Mental Status Exam Patient Appearance: Appropriate Patient Orientation: Person and Situation Level of Consciousness: Awake and Appropriate Patient Behavior: Guarded and Passive Mood Description: Withdrawn Affect Description: Constricted Patient Cognition Impaired: Yes Ability to Follow Directions: Good Speech Pattern: Clear Hallucinations: Auditory Delusions: Paranoid Ideation and Ideas of Reference Thought Process: Distracted and Slowed Thinking Thought Content: positive for [place] and positive for Poverty of Content Judgement: Poor Diagnostics Vital Signs (24Hr): Vital Signs - 24 hr 09/23/24 20:00 Temperature 97.8 F Pulse Rate 80 Respiratory Rate 18 Blood Pressure 142/81 H Pulse Oximetry 94 Oxygen Delivery Method Room Air Labs 09/02/24 09:08 09/02/24 09:08 Labs: Laboratory Results - last 48 hr 09/24/24 06:04 POC Glucose 135 H Medications Medications Current Medications Acetaminophen (Acetaminophen 325 Mg Tablet) 650 mg PO Q6H PRN PRN Reason: Headache/Pain Mild Scale (1-3) Last Admin: 09/20/24 14:55 Dose: 650 mg Al Hydroxide/Mg Hydroxide (Magnesium Hydrox/Alum Hydrox 30 Ml Oral.Susp) 30 ml PO Q6H PRN PRN Reason: Heartburn/Nausea Last Admin: 09/24/24 12:43 Dose: 30 ml Docusate Sodium (Docusate Sodium 100 Mg Capsule) 100 mg PO BID PRN PRN Reason: Constipation Gabapentin (Gabapentin 100 Mg Capsule) 200 mg PO BEDTIME [facility]AD Last Admin: 09/23/24 21:13 Dose: 200 mg Gabapentin (Gabapentin 100 Mg Capsule) 200 mg PO TID PRN PRN Reason: malissa/anxiety Last Admin: 09/23/24 09:20 Dose: 200 mg Hydroxyzine HCl (Hydroxyzine Hcl 25 Mg Tablet) 25 mg PO Q6H PRN PRN Reason: Anxiety Last Admin: 09/17/24 18:03 Dose: 25 mg Ibuprofen (Ibuprofen 800 Mg Tablet) 800 mg PO Q8H PRN PRN Reason: Pain, Severe (Pain Scale 7-10) Last Admin: 09/24/24 06:07 Dose: 800 mg Magnesium Hydroxide (Milk Of Magnesia 30 Ml Oral.Susp) 30 ml PO DAILY PRN PRN Reason: Constipation Magnesium Oxide (Magnesium Oxide 400 Mg Tablet) 400 mg PO BID [facility] Last Admin: 09/24/24 10:24 Dose: 400 mg Melatonin (Melatonin 3 Mg Tablet) 3 mg PO BEDTIME MRX1 [facility] Last Admin: 09/24/24 05:12 Dose: Not Given Nifedipine (Nifedipine Er 30 Mg Tab.Er.24) 30 mg PO DAILY [facility]; Protocol Last Admin: 09/24/24 10:49 Dose: Not Given Olanzapine (Olanzapine 5 Mg Tablet) 5 mg PO Q4H PRN PRN Reason: psychosis Last Admin: 09/20/24 00:20 Dose: 5 mg Olanzapine (Olanzapine Odt 10 Mg Tab.Rapdis) 20 mg TRANSLINGU BEDTIME [facility] Last Admin: 09/23/24 21:15 Dose: 20 mg Olanzapine (Olanzapine 10 Mg Vial) 20 mg IM BEDTIME PRN PRN Reason: refusal of PO Zyprexa Last Admin: 09/21/24 20:16 Dose: 20 mg Olanzapine (Olanzapine 5 Mg Tablet) 5 mg PO BID@0830,1330 [facility] Last Admin: 09/24/24 12:43 Dose: 5 mg Omeprazole (Omeprazole 20 Mg Capsule.Dr) 20 mg PO BID@0630,1630 PRN PRN Reason: GERD Oxybutynin Chloride (Oxybutynin Chloride Er 5 Mg Tab.Er.24) 5 mg PO BEDTIME [facility] Last Admin: 09/23/24 21:15 Dose: 5 mg Senna (Sennosides 8.6 Mg Tablet) 17.2 mg PO BEDTIME PRN PRN Reason: Constipation Trazodone HCl (Trazodone Hcl 100 Mg Tablet) 100 mg PO BEDTIME [facility] Last Admin: 09/23/24 21:13 Dose: 100 mg Allergies Allergies Allergy/AdvReac Type Severity Reaction Status Date / Time nut - unspecified Allergy Unknown Verified 08/25/24 15:31 Assessment & Plan Assessment & Plan (1) Schizoaffective disorder: Status: Acute Code(s): F25.9 - Schizoaffective disorder, unspecified Plan The patient is an elderly female with a past history of schizoaffective disorder, resident of a fdc who was admitted to the emergency room of a local hospital for exacerbation of psychosis. The patient remains grossly psychotic unable to provide any information on admission. Plan 1. As per court order we are increasing Zyprexa up to the maximum 30 mg a day. 5 mg p.o. b.i.d. and 20 mg p.o. q.h.s.. 2. Backup IM 20 mg IM if patient refused q.h.s. and 5 mg IM if the patient refuses in the morning. We are not going to put backup at noon time. 3. Waiting for improvement, this moment she is at the highest dose that the court order allows to use on her on Zyprexa. Reason for continued inpatient stay Substantial Risk for: inability to function, rapid decompensation and med/psych decompensation Time Spent With Patient Time: Total time managing care of this patient today ___20_ minutes.
[2024-09-24 20:00] VITALS: BP 160/67; PULSE 84; RESP 16; TEMP 36.6; O2SAT 95
[2024-09-24] MEDS: traZODone HCL 100 MG TABLET PO (20:39)
[2024-09-24] MEDS: Melatonin 3 MG TABLET PO (20:39)
[2024-09-24] MEDS: oxyBUTYnin chloride ER 5 MG TAB.ER.24 PO (20:40)
[2024-09-24] MEDS: Gabapentin 100 MG CAPSULE 200 MG PO (20:40)
[2024-09-24] MEDS: OLANZapine ODT 10 MG TAB.RAPDIS 20 MG TRANSLINGU (20:42)
[2024-09-25 06:12] LABS: Glucose, Whole Blood 119 mg/dL (60-115)
[2024-09-25 08:00] VITALS: BP 127/68; PULSE 90; RESP 18; TEMP 36.3; O2SAT 96
[2024-09-25 08:56] VITALS: BP 127/68
[2024-09-25] MEDS: Magnesium Oxide 400 MG TABLET PO ×2 (08:56→19:57)
[2024-09-25] MEDS: OLANZapine 5 MG TABLET PO ×2 (08:56→12:41)
[2024-09-25] MEDS: NIFEdipine ER 30 MG TAB.ER.24 PO (08:56)
[2024-09-25] MEDS: Ibuprofen 800 MG TABLET PO ×2 (10:41→19:56)
--- NOTE | 2024-09-25 12:46 | P.PNPSI_ITS ---
Subjective Subjective Date of Service: 09/25/24 Reason For Visit: Schizoaffective Subjective Notes: Conditional Voluntary Interim History: Patient was seen and discussed in rounds today. Records and plans were reviewed. She continues to be labile, irritable and confused. Taking medications selectively but has IM backup in the evenings. No complaints. No dangerous behaviors. No changes were made today Review of Systems Review of Systems Yes Unobtainable due to mental status Mental Status Exam Mental Status Exam Patient Appearance: Appropriate Patient Orientation: Person and Situation Level of Consciousness: Awake and Appropriate Patient Behavior: Guarded and Passive Mood Description: Withdrawn Affect Description: Constricted Patient Cognition Impaired: Yes Ability to Follow Directions: Good Speech Pattern: Clear Hallucinations: Auditory Delusions: Paranoid Ideation and Ideas of Reference Thought Process: Distracted and Slowed Thinking Thought Content: positive for [place] and positive for Poverty of Content Judgement: Poor Diagnostics Vital Signs (24Hr): Vital Signs - 24 hr 09/24/24 20:00 09/25/24 08:00 09/25/24 08:56 Temperature 97.9 F 97.3 F Pulse Rate 84 90 Respiratory Rate 16 18 Blood Pressure 160/67 H 127/68 127/68 Pulse Oximetry 95 96 Oxygen Delivery Method Room Air Room Air Labs 09/02/24 09:08 09/02/24 09:08 Labs: Laboratory Results - last 48 hr 09/24/24 09/25/24 06:04 05:42 POC Glucose 135 H 119 H Medications Medications Current Medications Acetaminophen (Acetaminophen 325 Mg Tablet) 650 mg PO Q6H PRN PRN Reason: Headache/Pain Mild Scale (1-3) Last Admin: 09/20/24 14:55 Dose: 650 mg Al Hydroxide/Mg Hydroxide (Magnesium Hydrox/Alum Hydrox 30 Ml Oral.Susp) 30 ml PO Q6H PRN PRN Reason: Heartburn/Nausea Last Admin: 09/24/24 12:43 Dose: 30 ml Docusate Sodium (Docusate Sodium 100 Mg Capsule) 100 mg PO BID PRN PRN Reason: Constipation Gabapentin (Gabapentin 100 Mg Capsule) 200 mg PO BEDTIME [facility] Last Admin: 09/24/24 20:40 Dose: 200 mg Gabapentin (Gabapentin 100 Mg Capsule) 200 mg PO TID PRN PRN Reason: malissa/anxiety Last Admin: 09/23/24 09:20 Dose: 200 mg Hydroxyzine HCl (Hydroxyzine Hcl 25 Mg Tablet) 25 mg PO Q6H PRN PRN Reason: Anxiety Last Admin: 09/17/24 18:03 Dose: 25 mg Ibuprofen (Ibuprofen 800 Mg Tablet) 800 mg PO Q8H PRN PRN Reason: Pain, Severe (Pain Scale 7-10) Last Admin: 09/25/24 10:41 Dose: 800 mg Magnesium Hydroxide (Milk Of Magnesia 30 Ml Oral.Susp) 30 ml PO DAILY PRN PRN Reason: Constipation Magnesium Oxide (Magnesium Oxide 400 Mg Tablet) 400 mg PO BID [facility] Last Admin: 09/25/24 08:56 Dose: 400 mg Melatonin (Melatonin 3 Mg Tablet) 3 mg PO BEDTIME MRX1 [facility] Last Admin: 09/24/24 23:21 Dose: Not Given Nifedipine (Nifedipine Er 30 Mg Tab.Er.24) 30 mg PO DAILY [facility]; Protocol Last Admin: 09/25/24 08:56 Dose: 30 mg Olanzapine (Olanzapine 5 Mg Tablet) 5 mg PO Q4H PRN PRN Reason: psychosis Last Admin: 09/20/24 00:20 Dose: 5 mg Olanzapine (Olanzapine Odt 10 Mg Tab.Rapdis) 20 mg TRANSLINGU BEDTIME [facility] Last Admin: 09/24/24 20:42 Dose: 20 mg Olanzapine (Olanzapine 10 Mg Vial) 20 mg IM BEDTIME PRN PRN Reason: refusal of PO Zyprexa Last Admin: 09/21/24 20:16 Dose: 20 mg Olanzapine (Olanzapine 5 Mg Tablet) 5 mg PO BID@0830,1330 [facility] Last Admin: 09/25/24 12:41 Dose: 5 mg Olanzapine (Olanzapine 10 Mg Vial) 5 mg IM DAILY PRN PRN Reason: REFUSAL OF ZYPREXA 5 MG AM Omeprazole (Omeprazole 20 Mg Capsule.Dr) 20 mg PO BID@0630,1630 PRN PRN Reason: GERD Oxybutynin Chloride (Oxybutynin Chloride Er 5 Mg Tab.Er.24) 5 mg PO BEDTIME [facility] Last Admin: 09/24/24 20:40 Dose: 5 mg Senna (Sennosides 8.6 Mg Tablet) 17.2 mg PO BEDTIME PRN PRN Reason: Constipation Trazodone HCl (Trazodone Hcl 100 Mg Tablet) 100 mg PO BEDTIME [facility] Last Admin: 09/24/24 20:39 Dose: 100 mg Allergies Allergies Allergy/AdvReac Type Severity Reaction Status Date / Time nut - unspecified Allergy Unknown Verified 08/25/24 15:31 Assessment & Plan Assessment & Plan (1) Schizoaffective disorder: Status: Acute Code(s): F25.9 - Schizoaffective disorder, unspecified Plan The patient is an elderly female with a past history of schizoaffective disorder, resident of a custodial who was admitted to the emergency room of a local hospital for exacerbation of psychosis. The patient remains grossly psychotic unable to provide any information on admission. 09/25: Continue current regimen and plans Plan 1. As per court order we are increasing Zyprexa up to the maximum 30 mg a day. 5 mg p.o. b.i.d. and 20 mg p.o. q.h.s.. 2. Backup IM 20 mg IM if patient refused q.h.s. and 5 mg IM if the patient refuses in the morning. We are not going to put backup at noon time. 3. Waiting for improvement, this moment she is at the highest dose that the court order allows to use on her on Zyprexa. Reason for continued inpatient stay Substantial Risk for: inability to function Time Spent With Patient Time: Total time managing care of this patient today ____ minutes.
[2024-09-25] MEDS: Acetaminophen 325 MG TABLET 650 MG PO (16:27)
[2024-09-25 19:49] VITALS: BP 168/81; PULSE 83; RESP 16; TEMP 36.2; O2SAT 96
[2024-09-25] MEDS: Gabapentin 100 MG CAPSULE 200 MG PO (19:56)
[2024-09-25] MEDS: OLANZapine ODT 10 MG TAB.RAPDIS 20 MG TRANSLINGU (19:57)
[2024-09-25] MEDS: traZODone HCL 100 MG TABLET PO (19:57)
[2024-09-25] MEDS: Melatonin 3 MG TABLET PO (19:57)
[2024-09-25] MEDS: oxyBUTYnin chloride ER 5 MG TAB.ER.24 PO (19:58)
[2024-09-26 06:08] LABS: Glucose, Whole Blood 99 mg/dL (60-115)
[2024-09-26 08:11] VITALS: BP 147/70; PULSE 84; RESP 18; TEMP 36.3; O2SAT 96
[2024-09-26] MEDS: Magnesium Oxide 400 MG TABLET PO ×2 (08:12→20:32)
[2024-09-26] MEDS: NIFEdipine ER 30 MG TAB.ER.24 PO (08:12)
[2024-09-26] MEDS: OLANZapine 5 MG TABLET PO ×2 (08:12→13:06)
[2024-09-26] MEDS: Ibuprofen 800 MG TABLET PO ×2 (08:12→20:31)
[2024-09-26] MEDS: Acetaminophen 325 MG TABLET 650 MG PO (13:05)
--- NOTE | 2024-09-26 14:05 | P.PNPSI_ITS ---
Subjective Subjective Date of Service: 09/26/24 Reason For Visit: Schizoaffective Subjective Notes: [place] Order, Section 7 and Section 8 Healthcare Proxy: Yes Guardianship: Yes Interim History: The nursing staff reported the patient has been compliant with medications as per court order. She had been demanding of new clothes and she slept 6 hours. On interview the patient reports that she wants to go back to a intermediate even though that she has a long term. The 7th grade social studies teacher contact the guardian and she wants her back at the long term and she is chronically complaining that she wants to be in a intermediate. No changes in mental status, this moment she is at the highest dose of the court order for Zyprexa. Mental Status Exam Mental Status Exam Patient Appearance: Appropriate Patient Orientation: Person and Situation Level of Consciousness: Awake and Appropriate Patient Behavior: Guarded and Passive Mood Description: Withdrawn Affect Description: Constricted Patient Cognition Impaired: Yes Ability to Follow Directions: Good Speech Pattern: Clear Hallucinations: None Delusions: Paranoid Ideation and Ideas of Reference Thought Process: Distracted and Slowed Thinking Thought Content: positive for [place] and positive for Poverty of Content Judgement: Poor Diagnostics Vital Signs (24Hr): Vital Signs - 24 hr 09/25/24 19:49 09/26/24 08:11 Temperature 97.1 F 97.4 F Pulse Rate 83 84 Respiratory Rate 16 18 Blood Pressure 168/81 H 147/70 H Pulse Oximetry 96 96 Oxygen Delivery Method Room Air Room Air Labs 09/02/24 09:08 09/02/24 09:08 Labs: Laboratory Results - last 48 hr 09/25/24 09/26/24 05:42 06:03 POC Glucose 119 H 99 Medications Medications Current Medications Acetaminophen (Acetaminophen 325 Mg Tablet) 650 mg PO Q6H PRN PRN Reason: Headache/Pain Mild Scale (1-3) Last Admin: 09/26/24 13:05 Dose: 650 mg Al Hydroxide/Mg Hydroxide (Magnesium Hydrox/Alum Hydrox 30 Ml Oral.Susp) 30 ml PO Q6H PRN PRN Reason: Heartburn/Nausea Last Admin: 09/24/24 12:43 Dose: 30 ml Docusate Sodium (Docusate Sodium 100 Mg Capsule) 100 mg PO BID PRN PRN Reason: Constipation Gabapentin (Gabapentin 100 Mg Capsule) 200 mg PO BEDTIME [facility] Last Admin: 09/25/24 19:56 Dose: 200 mg Gabapentin (Gabapentin 100 Mg Capsule) 200 mg PO TID PRN PRN Reason: malissa/anxiety Last Admin: 09/23/24 09:20 Dose: 200 mg Hydroxyzine HCl (Hydroxyzine Hcl 25 Mg Tablet) 25 mg PO Q6H PRN PRN Reason: Anxiety Last Admin: 09/17/24 18:03 Dose: 25 mg Ibuprofen (Ibuprofen 800 Mg Tablet) 800 mg PO Q8H PRN PRN Reason: Pain, Severe (Pain Scale 7-10) Last Admin: 09/26/24 08:12 Dose: 800 mg Magnesium Hydroxide (Milk Of Magnesia 30 Ml Oral.Susp) 30 ml PO DAILY PRN PRN Reason: Constipation Magnesium Oxide (Magnesium Oxide 400 Mg Tablet) 400 mg PO BID [facility] Last Admin: 09/26/24 08:12 Dose: 400 mg Melatonin (Melatonin 3 Mg Tablet) 3 mg PO BEDTIME MRX1 [facility] Last Admin: 09/25/24 22:43 Dose: Not Given Nifedipine (Nifedipine Er 30 Mg Tab.Er.24) 30 mg PO DAILY [facility]; Protocol Last Admin: 09/26/24 08:12 Dose: 30 mg Olanzapine (Olanzapine 5 Mg Tablet) 5 mg PO Q4H PRN PRN Reason: psychosis Last Admin: 09/20/24 00:20 Dose: 5 mg Olanzapine (Olanzapine Odt 10 Mg Tab.Rapdis) 20 mg TRANSLINGU BEDTIME [facility] Last Admin: 09/25/24 19:57 Dose: 20 mg Olanzapine (Olanzapine 10 Mg Vial) 20 mg IM BEDTIME PRN PRN Reason: refusal of PO Zyprexa Last Admin: 09/21/24 20:16 Dose: 20 mg Olanzapine (Olanzapine 5 Mg Tablet) 5 mg PO BID@0830,1330 [facility] Last Admin: 09/26/24 13:06 Dose: 5 mg Olanzapine (Olanzapine 10 Mg Vial) 5 mg IM DAILY PRN PRN Reason: REFUSAL OF ZYPREXA 5 MG AM Omeprazole (Omeprazole 20 Mg Capsule.Dr) 20 mg PO BID@0630,1630 PRN PRN Reason: GERD Oxybutynin Chloride (Oxybutynin Chloride Er 5 Mg Tab.Er.24) 5 mg PO BEDTIME [facility] Last Admin: 09/25/24 19:58 Dose: 5 mg Senna (Sennosides 8.6 Mg Tablet) 17.2 mg PO BEDTIME PRN PRN Reason: Constipation Trazodone HCl (Trazodone Hcl 100 Mg Tablet) 100 mg PO BEDTIME [facility] Last Admin: 09/25/24 19:57 Dose: 100 mg Allergies Allergies Allergy/AdvReac Type Severity Reaction Status Date / Time nut - unspecified Allergy Unknown Verified 08/25/24 15:31 Assessment & Plan Assessment & Plan (1) Schizoaffective disorder: Status: Acute Code(s): F25.9 - Schizoaffective disorder, unspecified Plan The patient is an elderly female with a past history of schizoaffective disorder, resident of a long term who was admitted to the emergency room of a local hospital for exacerbation of psychosis. The patient remains grossly psychotic unable to provide any information on admission. 09/25: Continue current regimen and plans Plan 1. As per court order we are increasing Zyprexa up to the maximum 30 mg a day. 5 mg p.o. b.i.d. and 20 mg p.o. q.h.s.. 2. Backup IM 20 mg IM if patient refused q.h.s. and 5 mg IM if the patient refuses in the morning. We are not going to put backup at noon time. 3. Waiting for improvement, this moment she is at the highest dose that the court order allows to use on her on Zyprexa. Reason for continued inpatient stay Substantial Risk for: inability to function, rapid decompensation and med/psych decompensation Time Spent With Patient Time: Total time managing care of this patient today _20___ minutes.
[2024-09-26 20:00] VITALS: BP 127/68; PULSE 86; RESP 18; TEMP 36.3; O2SAT 95
[2024-09-26] MEDS: OLANZapine 10 MG VIAL 20 MG IM (20:28)
[2024-09-26] MEDS: oxyBUTYnin chloride ER 5 MG TAB.ER.24 PO (20:30)
[2024-09-26] MEDS: Gabapentin 100 MG CAPSULE 200 MG PO (20:32)
[2024-09-26] MEDS: traZODone HCL 100 MG TABLET PO (20:32)
[2024-09-26] MEDS: Melatonin 3 MG TABLET PO ×2 (20:33→23:03)
[2024-09-27 06:50] LABS: Glucose, Whole Blood 120 mg/dL (60-115)
[2024-09-27 08:00] VITALS: BP 132/90; PULSE 90; RESP 18; TEMP 36; O2SAT 94
--- NOTE | 2024-09-27 09:08 | P.PNPSI_ITS ---
Subjective Subjective Date of Service: 09/27/24 Reason For Visit: Schizoaffective Subjective Notes: Conditional Voluntary Interim History: Pt slept through the night. She denies SI/HI. She reports she is open to meeting with but only in person. No behavioral concerns. She is taking medications as prescribed. Medication Compliance: Yes Side effects from medications: No Attending Groups: Yes Mental Status Exam Mental Status Exam Patient Appearance: Appropriate Patient Orientation: Person and Situation Level of Consciousness: Awake and Appropriate Patient Behavior: Guarded and Passive Mood Description: Withdrawn Affect Description: Constricted Patient Cognition Impaired: Yes Ability to Follow Directions: Good Speech Pattern: Clear Hallucinations: None Delusions: Paranoid Ideation and Ideas of Reference Thought Process: Distracted and Slowed Thinking Thought Content: positive for [place] and positive for Poverty of Content Judgement: Poor Diagnostics Vital Signs (24Hr): Vital Signs - 24 hr 09/26/24 20:00 Temperature 97.3 F Pulse Rate 86 Respiratory Rate 18 Blood Pressure 127/68 Pulse Oximetry 95 Oxygen Delivery Method Room Air Labs 09/02/24 09:08 09/02/24 09:08 Labs: Laboratory Results - last 48 hr 09/26/24 09/27/24 06:03 06:19 POC Glucose 99 120 H Medications Medications Current Medications Acetaminophen (Acetaminophen 325 Mg Tablet) 650 mg PO Q6H PRN PRN Reason: Headache/Pain Mild Scale (1-3) Last Admin: 09/26/24 13:05 Dose: 650 mg Al Hydroxide/Mg Hydroxide (Magnesium Hydrox/Alum Hydrox 30 Ml Oral.Susp) 30 ml PO Q6H PRN PRN Reason: Heartburn/Nausea Last Admin: 09/24/24 12:43 Dose: 30 ml Docusate Sodium (Docusate Sodium 100 Mg Capsule) 100 mg PO BID PRN PRN Reason: Constipation Gabapentin (Gabapentin 100 Mg Capsule) 200 mg PO BEDTIME [facility] Last Admin: 09/26/24 20:32 Dose: 200 mg Gabapentin (Gabapentin 100 Mg Capsule) 200 mg PO TID PRN PRN Reason: malissa/anxiety Last Admin: 09/23/24 09:20 Dose: 200 mg Hydroxyzine HCl (Hydroxyzine Hcl 25 Mg Tablet) 25 mg PO Q6H PRN PRN Reason: Anxiety Last Admin: 09/17/24 18:03 Dose: 25 mg Ibuprofen (Ibuprofen 800 Mg Tablet) 800 mg PO Q8H PRN PRN Reason: Pain, Severe (Pain Scale 7-10) Last Admin: 09/26/24 20:31 Dose: 800 mg Magnesium Hydroxide (Milk Of Magnesia 30 Ml Oral.Susp) 30 ml PO DAILY PRN PRN Reason: Constipation Magnesium Oxide (Magnesium Oxide 400 Mg Tablet) 400 mg PO BID [facility] Last Admin: 09/26/24 20:32 Dose: 400 mg Melatonin (Melatonin 3 Mg Tablet) 3 mg PO BEDTIME MRX1 [facility] Last Admin: 09/26/24 23:03 Dose: 3 mg Nifedipine (Nifedipine Er 30 Mg Tab.Er.24) 30 mg PO DAILY [facility]; Protocol Last Admin: 09/26/24 08:12 Dose: 30 mg Olanzapine (Olanzapine 5 Mg Tablet) 5 mg PO Q4H PRN PRN Reason: psychosis Last Admin: 09/20/24 00:20 Dose: 5 mg Olanzapine (Olanzapine Odt 10 Mg Tab.Rapdis) 20 mg TRANSLINGU BEDTIME [facility] Last Admin: 09/26/24 22:04 Dose: Not Given Olanzapine (Olanzapine 10 Mg Vial) 20 mg IM BEDTIME PRN PRN Reason: refusal of PO Zyprexa Last Admin: 09/26/24 20:28 Dose: 20 mg Olanzapine (Olanzapine 5 Mg Tablet) 5 mg PO BID@0830,1330 [facility] Last Admin: 09/26/24 13:06 Dose: 5 mg Olanzapine (Olanzapine 10 Mg Vial) 5 mg IM DAILY PRN PRN Reason: REFUSAL OF ZYPREXA 5 MG AM Omeprazole (Omeprazole 20 Mg Capsule.Dr) 20 mg PO BID@0630,1630 PRN PRN Reason: GERD Oxybutynin Chloride (Oxybutynin Chloride Er 5 Mg Tab.Er.24) 5 mg PO BEDTIME [facility] Last Admin: 09/26/24 20:30 Dose: 5 mg Senna (Sennosides 8.6 Mg Tablet) 17.2 mg PO BEDTIME PRN PRN Reason: Constipation Trazodone HCl (Trazodone Hcl 100 Mg Tablet) 100 mg PO BEDTIME [facility] Last Admin: 09/26/24 20:32 Dose: 100 mg Allergies Allergies Allergy/AdvReac Type Severity Reaction Status Date / Time nut - unspecified Allergy Unknown Verified 08/25/24 15:31 Assessment & Plan Assessment & Plan (1) Schizoaffective disorder: Status: Acute Code(s): F25.9 - Schizoaffective disorder, unspecified Plan The patient is an elderly female with a past history of schizoaffective disorder, resident of a senior living who was admitted to the emergency room of a local hospital for exacerbation of psychosis. The patient remains grossly psychotic unable to provide any information on admission. 09/25: Continue current regimen and plans Plan 09/27 continue tx. Reason for continued inpatient stay Substantial Risk for: inability to function Time Spent With Patient Time: Total time managing care of this patient today ____ minutes.
[2024-09-27] MEDS: Magnesium Oxide 400 MG TABLET PO ×2 (10:20→20:30)
[2024-09-27] MEDS: OLANZapine 5 MG TABLET PO ×3 (10:20→20:31)
[2024-09-27] MEDS: NIFEdipine ER 30 MG TAB.ER.24 PO (10:20)
[2024-09-27] MEDS: Ibuprofen 800 MG TABLET PO ×2 (10:20→20:29)
[2024-09-27] MEDS: Acetaminophen 325 MG TABLET 650 MG PO (10:58)
[2024-09-27] MEDS: Magnesium Hydrox/Alum Hydrox 30 ML ORAL.SUSP PO ×2 (10:59→20:29)
[2024-09-27 20:00] VITALS: BP 152/78; PULSE 90; RESP 16; TEMP 36.2; O2SAT 95
[2024-09-27] MEDS: Gabapentin 100 MG CAPSULE 200 MG PO (20:29)
[2024-09-27] MEDS: OLANZapine ODT 10 MG TAB.RAPDIS 20 MG TRANSLINGU (20:30)
[2024-09-27] MEDS: oxyBUTYnin chloride ER 5 MG TAB.ER.24 PO (20:30)
[2024-09-28 06:45] LABS: Glucose, Whole Blood 110 mg/dL (60-115)
[2024-09-28] MEDS: OLANZapine 5 MG TABLET PO ×2 (09:40→15:14)
[2024-09-28 09:41] VITALS: BP 128/69; PULSE 91; RESP 18; O2SAT 98
[2024-09-28] MEDS: NIFEdipine ER 30 MG TAB.ER.24 PO (09:41)
[2024-09-28] MEDS: Magnesium Oxide 400 MG TABLET PO ×2 (09:41→20:10)
[2024-09-28] MEDS: Ibuprofen 800 MG TABLET PO ×2 (10:13→20:10)
[2024-09-28] MEDS: Magnesium Hydrox/Alum Hydrox 30 ML ORAL.SUSP PO ×2 (15:14→20:12)
[2024-09-28] MEDS: Acetaminophen 325 MG TABLET 650 MG PO (15:15)
--- NOTE | 2024-09-28 15:20 | HO.PSYCHPN ---
Subjective Subjective Date of Service: 09/28/24 Reason For Visit: Schizoaffective Interim History: Pt seen and discussed with the team Plan of care reviewed Prefers to be called Brenda . Team reports pt accepts medicine and treatment but can be reactive and is disorganized. Pt is in her room today, she states What do you know about me? Leave. Irritable this a.m. Review of Systems Acute medical concerns: No Medical Review of Systems: unchanged Review of Systems Review of Systems Yes Unobtainable due to mental status Mental Status Exam Mental Status Exam Narrative: Alert, irritable. Speech clear. Affect and Mood are constricted, hostile. Presents with some confusion. Diagnostics Vital Signs (24Hr): Vital Signs - 24 hr 09/27/24 20:00 09/28/24 09:41 Temperature 97.1 F Pulse Rate 90 91 Respiratory Rate 16 18 Blood Pressure 152/78 H 128/69 Pulse Oximetry 95 98 Oxygen Delivery Method Room Air Room Air Labs 09/02/24 09:08 09/02/24 09:08 Labs: Laboratory Results - last 48 hr 09/27/24 09/28/24 06:19 06:41 POC Glucose 120 H 110 Medications Medications Current Medications Acetaminophen (Acetaminophen 325 Mg Tablet) 650 mg PO Q6H PRN PRN Reason: Headache/Pain Mild Scale (1-3) Last Admin: 09/28/24 15:15 Dose: 650 mg Al Hydroxide/Mg Hydroxide (Magnesium Hydrox/Alum Hydrox 30 Ml Oral.Susp) 30 ml PO Q6H PRN PRN Reason: Heartburn/Nausea Last Admin: 09/28/24 15:14 Dose: 30 ml Docusate Sodium (Docusate Sodium 100 Mg Capsule) 100 mg PO BID PRN PRN Reason: Constipation Gabapentin (Gabapentin 100 Mg Capsule) 200 mg PO BEDTIME [facility]AD Last Admin: 09/27/24 20:29 Dose: 200 mg Gabapentin (Gabapentin 100 Mg Capsule) 200 mg PO TID PRN PRN Reason: malissa/anxiety Last Admin: 09/23/24 09:20 Dose: 200 mg Hydroxyzine HCl (Hydroxyzine Hcl 25 Mg Tablet) 25 mg PO Q6H PRN PRN Reason: Anxiety Last Admin: 09/17/24 18:03 Dose: 25 mg Ibuprofen (Ibuprofen 800 Mg Tablet) 800 mg PO Q8H PRN PRN Reason: Pain, Severe (Pain Scale 7-10) Last Admin: 09/28/24 10:13 Dose: 800 mg Magnesium Hydroxide (Milk Of Magnesia 30 Ml Oral.Susp) 30 ml PO DAILY PRN PRN Reason: Constipation Magnesium Oxide (Magnesium Oxide 400 Mg Tablet) 400 mg PO BID [facility] Last Admin: 09/28/24 09:41 Dose: 400 mg Melatonin (Melatonin 3 Mg Tablet) 3 mg PO BEDTIME MRX1 [facility] Last Admin: 09/27/24 20:35 Dose: Not Given Nifedipine (Nifedipine Er 30 Mg Tab.Er.24) 30 mg PO DAILY [facility]; Protocol Last Admin: 09/28/24 09:41 Dose: 30 mg Olanzapine (Olanzapine 5 Mg Tablet) 5 mg PO Q4H PRN PRN Reason: psychosis Last Admin: 09/27/24 20:31 Dose: 5 mg Olanzapine (Olanzapine Odt 10 Mg Tab.Rapdis) 20 mg TRANSLINGU BEDTIME [facility] Last Admin: 09/27/24 20:30 Dose: 20 mg Olanzapine (Olanzapine 10 Mg Vial) 20 mg IM BEDTIME PRN PRN Reason: refusal of PO Zyprexa Last Admin: 09/26/24 20:28 Dose: 20 mg Olanzapine (Olanzapine 5 Mg Tablet) 5 mg PO BID@0830,1330 [facility] Last Admin: 09/28/24 15:14 Dose: 5 mg Olanzapine (Olanzapine 10 Mg Vial) 5 mg IM DAILY PRN PRN Reason: REFUSAL OF ZYPREXA 5 MG AM Omeprazole (Omeprazole 20 Mg Capsule.Dr) 20 mg PO BID@0630,1630 PRN PRN Reason: GERD Oxybutynin Chloride (Oxybutynin Chloride Er 5 Mg Tab.Er.24) 5 mg PO BEDTIME [facility] Last Admin: 09/27/24 20:30 Dose: 5 mg Senna (Sennosides 8.6 Mg Tablet) 17.2 mg PO BEDTIME PRN PRN Reason: Constipation Trazodone HCl (Trazodone Hcl 100 Mg Tablet) 100 mg PO BEDTIME [facility] Last Admin: 09/27/24 20:36 Dose: Not Given Allergies Allergies Allergy/AdvReac Type Severity Reaction Status Date / Time nut - unspecified Allergy Unknown Verified 08/25/24 15:31 Assessment & Plan Assessment & Plan (1) Schizoaffective disorder: Status: Acute Code(s): F25.9 - Schizoaffective disorder, unspecified Plan The patient is an elderly female with a past history of schizoaffective disorder, resident of a long term who was admitted to the emergency room of a local hospital for exacerbation of psychosis. The patient remains grossly psychotic unable to provide any information on admission. 09/25: Continue current regimen and plans Plan 09/27 continue tx. 09/28 Continue current regime and plan of care. Reason for continued inpatient stay Substantial Risk for: rapid decompensation Time Spent With Patient Time: Total time managing care of this patient today ____ minutes.
[2024-09-28 19:41] VITALS: BP 133/65; PULSE 92; O2SAT 96
[2024-09-28] MEDS: Melatonin 3 MG TABLET PO ×2 (20:10→21:03)
[2024-09-28] MEDS: oxyBUTYnin chloride ER 5 MG TAB.ER.24 PO (20:11)
[2024-09-28] MEDS: Gabapentin 100 MG CAPSULE 200 MG PO (20:11)
[2024-09-28] MEDS: traZODone HCL 100 MG TABLET PO (20:11)
[2024-09-28] MEDS: OLANZapine ODT 10 MG TAB.RAPDIS 20 MG TRANSLINGU (20:11)
[2024-09-29] MEDS: Ibuprofen 800 MG TABLET PO ×2 (10:06→20:36)
[2024-09-29] MEDS: Magnesium Oxide 400 MG TABLET PO ×2 (10:07→20:34)
[2024-09-29] MEDS: OLANZapine 5 MG TABLET PO ×2 (10:07→13:26)
[2024-09-29] MEDS: Magnesium Hydrox/Alum Hydrox 30 ML ORAL.SUSP PO ×2 (10:07→20:39)
[2024-09-29 10:17] VITALS: BP 145/65; PULSE 91; RESP 20; TEMP 36.6; O2SAT 95
[2024-09-29] MEDS: NIFEdipine ER 30 MG TAB.ER.24 PO (10:20)
[2024-09-29] MEDS: Acetaminophen 325 MG TABLET 650 MG PO (13:26)
--- NOTE | 2024-09-29 13:55 | HO.PSYCHPN ---
Subjective Subjective Date of Service: 09/29/24 Reason For Visit: Schizoaffective Interim History: Pt seen and reviewed with team. Plan of care was reviewed. Team reports a meeting has been scheduled with OP providers. Pt is pleased with this, however she remains distant, caustic at times. She is visable in milieu, mobile and goal oriented in her wheelchair Medication Compliance: Yes Review of Systems Review of Systems Yes all other systems are reviewed and are negative Mental Status Exam Mental Status Exam Narrative: Alert, irritable. Speech clear. Affect and Mood are constricted, hostile. Presents with some confusion. Diagnostics Vital Signs (24Hr): Vital Signs - 24 hr 09/28/24 19:41 09/29/24 10:17 Temperature 97.9 F Pulse Rate 92 91 Respiratory Rate 20 Blood Pressure 133/65 145/65 H Pulse Oximetry 96 95 Oxygen Delivery Method Room Air Room Air Labs 09/02/24 09:08 09/02/24 09:08 Labs: Laboratory Results - last 48 hr 09/28/24 06:41 POC Glucose 110 Medications Medications Current Medications Acetaminophen (Acetaminophen 325 Mg Tablet) 650 mg PO Q6H PRN PRN Reason: Headache/Pain Mild Scale (1-3) Last Admin: 09/29/24 13:26 Dose: 650 mg Al Hydroxide/Mg Hydroxide (Magnesium Hydrox/Alum Hydrox 30 Ml Oral.Susp) 30 ml PO Q6H PRN PRN Reason: Heartburn/Nausea Last Admin: 09/29/24 10:07 Dose: 30 ml Docusate Sodium (Docusate Sodium 100 Mg Capsule) 100 mg PO BID PRN PRN Reason: Constipation Gabapentin (Gabapentin 100 Mg Capsule) 200 mg PO BEDTIME [facility] Last Admin: 09/28/24 20:11 Dose: 200 mg Gabapentin (Gabapentin 100 Mg Capsule) 200 mg PO TID PRN PRN Reason: malissa/anxiety Last Admin: 09/23/24 09:20 Dose: 200 mg Hydroxyzine HCl (Hydroxyzine Hcl 25 Mg Tablet) 25 mg PO Q6H PRN PRN Reason: Anxiety Last Admin: 09/17/24 18:03 Dose: 25 mg Ibuprofen (Ibuprofen 800 Mg Tablet) 800 mg PO Q8H PRN PRN Reason: Pain, Severe (Pain Scale 7-10) Last Admin: 09/29/24 10:06 Dose: 800 mg Magnesium Hydroxide (Milk Of Magnesia 30 Ml Oral.Susp) 30 ml PO DAILY PRN PRN Reason: Constipation Magnesium Oxide (Magnesium Oxide 400 Mg Tablet) 400 mg PO BID [facility] Last Admin: 09/29/24 10:07 Dose: 400 mg Melatonin (Melatonin 3 Mg Tablet) 3 mg PO BEDTIME MRX1 [facility] Last Admin: 09/28/24 21:03 Dose: 3 mg Nifedipine (Nifedipine Er 30 Mg Tab.Er.24) 30 mg PO DAILY [facility]; Protocol Last Admin: 09/29/24 10:20 Dose: 30 mg Olanzapine (Olanzapine 5 Mg Tablet) 5 mg PO Q4H PRN PRN Reason: psychosis Last Admin: 09/27/24 20:31 Dose: 5 mg Olanzapine (Olanzapine Odt 10 Mg Tab.Rapdis) 20 mg TRANSLINGU BEDTIME [facility] Last Admin: 09/28/24 20:11 Dose: 20 mg Olanzapine (Olanzapine 10 Mg Vial) 20 mg IM BEDTIME PRN PRN Reason: refusal of PO Zyprexa Last Admin: 09/26/24 20:28 Dose: 20 mg Olanzapine (Olanzapine 5 Mg Tablet) 5 mg PO BID@0830,1330 [facility] Last Admin: 09/29/24 13:26 Dose: 5 mg Olanzapine (Olanzapine 10 Mg Vial) 5 mg IM DAILY PRN PRN Reason: REFUSAL OF ZYPREXA 5 MG AM Omeprazole (Omeprazole 20 Mg Capsule.Dr) 20 mg PO BID@0630,1630 PRN PRN Reason: GERD Oxybutynin Chloride (Oxybutynin Chloride Er 5 Mg Tab.Er.24) 5 mg PO BEDTIME [facility] Last Admin: 09/28/24 20:11 Dose: 5 mg Senna (Sennosides 8.6 Mg Tablet) 17.2 mg PO BEDTIME PRN PRN Reason: Constipation Trazodone HCl (Trazodone Hcl 100 Mg Tablet) 100 mg PO BEDTIME [facility] Last Admin: 09/28/24 20:11 Dose: 100 mg Allergies Allergies Allergy/AdvReac Type Severity Reaction Status Date / Time nut - unspecified Allergy Unknown Verified 08/25/24 15:31 Assessment & Plan Assessment & Plan (1) Schizoaffective disorder: Status: Acute Code(s): F25.9 - Schizoaffective disorder, unspecified Plan The patient is an elderly female with a past history of schizoaffective disorder, resident of a snf who was admitted to the emergency room of a local hospital for exacerbation of psychosis. The patient remains grossly psychotic unable to provide any information on admission. 09/25: Continue current regimen and plans Plan 09/27 continue tx. 09/28 Continue current regime and plan of care. 09/29 Continue current regime and plan of care. Reason for continued inpatient stay Substantial Risk for: rapid decompensation Time Spent With Patient Time: Total time managing care of this patient today ____ minutes.
[2024-09-29 20:00] VITALS: BP 142/81; PULSE 90; RESP 16; TEMP 36.7; O2SAT 94
[2024-09-29] MEDS: Gabapentin 100 MG CAPSULE 200 MG PO (20:35)
[2024-09-29] MEDS: Melatonin 3 MG TABLET PO ×2 (20:35→22:24)
[2024-09-29] MEDS: oxyBUTYnin chloride ER 5 MG TAB.ER.24 PO (20:35)
[2024-09-29] MEDS: traZODone HCL 100 MG TABLET PO (20:35)
[2024-09-29] MEDS: OLANZapine ODT 10 MG TAB.RAPDIS 20 MG TRANSLINGU (20:36)
[2024-09-30] MEDS: Ibuprofen 800 MG TABLET PO ×2 (04:24→19:52)
[2024-09-30 06:49] LABS: Glucose, Whole Blood 111 mg/dL (60-115)
[2024-09-30 08:10] VITALS: BP 108/57; PULSE 78; RESP 17; TEMP 36.6; O2SAT 97
[2024-09-30] MEDS: OLANZapine 5 MG TABLET PO ×2 (08:11→12:51)
[2024-09-30] MEDS: NIFEdipine ER 30 MG TAB.ER.24 PO (08:12)
[2024-09-30] MEDS: Magnesium Oxide 400 MG TABLET PO ×2 (08:12→19:47)
--- NOTE | 2024-09-30 12:30 | P.PNPSI_ITS ---
Subjective Subjective Date of Service: 09/30/24 Reason For Visit: Schizoaffective Subjective Notes: Section 7 and Section 8 Interim History: THE NURSING STAFF REPORTED THE PATIENT HAD BEEN COMPLIANT WITH TREATMENT, NO MAJOR CHANGES IN HER MENTAL STATUS. THE PATIENT WILL BE DISCHARGED TOMORROW, SCRIPT SENT TODAY. ON INTERVIEW THE PATIENT DENIES NEW SYMPTOMS. Mental Status Exam Mental Status Exam Patient Appearance: Appropriate Patient Orientation: Person and Situation Level of Consciousness: Awake and Appropriate Patient Behavior: Guarded and Passive Mood Description: Withdrawn and Constricted Affect Description: Calm Ability to Follow Directions: Good Speech Pattern: Clear Hallucinations: None Delusions: Paranoid Ideation and Ideas of Reference Thought Process: Distracted and Slowed Thinking Thought Content: positive for [place] and positive for Poverty of Content Judgement: Fair Diagnostics Vital Signs (24Hr): Vital Signs - 24 hr 09/29/24 20:00 09/30/24 08:10 Temperature 98.1 F 98 F Pulse Rate 90 78 Respiratory Rate 16 17 Blood Pressure 142/81 H 108/57 L Pulse Oximetry 94 97 Oxygen Delivery Method Room Air Room Air Labs 09/02/24 09:08 09/02/24 09:08 Labs: Laboratory Results - last 48 hr 09/30/24 06:38 POC Glucose 111 Medications Medications Current Medications Acetaminophen (Acetaminophen 325 Mg Tablet) 650 mg PO Q6H PRN PRN Reason: Headache/Pain Mild Scale (1-3) Last Admin: 09/29/24 13:26 Dose: 650 mg Al Hydroxide/Mg Hydroxide (Magnesium Hydrox/Alum Hydrox 30 Ml Oral.Susp) 30 ml PO Q6H PRN PRN Reason: Heartburn/Nausea Last Admin: 09/29/24 20:39 Dose: 30 ml Docusate Sodium (Docusate Sodium 100 Mg Capsule) 100 mg PO BID PRN PRN Reason: Constipation Gabapentin (Gabapentin 100 Mg Capsule) 200 mg PO BEDTIME [facility] Last Admin: 09/29/24 20:35 Dose: 200 mg Gabapentin (Gabapentin 100 Mg Capsule) 200 mg PO TID PRN PRN Reason: malissa/anxiety Last Admin: 09/23/24 09:20 Dose: 200 mg Hydroxyzine HCl (Hydroxyzine Hcl 25 Mg Tablet) 25 mg PO Q6H PRN PRN Reason: Anxiety Last Admin: 09/17/24 18:03 Dose: 25 mg Ibuprofen (Ibuprofen 800 Mg Tablet) 800 mg PO Q8H PRN PRN Reason: Pain, Severe (Pain Scale 7-10) Last Admin: 09/30/24 04:24 Dose: 800 mg Magnesium Hydroxide (Milk Of Magnesia 30 Ml Oral.Susp) 30 ml PO DAILY PRN PRN Reason: Constipation Magnesium Oxide (Magnesium Oxide 400 Mg Tablet) 400 mg PO BID [facility] Last Admin: 09/30/24 08:12 Dose: 400 mg Melatonin (Melatonin 3 Mg Tablet) 3 mg PO BEDTIME MRX1 [facility] Last Admin: 09/29/24 22:24 Dose: 3 mg Nifedipine (Nifedipine Er 30 Mg Tab.Er.24) 30 mg PO DAILY [facility]; Protocol Last Admin: 09/30/24 08:12 Dose: 30 mg Olanzapine (Olanzapine 5 Mg Tablet) 5 mg PO Q4H PRN PRN Reason: psychosis Last Admin: 09/27/24 20:31 Dose: 5 mg Olanzapine (Olanzapine Odt 10 Mg Tab.Rapdis) 20 mg TRANSLINGU BEDTIME [facility] Last Admin: 09/29/24 20:36 Dose: 20 mg Olanzapine (Olanzapine 10 Mg Vial) 20 mg IM BEDTIME PRN PRN Reason: refusal of PO Zyprexa Last Admin: 09/26/24 20:28 Dose: 20 mg Olanzapine (Olanzapine 5 Mg Tablet) 5 mg PO BID@0830,1330 [facility] Last Admin: 09/30/24 08:11 Dose: 5 mg Olanzapine (Olanzapine 10 Mg Vial) 5 mg IM DAILY PRN PRN Reason: REFUSAL OF ZYPREXA 5 MG AM Omeprazole (Omeprazole 20 Mg Capsule.Dr) 20 mg PO BID@0630,1630 PRN PRN Reason: GERD Oxybutynin Chloride (Oxybutynin Chloride Er 5 Mg Tab.Er.24) 5 mg PO BEDTIME [facility] Last Admin: 09/29/24 20:35 Dose: 5 mg Senna (Sennosides 8.6 Mg Tablet) 17.2 mg PO BEDTIME PRN PRN Reason: Constipation Trazodone HCl (Trazodone Hcl 100 Mg Tablet) 100 mg PO BEDTIME [facility] Last Admin: 09/29/24 20:35 Dose: 100 mg Allergies Allergies Allergy/AdvReac Type Severity Reaction Status Date / Time nut - unspecified Allergy Unknown Verified 08/25/24 15:31 Assessment & Plan Assessment & Plan (1) Schizoaffective disorder: Status: Acute Code(s): F25.9 - Schizoaffective disorder, unspecified Plan The patient is an elderly female with a past history of schizoaffective disorder, resident of a senior living who was admitted to the emergency room of a local hospital for exacerbation of psychosis. The patient remains grossly psychotic unable to provide any information on admission. 09/25: Continue current regimen and plans Plan 09/27 continue tx. 09/28 Continue current regime and plan of care. continue same treatment, discharge tomorrow Reason for continued inpatient stay Substantial Risk for: inability to function, rapid decompensation and med/psych decompensation Time Spent With Patient Time: Total time managing care of this patient today __20__ minutes.
[2024-09-30] MEDS: traZODone HCL 100 MG TABLET PO (19:47)
[2024-09-30] MEDS: Melatonin 3 MG TABLET PO (19:47)
[2024-09-30] MEDS: Gabapentin 100 MG CAPSULE 200 MG PO (19:47)
[2024-09-30] MEDS: oxyBUTYnin chloride ER 5 MG TAB.ER.24 PO (19:47)
[2024-09-30] MEDS: OLANZapine ODT 10 MG TAB.RAPDIS 20 MG TRANSLINGU (19:48)
[2024-09-30 20:00] VITALS: BP 133/63; PULSE 90; RESP 16; TEMP 36.5; O2SAT 99
[2024-10-01 05:23] LABS: Glucose, Whole Blood 152 mg/dL (60-115)
[2024-10-01 08:00] VITALS: BP 143/78; PULSE 81; RESP 16; TEMP 36.1; O2SAT 94
--- NOTE | 2024-10-01 08:01 | PM.PSYDC ---
DS: Providers Provider Date of Service: 10/01/24 Date of admission: 08/25/24 13:52 Date of discharge: 10/01/24 Primary care physician: None Physician Consults: 08/25/24 14:24 Consult to Hospitalist Routine Comment: [place] [facility] [place] Reason For Exam: OSH admission DS: Diagnosis Discharge Diagnosis (1) Schizoaffective disorder: Status: Acute DS: Medications Discharge Medications Home Medications: Home Medications ?Medication ?Instructions ?Recorded ?Confirmed Colace 100 mg PO 2XD PRN Constipation 08/25/24 08/25/24 Ditropan XL 10 mg PO BEDTIME 08/25/24 08/25/24 Dulera 2 inhalation BID 08/25/24 MagOx 400 mg PO 1XD 08/25/24 08/25/24 Nifedical XL 30 mg PO 1XD 08/25/24 08/25/24 Protonix 20 mg PO DAILY 08/25/24 08/25/24 Prozac 40 mg PO DAILY 08/25/24 08/25/24 Senokot 17.2 mg PO BEDTIME PRN Constipation 08/25/24 08/25/24 calcium carbonate 1,000 mg 2XD PRN Heartburn 08/25/24 08/25/24 gabapentin 300 mg PO 3XD 08/25/24 08/25/24 olanzapine 15 mg PO BEDTIME 08/25/24 08/25/24 trazodone 50 mg PO BEDTIME 08/25/24 08/25/24 Previous Rx's ?Medication ?Instructions ?Recorded Januvia 50 mg PO DAILY 30 days #30 tabs 09/30/24 acetaminophen 325 mg tablet 650 mg (2 x 325 mg) PO Q6H PRN 09/30/24 Headache/Pain Mild Scale (1-3) 30 days #60 tabs gabapentin 100 mg capsule 200 mg (2 x 100 mg) PO BEDTIME 30 09/30/24 days #60 caps gabapentin 100 mg capsule 200 mg (2 x 100 mg) PO TID PRN 09/30/24 malissa/anxiety 30 days #60 caps ibuprofen 800 mg tablet 800 mg PO Q8H PRN Pain, Severe 09/30/24 (Pain Scale 7-10) 30 days #60 tabs magnesium oxide 400 mg (241.3 mg 400 mg PO BID 30 days #60 tabs 09/30/24 magnesium) tablet melatonin 3 mg tablet 3 mg PO BEDTIME MRX1 30 days #60 09/30/24 tabs metformin 500 mg PO BID 30 days #60 tabs 09/30/24 nifedipine 30 mg tablet,extended 30 mg PO DAILY 30 days #30 tabs 09/30/24 release 24 hr olanzapine 5 mg tablet 5 mg PO BID@0830,1330 30 days #60 24 tabs omeprazole 20 mg capsule,delayed 20 mg PO BID@0630,1630 PRN GERD 30 09/30/24 release days #60 caps oxybutynin chloride 5 mg 5 mg PO BEDTIME 30 days #30 tabs 09/30/24 tablet,extended release 24 hr sennosides 8.6 mg tablet (Senna 17.2 mg (2 x 8.6 mg) PO BEDTIME 09/30/24 Lax) PRN Constipation 30 days #60 tabs trazodone 100 mg tablet 100 mg PO BEDTIME 30 days #30 tabs 09/30/24 Mental Status Exam Mental Status Exam Patient Appearance: Appropriate Patient Orientation: Person and Situation Level of Consciousness: Awake and Appropriate Patient Behavior: Guarded and Passive Mood Description: Withdrawn Affect Description: Constricted Patient Cognition Impaired: Yes Ability to Follow Directions: Good Speech Pattern: Clear Hallucinations: None Delusions: Paranoid Ideation and Ideas of Reference Thought Process: Distracted and Slowed Thinking Thought Content: positive for [place] and positive for Circumstantial Judgement: Fair Data Data Completed and Pending Completed studies during hospitalization [Text1]: 09/25/24 09/26/24 09/27/24 05:42 06:03 06:19 POC Glucose 119 H 99 120 H 09/28/24 09/30/24 10/01/24 06:41 06:38 05:20 POC Glucose 110 111 152 H DS: Summary Hospital Course Hospital Course: The patient is a 59-year-old female with a long history of schizoaffective disorder bipolar type chronically mentally ill, resident for nursing home with [facility] services referred to the emergency room for exacerbation of psychosis. The patient has a court order for treatment over objection and apparently she decompensated in the last months with psych times elicited by paranoia, irritability and flight of ideas. The by the care team and transferring to this facility for psychiatric stabilization. Please see the HPI of the admission note further details. He scored the, the patient had been night. We reviewed court order and the maximum dose was 30 mg a day slow titration up to 20 mg p.o. q.h.s. but to increase was not helpful, the patient remained with labile mood and episodes of irritability with psychotic symptoms and paranoia. The patient has a guardian and we contact the guardian for more collateral information at baseline the patient is chronically psychotic. We decided to increase the Zyprexa up to the total dose of 30 mg a day so as per court order. We increase the Zyprexa 5 mg p.o. b.i.d. and 20 mg p.o. q.h.s.. The patient's mood improved slightly he she was more cooperative and pleasant still with some elusive thinking but easily redirectable. Since there were no safety concerns discharge planning was discussed. Time spent discussing smoking cessation with patient: 3 to 10 minutes Status at Discharge Cognitive/behavioral status at discharge: At baseline Functional status at discharge: independent ambulation Overall status at discharge: patient is back to baseline Time Spent with Patient Time attestation: Total time managing care of this patient today __30__ minutes. Time spent: Less than 30 minutes Discharge Plan Discharge Anticipated Discharge Date/Time: 10/01/24 10:00 Patient Disposition: Home, Self-Care Discharge Diagnosis: Schizoaffective disorder Referrals: Dr Loera cold type artist [Other] - 1 Week ([facility] will make follow up PCP appointment for you per their request. ) [facility] [Other] - 10/01/24 (Transfer back to [facility] with [facility] and follow up with your outpatient providers as needed. ) [facility] [Other] - 1 Week (Your [facility] nursing home to make appointment with your psychiatry provider. ) [facility] [Other] - 3-5 Days (Your [facility], will follow up with you in community. ) Discharge Medications: New nifedipine 30 mg Tablet Extended Release 24hr 30 mg PO DAILY 30 Days Qty: 30 0RF Protocol: Hold for SBP< HOLD for SBP < : 90 sennosides [Senna Lax] 8.6 mg Tablet 17.2 mg PO BEDTIME PRN (Reason: Constipation) 30 Days Qty: 60 0RF acetaminophen 325 mg Tablet 650 mg PO Q6H PRN (Reason: Headache/Pain Mild Scale (1-3)) 30 Days Qty: 60 0RF ibuprofen 800 mg Tablet 800 mg PO Q8H PRN (Reason: Pain, Severe (Pain Scale 7-10)) 30 Days Qty: 60 0RF olanzapine 5 mg Tablet 5 mg PO BID@0830,1330 30 Days Qty: 60 0RF melatonin 3 mg Tablet 3 mg PO BEDTIME MRX1 30 Days Qty: 60 0RF magnesium oxide 400 mg (241.3 mg magnesium) Tablet 400 mg PO BID 30 Days Qty: 60 0RF trazodone 100 mg Tablet 100 mg PO BEDTIME 30 Days Qty: 30 0RF oxybutynin chloride 5 mg Tablet Extended Release 24hr 5 mg PO BEDTIME 30 Days Qty: 30 0RF omeprazole 20 mg Capsule,Delayed Release(Dr/Ec) 20 mg PO BID@0630,1630 PRN (Reason: GERD) 30 Days Qty: 60 0RF gabapentin 100 mg Capsule 200 mg PO TID PRN (Reason: malissa/anxiety) 30 Days Qty: 60 0RF gabapentin 100 mg Capsule 200 mg PO BEDTIME 30 Days Qty: 60 0RF olanzapine [Zyprexa] 20 mg tablet 20 mg PO BEDTIME Qty: 30 0RF Continued Januvia tablet 50 mg PO DAILY 30 Days Qty: 30 0RF metformin tablet 500 mg PO BID 30 Days Qty: 60 0RF Rx Instructions: with breakfast and dinner Discontinued calcium carbonate tablet 1,000 mg 2XD PRN (Reason: Heartburn) Colace capsule 100 mg PO 2XD PRN (Reason: Constipation) Prozac capsule 40 mg PO DAILY gabapentin capsule 300 mg PO 3XD MagOx tablet 400 mg PO 1XD Dulera inhaler 2 inhalation BID Rx Instructions: 100-5 mcg Nifedical XL tablet 30 mg PO 1XD olanzapine tablet 15 mg PO BEDTIME Ditropan XL tablet 10 mg PO BEDTIME Protonix tablet 20 mg PO DAILY Rx Instructions: before breakfast Senokot tablet 17.2 mg PO BEDTIME PRN (Reason: Constipation) trazodone tablet 50 mg PO BEDTIME Discharge Orders: Discharge Order (Routine); Ordered 10/01/24 Ordered By: Bubba Fish Diet: Advance to usual diet Activity on Discharge: As tolerated Stand Alone Forms: Patient Portal Discharge page Print Language: Martiniquais Care Plan Goals: Care plan goals achieved in this admission Health Concerns: Continue treatment with primary care physician and other outpatient specialist Plan of Treatment: Continue with psychiatric treatment as an outpatient Assessment: The patient is an elderly female with a past history of schizoaffective disorder, [facility] case managed living in a nursing home who decompensate in the last weeks with psychotic symptoms and mood lability. We increase the Zyprexa to the maximum dose as per court order with some improvement. As per her guardian and other caregivers the patient is at baseline ready for discharge. No acute safety concerns.
[2024-10-01] MEDS: NIFEdipine ER 30 MG TAB.ER.24 PO (08:23)
[2024-10-01] MEDS: Magnesium Oxide 400 MG TABLET PO (08:23)
[2024-10-01] MEDS: OLANZapine 5 MG TABLET PO (08:23)
[2024-10-01] MEDS: Ibuprofen 800 MG TABLET PO (08:26)
== END 2024-10-01 13:42 | disposition home or self-care (01) | DRG 885 ==
PROVIDERS: Admitting Provider Psychiatry & Neurology Psychiatry; Visit Provider Psychiatry & Neurology Psychiatry
DX: F25.9 Schizoaffective disorder, unspecified (principal); K21.9 Gastro-esophageal reflux disease without esophagitis; E11.42 Type 2 diabetes mellitus with diabetic polyneuropathy; I10 Essential (primary) hypertension; Z91.148 Patient's other noncompliance with medication regimen for other reason; Z89.611 Acquired absence of right leg above knee; Z79.84 Long term (current) use of oral hypoglycemic drugs; Z79.899 Other long term (current) drug therapy
CPT/HCPCS: 36415; 80053; 80061; 82607; 82746; 82947; 83036; 84439; 84443; 85025; J2359

== ENCOUNTER → 2024-08-25 13:52 | Outpatient (BNV) | payer OTHER, SELFPAY | PROVIDERS: Admitting Provider Psychiatry & Neurology Psychiatry; Visit Provider Psychiatry & Neurology Psychiatry | DX: F25.0 Schizoaffective disorder, bipolar type (principal) | CPT/HCPCS: 90792; 99231; 99232 ==

== ENCOUNTER → 2024-08-25 13:52 | Outpatient (BNV) | payer OTHER, SELFPAY | PROVIDERS: Admitting Provider Psychiatry & Neurology Psychiatry; Visit Provider Student in an Organized Health Care Education/Training Program | DX: I10 Essential (primary) hypertension (principal); E11.40 Type 2 diabetes mellitus with diabetic neuropathy, unspecified; K21.9 Gastro-esophageal reflux disease without esophagitis | CPT/HCPCS: 99222 ==

== ENCOUNTER → 2024-08-25 13:52 | Outpatient (BNV) | payer OTHER, SELFPAY | PROVIDERS: Admitting Provider Psychiatry & Neurology Psychiatry; Visit Provider Psychiatry & Neurology Psychiatry | DX: F25.0 Schizoaffective disorder, bipolar type (principal) | CPT/HCPCS: 99231 ==